=== PATIENT | female | born 1940 | race Caucasian/White ===

== ENCOUNTER → 2016-05-13 | Outpatient (REF) | payer MEDICARE ==
[2016-05-13 11:18] LABS: CALCIUM LEVEL 8.9 MG/DL (8.8-10.2); CREATININE FOR GFR 1.04 MG/DL (0.55-1.02); GLOMERULAR FILTRATION RATE 54.8 (>39); POTASSIUM SERUM 4.6 MEQ/L (3.5-5.1)
== END ==
LOC: M SFHCCLAY 07:20
PROVIDERS: ATTEND Family Medicine
DX: E11.9 Type 2 diabetes mellitus without complications (principal); I10 Essential (primary) hypertension; E78.00 Pure hypercholesterolemia, unspecified

== ENCOUNTER → 2016-05-17 | Outpatient (REF) | payer MEDICARE | LOC: M SFHCCLAY 09:36 | PROVIDERS: ATTEND Family Medicine | DX: Z00.00 Encounter for general adult medical examination without abnormal findings (principal); Z51.81 Encounter for therapeutic drug level monitoring; M79.661 Pain in right lower leg ==

== ENCOUNTER → 2016-09-13 | Outpatient (REF) | payer MEDICARE | LOC: M SFHCCLAY 09:57 | PROVIDERS: ATTEND Family Medicine | DX: E11.9 Type 2 diabetes mellitus without complications (principal) | CPT/HCPCS: 83036; G0463 ==

== ENCOUNTER → 2016-12-22 | Outpatient (REF) | payer MEDICARE ==
[2016-12-22 13:56] LABS: CALCIUM LEVEL 8.9 MG/DL (8.8-10.2); CREATININE FOR GFR 1.02 MG/DL (0.55-1.02); GLOMERULAR FILTRATION RATE 55.9 (>39); POTASSIUM SERUM 4.6 MEQ/L (3.5-5.1)
== END ==
LOC: M LABDRAWC 11:43
PROVIDERS: ATTEND Orthopaedic Surgery
DX: Z01.818 Encounter for other preprocedural examination (principal); M19.011 Primary osteoarthritis, right shoulder

== ENCOUNTER → 2017-04-13 | Outpatient (REF) | payer MEDICARE ==
[2017-04-13 12:16] LABS: ANION GAP 8 MEQ/L (8-16); BLOOD UREA NITROGEN 19 MG/DL (7-18); CALCIUM LEVEL 8.8 MG/DL (8.8-10.2); CARBON DIOXIDE LEVEL 28 MEQ/L (21-32); CHLORIDE LEVEL 104 MEQ/L (98-107); GLOMERULAR FILTRATION RATE > 60.0 (>39); GLUCOSE, FASTING 179 MG/DL (83-110); POTASSIUM SERUM 4.9 MEQ/L (3.5-5.1); SODIUM LEVEL 140 MEQ/L (136-145)
== END ==
LOC: M SFHCCLAY 09:32
PROVIDERS: ATTEND Family Medicine
DX: E11.9 Type 2 diabetes mellitus without complications (principal); I10 Essential (primary) hypertension

== ENCOUNTER → 2017-06-07 | Outpatient (REF) | payer MEDICARE | LOC: M SFHCCLAY 16:29 | DX: N30.90 Cystitis, unspecified without hematuria (principal) | CPT/HCPCS: 87186 ==

== ENCOUNTER → 2017-10-25 | Outpatient (CLI) | payer MEDICARE ==
[2017-10-25 11:29] LABS: INR 1.03; PROTHROMBIN TIME 13.6 SECONDS (12.1-14.4)
[2017-10-25 11:30] LABS: PARTIAL THROMBOPLASTIN TIME 28.3 SECONDS (25.4-37.6)
[2017-10-25 11:59] LABS: HEPATITIS B SURFACE ANTIGEN NEGATIVE (NEGATIVE)
[2017-10-25 12:11] LABS: ALBUMIN 3.5 GM/DL (3.2-5.2); ALBUMIN/GLOBULIN RATIO 1.09 (1.00-1.93); ALKALINE PHOSPHATASE 75 U/L (45-117); ALT/SGPT 40 U/L (12-78); AST/SGOT 33 U/L (7-37); BILIRUBIN,DIRECT 0.1 MG/DL (0.0-0.2); BILIRUBIN,TOTAL 0.5 MG/DL (0.2-1.0); IRON (FE) 75 UG/DL (50-170); PERCENT SATURATION 18.9 % (13.2-45.0); TOTAL IRON BINDING CAPACITY 396 UG/DL (250-450); TOTAL PROTEIN 6.7 GM/DL (6.4-8.2)
[2017-10-25 12:24] LABS: HEPATITIS C VIRUS ABY INDEX 0.1 INDEX (<0.8)
[2017-10-25 12:25] LABS: HEPATITIS B CORE ANTIBODY IGM NEGATIVE (NEGATIVE)
[2017-10-25 12:30] LABS: HEPATITIS A ANTIBODY IGM NEGATIVE (NEGATIVE)
[2017-10-28 00:14] LABS: ANCA-ATYPICAL <1:20 titer (Neg:<1:20); ANTI-MITOCHONDRIAL ANTIBODY 1.4 Units (0.0-20.0); ANTINUCLEAR ANTIBODIES DIRECT Negative (Negative); CYTOPLASMIC NEUTROP AB ANCA-C <1:20 titer (Neg:<1:20); PERINUCLEAR AB ANCA-P <1:20 titer (Neg:<1:20)
== END ==
LOC: M LAB 10:23
DX: R13.10 Dysphagia, unspecified (principal)
CPT/HCPCS: 83550

== ENCOUNTER → 2017-11-15 | Outpatient (CLI) | payer MEDICARE ==
[~2017-11-15] MED LIST: E-Z-GAS II EFFERVESCENT PACKET (SODIUM BICARB./CITRIC ACID/SIMETHICONE) As Ordered; E-Z-HD 98% w/w 340GM SUSP BTL As Ordered; E-Z-PAQUE 96% w/w SUSP 176GM BTL As Ordered
== END ==
LOC: M RAD 08:19
DX: K44.9 Diaphragmatic hernia without obstruction or gangrene (principal); K21.9 Gastro-esophageal reflux disease without esophagitis; R13.10 Dysphagia, unspecified
CPT/HCPCS: 74220

== ENCOUNTER 2017-12-07 08:03 | Day surgery (SDC) | payer MEDICARE ==
[~2017-12-07 08:03] MED LIST changes: -E-Z-GAS II EFFERVESCENT PACKET (SODIUM BICARB./CITRIC ACID/SIMETHICONE) As Ordered; -E-Z-HD 98% w/w 340GM SUSP BTL As Ordered; -E-Z-PAQUE 96% w/w SUSP 176GM BTL As Ordered; +LIDOCAINE 2% INJ 100 MG/5 ML SDV (FOR ANES.) As Ordered; +PROPOFOL 200 MG/20 ML VIAL As Ordered
[2017-12-07] MEDS ORDERED: NS 1,000 ML IV (08:15)
== END 2017-12-07 10:41 | disposition home or self-care (01) ==
LOC: M OPP 08:03
DX: R93.3 Abnormal findings on diagnostic imaging of other parts of digestive tract (principal); K57.32 Diverticulitis of large intestine without perforation or abscess without bleeding; D12.2 Benign neoplasm of ascending colon; K63.89 Other specified diseases of intestine; K57.30 Diverticulosis of large intestine without perforation or abscess without bleeding; K64.8 Other hemorrhoids; R13.10 Dysphagia, unspecified; Q39.4 Esophageal web; K22.2 Esophageal obstruction; K44.9 Diaphragmatic hernia without obstruction or gangrene; I10 Essential (primary) hypertension; E78.5 Hyperlipidemia, unspecified; E11.9 Type 2 diabetes mellitus without complications; M19.90 Unspecified osteoarthritis, unspecified site; Z78.0 Asymptomatic menopausal state; Z87.891 Personal history of nicotine dependence; Z88.8 Allergy status to other drugs, medicaments and biological substances; Z88.0 Allergy status to penicillin; Z79.84 Long term (current) use of oral hypoglycemic drugs; Z79.899 Other long term (current) drug therapy; Z80.6 Family history of leukemia; Z80.3 Family history of malignant neoplasm of breast; Z80.49 Family history of malignant neoplasm of other genital organs
CPT/HCPCS: 45385

== ENCOUNTER → 2018-02-23 | Outpatient (REF) | payer MEDICARE ==
[2018-02-23 12:31] LABS: ALBUMIN 3.4 GM/DL (3.2-5.2); ALKALINE PHOSPHATASE 79 U/L (45-117); ALT/SGPT 42 U/L (12-78); ANION GAP 7 MEQ/L (8-16); AST/SGOT 27 U/L (7-37); BILIRUBIN,TOTAL 0.4 MG/DL (0.2-1.0); BLOOD UREA NITROGEN 22 MG/DL (7-18); CALCIUM LEVEL 8.8 MG/DL (8.8-10.2); CARBON DIOXIDE LEVEL 25 MEQ/L (21-32); CHLORIDE LEVEL 108 MEQ/L (98-107); CHOLESTEROL LEVEL 161 MG/DL (<200); CHOLESTEROL RISK RATIO 4.735 (<5); CREATININE FOR GFR 0.99 MG/DL (0.55-1.30); GLOMERULAR FILTRATION RATE 57.8 (>39); GLUCOSE, FASTING 172 MG/DL (70-100); HDL CHOLESTEROL 34 MG/DL (>40); LDL CHOLESTEROL 94 MG/DL (<100); NON-HDL-C 127 MG/DL; POTASSIUM SERUM 4.9 MEQ/L (3.5-5.1); SODIUM LEVEL 140 MEQ/L (136-145); TOTAL PROTEIN 6.5 GM/DL (6.4-8.2); TRIGLYCERIDES LEVEL 166 MG/DL (<150)
[2018-02-23 14:37] LABS: ESTIMATED AVERAGE GLUCOSE 174 MG/DL (60-110); HEMOGLOBIN A1c 7.7 %
== END ==
LOC: M SFHCCLAY 06:53
DX: E11.9 Type 2 diabetes mellitus without complications (principal); I10 Essential (primary) hypertension
CPT/HCPCS: 84443

== ENCOUNTER → 2018-07-04 | Outpatient (REF) | payer MEDICARE ==
[~2018-07-04] MED LIST changes: +ATEN25TA PO; +BREO1INH3 INH; +ETOD400T PO; +FURO20TA2 PO; +GABA-843 PO; -LIDOCAINE 2% INJ 100 MG/5 ML SDV (FOR ANES.) As Ordered; +LOSA25TA14 PO; +LOVA20TA2 PO; +METF500T13 PO; +OMEP20CA3 PO; +POTA10CA32 PO; -PROPOFOL 200 MG/20 ML VIAL As Ordered; +TRIA37.53 PO
[2018-07-04 12:20] LABS: CALCIUM LEVEL 8.7 MG/DL (8.8-10.2); CREATININE FOR GFR 1.04 MG/DL (0.55-1.30); GLOMERULAR FILTRATION RATE 54.6 (>39); POTASSIUM SERUM 4.9 MEQ/L (3.5-5.1)
[2018-07-04 12:43] LABS: HEMOGLOBIN A1c 8.8 %
== END ==
LOC: M SFHCCLAY 08:18
PROVIDERS: ATTEND Family Medicine
DX: E11.9 Type 2 diabetes mellitus without complications (principal)

== ENCOUNTER → 2019-03-20 | Outpatient (REF) | payer MEDICARE ==
[~2019-03-20] MED LIST changes: -OMEP20CA3 PO; +OMEP20CA4 PO
[2019-03-20 13:43] LABS: HEMATOCRIT 37.7 % (36.0-47.0); HEMOGLOBIN 11.7 g/dl (12.0-15.5); MEAN CORPUSCULAR HEMOGLOBIN 26.8 pg (27.0-33.0); MEAN CORPUSCULAR VOLUME 86.5 fl (80.0-96.0); PLATELET COUNT, AUTOMATED 207 10^3/uL (150-450); RED BLOOD COUNT 4.36 10^6/uL (4.00-5.40); WHITE BLOOD COUNT 7.8 10^3/uL (4.0-10.0)
[2019-03-20 14:12] LABS: MAU/CREAT RATIO 13.4 MCG/MG (0.0-30.0)
[2019-03-20 14:21] LABS: ALBUMIN 3.6 GM/DL (3.2-5.2); BILIRUBIN,TOTAL 0.4 MG/DL (0.2-1.0); CALCIUM LEVEL 9.2 MG/DL (8.8-10.2); CHOLESTEROL RISK RATIO 3.78 (<5); CREATININE FOR GFR 1.11 MG/DL (0.55-1.30); GLOMERULAR FILTRATION RATE 50.5 (>39); POTASSIUM SERUM 4.8 MEQ/L (3.5-5.1); TOTAL PROTEIN 7.2 GM/DL (6.4-8.2)
== END ==
LOC: M SFHCCLAY 08:48
PROVIDERS: ATTEND Family Medicine
DX: E11.9 Type 2 diabetes mellitus without complications (principal); I10 Essential (primary) hypertension; R06.09 Other forms of dyspnea

== ENCOUNTER → 2019-03-20 | Outpatient (CLI) | payer MEDICARE ==
--- NOTE | 2019-03-20 10:01 | REP ---
Two-view chest: 03/20/2019. Indication: Dyspnea. Comparison: 03/01/2011. Findings: The lungs are clear. There is no pleural effusion or pneumothorax. The cardiomediastinal silhouette is unremarkable. There is mild hyperinflation. Small sliding-type hiatal hernia is noted. Impression: There is no acute cardiopulmonary process. Electronically Signed by Carter Lee DO 03/20/2019 09:52 A
== END ==
LOC: M CLY 09:39
PROVIDERS: ATTEND Family Medicine
DX: K44.9 Diaphragmatic hernia without obstruction or gangrene (principal); R06.09 Other forms of dyspnea

== ENCOUNTER → 2019-06-19 | Outpatient (REF) | payer MEDICARE ==
[~2019-06-19] MED LIST changes: +OMEP1CAP73 PO; -OMEP20CA4 PO
[2019-06-19 12:11] LABS: CALCIUM LEVEL 9.2 MG/DL (8.8-10.2); CREATININE FOR GFR 1.07 MG/DL (0.55-1.30); GLOMERULAR FILTRATION RATE 52.7 (>39); POTASSIUM SERUM 5.3 MEQ/L (3.5-5.1)
[2019-06-19 12:23] LABS: HEMOGLOBIN A1c 8.3 %
== END ==
LOC: M SFHCCLAY 09:21
PROVIDERS: ATTEND Family Medicine
DX: E11.9 Type 2 diabetes mellitus without complications (principal); I10 Essential (primary) hypertension
CPT/HCPCS: 80048; 83036; G0463

== ENCOUNTER → 2019-07-01 | Outpatient (REF) | payer MEDICARE, OTHER | LOC: M LAB REF 19:00 | PROVIDERS: ATTEND Dermatology | DX: D04.30 Carcinoma in situ of skin of unspecified part of face (principal); D23.62 Other benign neoplasm of skin of left upper limb, including shoulder | CPT/HCPCS: 11102; 11103; 17000; 17003; 88305; G0463 ==

== ENCOUNTER → 2019-10-01 | Outpatient (REF) | payer MEDICARE, OTHER ==
[2019-10-01 17:42] LABS: HEMOGLOBIN A1c 8.3 %
[2019-10-01 17:50] LABS: ALBUMIN 3.4 GM/DL (3.2-5.2); BILIRUBIN,TOTAL 0.4 MG/DL (0.2-1.0); CALCIUM LEVEL 8.5 MG/DL (8.8-10.2); CHOLESTEROL RISK RATIO 4.09 (<5); CREATININE FOR GFR 1.01 MG/DL (0.55-1.30); FREE T4 1.22 NG/DL (0.76-1.46); GLOMERULAR FILTRATION RATE 56.1 (>32); POTASSIUM SERUM 4.6 MEQ/L (3.5-5.1); THYROID STIMULATING HORMONE 1.42 uIU/ML (0.358-3.740); TOTAL PROTEIN 6.8 GM/DL (6.4-8.2)
== END ==
LOC: M SFHCCLAY 10:01
PROVIDERS: ATTEND Family Medicine
DX: R41.89 Other symptoms and signs involving cognitive functions and awareness (principal); E11.9 Type 2 diabetes mellitus without complications; I10 Essential (primary) hypertension
CPT/HCPCS: 80053; 80061; 82607; 83036; 84439; 84443; G0463

== ENCOUNTER → 2019-10-11 | Outpatient (REF) | payer MEDICARE, OTHER | LOC: M LAB REF 11:20 | PROVIDERS: ATTEND Internal Medicine Cardiovascular Disease | DX: R07.89 Other chest pain (principal); Z11.59 Encounter for screening for other viral diseases | CPT/HCPCS: G0463; U0003 ==

== ENCOUNTER → 2019-10-21 | Outpatient (REF) | payer MEDICARE, OTHER ==
[2019-10-21 13:53] LABS: CREATININE FOR GFR 1.08 MG/DL (0.55-1.30)
== END ==
LOC: M LABDRAWC 11:27
PROVIDERS: ATTEND Internal Medicine Cardiovascular Disease
DX: Z00.00 Encounter for general adult medical examination without abnormal findings (principal)

== ENCOUNTER → 2019-12-20 | Outpatient (REF) | payer MEDICARE, OTHER ==
[2019-12-20 13:33] LABS: CALCIUM LEVEL 8.9 MG/DL (8.8-10.2); CREATININE FOR GFR 1.05 MG/DL (0.55-1.30); GLOMERULAR FILTRATION RATE 53.7 (>32)
[2019-12-20 15:37] LABS: HEMOGLOBIN A1c 7.6 %
== END ==
LOC: M LABDRAWC 11:28
PROVIDERS: ATTEND Family Medicine
DX: E11.9 Type 2 diabetes mellitus without complications (principal); I10 Essential (primary) hypertension
CPT/HCPCS: 36415; 80048; 83036; G0463

== ENCOUNTER → 2020-03-26 | Outpatient (REF) | payer MEDICARE, OTHER ==
[2020-03-26 12:25] LABS: ALBUMIN 3.5 GM/DL (3.2-5.2); BILIRUBIN,TOTAL 0.3 MG/DL (0.2-1.0); CALCIUM LEVEL 9.1 MG/DL (8.8-10.2); CHOLESTEROL RISK RATIO 3.268 (<5); CREATININE FOR GFR 1.24 MG/DL (0.55-1.30); GLOMERULAR FILTRATION RATE 44.3 (>32); TOTAL PROTEIN 6.8 GM/DL (6.4-8.2)
[2020-03-26 13:19] LABS: HEMOGLOBIN A1c 7.8 %
== END ==
LOC: M SFHCCLAY 08:00
PROVIDERS: ATTEND Family Medicine
DX: I10 Essential (primary) hypertension (principal); E11.9 Type 2 diabetes mellitus without complications

== ENCOUNTER 2020-07-16 15:39 | Inpatient (IN) | payer MEDICARE, OTHER ==
[~2020-07-16] VITALS: Ht 165.1 cm; Wt 101.1 kg
[~2020-07-16 15:39] MED LIST changes: +GABA-282 PO; -GABA-843 PO
[2020-07-16] MEDS ORDERED: METOPROLOL TART 25 MG TABLET PO ONE (15:55)
[2020-07-16 16:20] LABS: BASO # 0.1 10^3/uL (0.0-0.2); BASO % 0.6 % (0.0-1.0); EOS # 0.1 10^3/uL (0.0-0.5); EOS % 0.5 % (0.0-3.0); HEMATOCRIT 33.7 % (36.0-47.0); HEMOGLOBIN 9.8 g/dl (12.0-15.5); LYMPH # 1.6 10^3/uL (1.5-5.0); LYMPH % 13.7 % (24.0-44.0); MEAN CORPUSCULAR HEMOGLOBIN 22.8 pg (27.0-33.0); MEAN CORPUSCULAR HGB CONC 29.1 g/dl (32.0-36.5); MEAN CORPUSCULAR VOLUME 78.6 fl (80.0-96.0); MONO # 0.7 10^3/uL (0.0-0.8); NEUTROPHILS # 8.9 10^3/uL (1.5-8.5); NEUTROPHILS % 78.2 % (36.0-66.0); PLATELET COUNT, AUTOMATED 257 10^3/uL (150-450); RED BLOOD COUNT 4.29 10^6/uL (4.00-5.40); WHITE BLOOD COUNT 11.3 10^3/uL (4.0-10.0)
--- NOTE | 2020-07-16 16:20 | REP ---
INDICATION: DYSPNEA/COUGH. COMPARISON: PA and lateral chest dated 03/20/2019. TECHNIQUE: Portable AP chest with the patient sitting. FINDINGS: The right and left costophrenic angles are effaced as an interval change suggestive of bilateral pleural effusions. The remainder the lung zurita are clear. Cardiac size is upper normal. The miguel, mediastinum, and skeletal structures are unremarkable. IMPRESSION: Bilateral pleural effusions. <Electronically signed by Luis Li > 07/16/20 [id number]
[2020-07-16 16:29] LABS: VENOUS BASE EXCESS -5.2 (-2.0-2.0); VENOUS HCO3 20.8 MEQ/L (23.0-27.0); VENOUS O2 SATURATION 77.5 % (60.0-80.0); VENOUS PARTIAL PRESSURE CO2 42.5 mmHg (38.0-50.0); VENOUS PARTIAL PRESSURE O2 46.2 mmHg (30.0-50.0); VENOUS PH 7.308 UNITS (7.330-7.430); VENOUS STANDARD HCO3 19.8 MEQ/L; VENOUS TOTAL CO2 22.1 MEQ/L (24.0-28.0)
[2020-07-16] MEDS: METOPROLOL 5 MG/5 ML VIAL IV SCH ×3 (16:40→16:50)
[2020-07-16 16:41] LABS: INR 1.08; PROTHROMBIN TIME 14.2 SECONDS (12.5-14.3)
[2020-07-16 16:54] LABS: RSV AMPLIFICATION NEGATIVE (NEGATIVE)
[2020-07-16 16:56] LABS: ALBUMIN 3.5 GM/DL (3.2-5.2); ALT/SGPT 43 U/L (12-78); BILIRUBIN,DIRECT 0.1 MG/DL (0.0-0.2); BILIRUBIN,TOTAL 0.7 MG/DL (0.2-1.0); BLOOD UREA NITROGEN 18 MG/DL (7-18); CALCIUM LEVEL 8.7 MG/DL (8.8-10.2); CARBON DIOXIDE LEVEL 25 MEQ/L (21-32); CHLORIDE LEVEL 110 MEQ/L (98-107); CREATININE FOR GFR 0.94 MG/DL (0.55-1.30); GLOMERULAR FILTRATION RATE > 60.0 (>32); GLUCOSE, FASTING 136 MG/DL (70-100); NT-PRO BNP 2627 PG/ML (<450); POTASSIUM SERUM 5.5 MEQ/L (3.5-5.1); SODIUM LEVEL 139 MEQ/L (136-145)
[2020-07-16] MEDS ORDERED: DEXTROSE 50% 50 ML SYRINGE IV PRN (19:10)
[2020-07-16] MEDS ORDERED: GLUCOSE 4GM CHEW TABLET PO PRN (19:10)
[2020-07-16] MEDS ORDERED: ACETAMINOPHEN TAB 650MG DOSE (2X325MG) PO PRN (19:10)
[2020-07-16] MEDS ORDERED: GLUCAGON INJ 1MG VIAL SC PRN (19:10)
[2020-07-16] MEDS ORDERED: FUROSEMIDE 40MG/4ML VIAL (J1940) IV ONE (19:10)
[2020-07-16] MEDS ORDERED: LOSA50TA88 PO (19:17)
[2020-07-16] MEDS ORDERED: BROV15NE NEB (19:19)
[2020-07-16] MEDS ORDERED: BUDE0.5S6 INH (19:19)
[2020-07-16] MEDS ORDERED: GLIP5TAB8 PO (19:20)
[2020-07-16] MEDS ORDERED: ISOVUE-370 76% 100ML VIAL As Ordered ONE (20:00)
[2020-07-16] MEDS ORDERED: NITROGLYCERIN 0.4 MG SUBL TABLET SL PRN (20:30)
--- NOTE | 2020-07-16 20:37 | HPEPDOC ---
[facility] Medical History & Physical Date of Admission Jul 16, 2020 Date of Service: Jul 16, 2020 Attending Physician: Brenda Mcleod MD History and Physical CHIEF COMPLAINT: Increased shortness of breath, chest pressure HISTORY OF PRESENT ILLNESS: Patient is an 79-year-old female with PMH of asthma, hypertension, hyperlipidemia, diabetes mellitus, GERD, hypokalemia who presented to [facility] emergency room today from her pulmonology office after having increased shortness of breath and substernal chest pressure. This morning she had noted increased worsening shortness of breath, especially with activity. It was associated with palpitations, increased flushing of the face. She went to see her product safety technician and upon entering the office the patient's vital signs were taken and she was noted to be hypoxic, in atrial fibrillation. They placed her on oxygen and called the ambulance to take her to the emergency room. The patient complains of progressive worsening shortness of breath over months. She also complains of having palpitations for almost a year. Her shortness of breath is worse laying flat, with increased activity and she has occasional intermittent substernal chest pressure. Chest pressure was described as localized, nonradiating and worse with deep inspiration. She is also noted lower extremity edema which has worsened as well. She denies increased use of salt with her food, cough, nausea, vomiting, sick contacts, history of recent travel, history of DVT or pulmonary emboli, hormonal therapy, abdominal pain, right headedness, dizziness, blurry vision, decreased appetite, polyuria, recent infections. In the emergency room vital signs showed temperature 98.3, respiratory rate 18, heart rate 669592 atrial fibrillation with rapid ventricular rate. According to ER attending, she was noted to be in the mid- 80's on room air, O2 sats increased [place] 41823% on 2 L NC. Her blood pressure was elevated at 845353/69051. CXR showed b/l pleural effusions. VBG pH 7.308, potassium elevated at 5.5, BNP 2627, H&H 9.8/33.7, mild elevation in WBC at 11.3, AST mildly elevated at 46, troponin 1 negative. The ER attending reached out to Dr. Krishna her product safety technician who stated the patient is never in the mid-80s on room air at baseline. She also has no recorded history of atrial fibrillation. The patient's case was discussed with Dr. Parker, on-call padded products finisher, who recommended giving one-time dose of metoprolol which did decrease her heart rate below 100's. The patient was admitted by hospitalist for SOB likely 2/2 to pleural effusions, CHF from atrial fibrillation with RVR, rule out pulmonary embolus, hypertensive urgency. REVIEW OF SYSTEMS: Neg except for what is mentioned above PAST MEDICAL HISTORY: Asthma, hypertension, hyperlipidemia, diabetes mellitus, GERD, hypokalemia PAST SURGICAL HISTORY: None FAMILY HISTORY: Noncontributory SOCIAL HISTORY: Prior smoker for 14 years one pack per day. Quit 30 years ago. Drinks 1 glass of wine nightly with dinner, denies illicit drug use. She lives alone and is independent without use of a walker or cane. No recent falls at home. Her primary care provider is Malik shafer M.D. Her product safety technician is Dr. Krishna. She is a full code. ALLERGIES: Please see below. HOME MEDICATIONS: Please see below. PHYSICAL EXAMINATION: VS: temperature 98.3, respiratory rate 18, heart rate 300799 atrial fibrillation with RVR, 77273% on 2 L NC, BP 603019/83626 CONSTITUTIONAL: comfortable resting in bed, AAO x 3 EYES: PERRLA, EOM intact HENT, MOUTH: Normocephalic, atraumatic, moist mucous membranes, NC in place NECK: SUPPLE, mildly elevated JVD, no lymphadenopathy, no carotid bruit CV: irregularly irregular rhythm, rapid. no murmurs/rubs/gallops RESPIRATORY: mild crackles in b/l posterior lung bases. no rales/r honchi/wheezes. GI: obese abd, BS positive in 4 quadrants, soft, nontender, nondistended, no rebound or guarding, no organomegaly : Deferred MUSCULOSKELETAL: Normal ROM. No cyanosis, clubbing, swelling, joint deformity, +2 pitting lower extremity edema INTEGUMENTARY: Intact, no rashes, no lesions, no erythema NEUROLOGIC: Cranial Nerves II-XII are intact, no focal deficits PSYCHIATRIC: Mood and affect are normal LABORATORY DATA: Please see below IMAGING: Follow up CTA chest, echocardiogram CXR: Bilateral pleural effusions. ASSESSMENT: 79-year-old female with PMH of asthma, hypertension, hyperlipidemia, diabetes mellitus, GERD, hypokalemia admitted for SOB likely 2/2 to pleural effusions, CHF from atrial fibrillation with RVR, rule out pulmonary embolus, hypertensive urgency. PLAN: SOB likely 2/2 to pleural effusions, CHF from atrial fibrillation with RVR, r/o pulmonary embolus -Desaturated in mid-80's per ER attending, currently saturating well on 2 L NC 98% -CXR above -Please see below for treatment of each individual issue CHF 2/2 to atrial fibrillation with RVR -B/l pleural effusion, lower ext edema, orthopnea, worsening SOB over months with exertion, chest pressure, mildly elevated JVD -No prior cardiac history -ECG: atrial fib with RVR -Neg trop x 1 -Started on metoprolol tartrate Q6H with holding parameters, given 40 mg IV lasix x 1 then 40 mg IV lasix daily in the AM (can increase if pressure and fluid status allows) -F/u echocardiogram, 2 additional trop tests, daily wt, close monitoring of I&O -2 L fluid restriction, low salt diet -Dr. Parker, cardiology, to see patient in PCU 07/17/20 Atrial fibrillation with RVR, new diagnosis -Palpitations for up to 1 year, associated chest pressure intermittent with incr SOB -R/o infectious cause with BCx, UA -CTA chest to r/o PE -Echocardiogram to r/o valvular cause, etc -Rate control with BB Q6Hs, AC with enoxaparin BID therapeutic dosing. Can transition to PO in the AM -Cards consulted Chest pressure r/o pulmonary emboli, ACS, CHF as cause -Trop x 1 neg, no ST or T wave changes on ECG -CTA chest tonight, cycle troponins x 2 additional tests -Therapeutic dosing lovenox, BB, nitro PRN, supplemental O2. currently pressure is controlled, can add morphine PRN. -Tx for CHF above -Tele overnight Hypertensive urgency -BP uncontrolled in ER, improved some with BB -C/w BB Q6H with holding parameters, lasix, losartan (monitor Cr closely with being given contrast, lasix and losartan in AM- d/c in the AM if Cr bumps) Hyperkalemia -K 5.5 -Holding home potassium supplement and watching level with diuresis -Daily labs DM type II -Holding home PO meds -Consistent carb diet -ISS, FS AC/HS HLD -Statin Asthma -No wheezing, not suspecting exacerbation -C/w home medications/inhalers GERD -PPI DVT px -Lovenox BID DISPOSITION: Admitted as acute inpatient to PCU. Dr. Parker, cardiology, consulted and will see in AM. Patient's daughter was at bedside, would like update 07/17/20- Nahomy Dolan [phone]. Vital Signs Vital Signs Date Time Temp Pulse Resp B/P (MAP) Pulse Ox O2 Delivery O2 Flow Rate FiO2 07/16/20 18:45 119 18 169/92 (117) 99 Nasal Cannula 2.0 07/16/20 15:54 98.3 Laboratory Data Labs 24H Laboratory Tests 2 07/16/20 15:48: Immature Granulocyte % (Auto) 1.0, Neutrophils (%) (Auto) 78.2H, Lymphocytes (%) (Auto) 13.7L, Monocytes (%) (Auto) 6.0, Eosinophils (%) (Auto) 0.5, Basophils (%) (Auto) 0.6, Neutrophils # (Auto) 8.9H, Lymphocytes # (Auto) 1.6, Monocytes # (Auto) 0.7, Eosinophils # (Auto) 0.1, Basophils # (Auto) 0.1, Nucleated Red B lood Cells % (auto) 0.0, Prothrombin Time 14.2H, Prothromb Time International Ratio 1.08, Blood Gas Bicarbonate Standard 19.8, Venous Blood pH 7.308L, Venous Blood Partial Pressure CO2 42.5, Venous Blood Partial Pressure O2 46.2, Venous Blood Total Carbon Dioxide 22.1L, Venous Blood HCO3 20.8L, Venous Blood Oxygen Saturation 77.5, Venous Blood Base Excess -5.2L, Anion Gap 4L, Glomerular Filtration Rate > 60.0, Calcium Level 8.7L, Total Bilirubin 0.7, Direct Bilirubin 0.1, Aspartate Amino Transf (AST/SGOT) 46H, Alanine Aminotransferase (ALT/SGPT) 43, Alkaline Phosphatase 85, HN-Sxt-R-Type Natriuretic Peptide 2627H, Total Protein 7.0, Albumin 3.5, Albumin/Globulin Ratio 1.0L, Thyroid Stimulating Hormone (TSH) 1.650, Coronavirus (COVID-19)(PCR) NEGATIVE, Influenza Type A (RT- PCR) NEGATIVE, Influenza Type B (RT-PCR) NEGATIVE, Respiratory Syncytial Virus (PCR) NEGATIVE 07/16/20 18:26: POC Troponin I (Misc) 0.01 CBC/BMP Laboratory Tests 07/16/20 15:48 Home Medications Scheduled Arformoterol Tartrate (Brovana) 15 Mcg/2 Ml Vial.neb, 15 MCG NEB BID LAST DOSE TAKEN 07/15/20 Budesonide (Budesonide) 0.5 Mg/2 Ml Ampul.neb, 0.5 MG INH BID LAST DOSE TAKEN 07/15/20 Furosemide (Furosemide) 20 Mg Tab, 20 MG PO BID Glipizide (Glipizide) 5 Mg Tablet, 5 MG PO BID Losartan Potassium (Losartan Potassium) 50 Mg Tablet, 50 MG PO DAILY Lovastatin (Lovastatin) 20 Mg Tab, 20 MG PO QHS Metformin HCl (Metformin HCl) 500 Mg Tab, 500 MG PO BID Omeprazole (Omeprazole) 20 Mg Cap, 20 MG PO DAILY Potassium Chloride (Potassium Chloride) 10 Meq Cap, 10 MEQ PO DAILY Allergies Coded Allergies: Penicillins (Verified Allergy, Unknown, 07/16/20) A-FIB/CHADSVASC A-FIB History Current/History of A-Fib/PAF?: No Current PO Anticoag Therapy: No Age/Risk Factor Scoring CHADSVASC: CHADSVASC Response (Comments) Value Age Risk Factor Age >/= 75 years old 2 Gender Risk Factor Female 1 Hx of CHF No 0 Hx of HTN Yes 1 Hx of Stroke/TIA/or VTE No 0 Hx of Diabetes Yes 1 Hx of Vascular Disease No 0 Total 5 Treatment Treatment ordered: Other Other anticoagulant ordered: lovenox BID Brenda Mcleod MD Jul 16, 2020 20:37
--- NOTE | 2020-07-16 20:59 | REPVR ---
PROCEDURE INFORMATION: Exam: CT Angiography Chest With Contrast Exam date and time: 07/16/2020 8:02 PM Age: 79 years old Clinical indication: Chest pain; Additional info: R/O pulmonary embolism TECHNIQUE: Imaging protocol: Computed tomographic angiography of the chest with contrast. 3D rendering (Not supervised by radiologist): MIP and/or 3D reconstructed images were created by the technologist. Radiation optimization: All CT scans at this facility use at least one of these dose optimization techniques: automated exposure control; mA and/or kV adjustment per patient size (includes targeted exams where dose is matched to clinical indication); or iterative reconstruction. Contrast material: ISOVUE 370; Contrast volume: 75 ml; Contrast route: INTRAVENOUS (IV); COMPARISON: GA PORTABLE CHEST X-RAY 07/16/2020 3:56 PM FINDINGS: Pulmonary arteries: The main pulmonary artery measures 26 mm. No pulmonary embolism is identified. Aorta: The ascending thoracic aorta measures 30 mm. Lungs: Minimal scattered fibro-atelectatic change with slight interstitial prominence and mild bilateral lower lobe compressive atelectasis. Pleural spaces: Small bilateral pleural effusions, right greater than left. Heart: The left atrium measures 4.9 cm in its AP dimension. Mediastinal space: Mild hiatal hernia. Lymph nodes: Unremarkable. No enlarged lymph nodes. Bones/joints: Unremarkable. No acute fracture. Soft tissues: Unremarkable. IMPRESSION: 1. Small bilateral pleural effusions, right greater than left with minimal scattered fibro-atelectatic change and slight interstitial prominence. There is mild bilateral lower lobe compressive atelectasis. 2. Mild hiatal hernia. 3. Mild cardiomegaly. 4. Otherwise negative CTA chest. No pulmonary embolism is identified. Electronically signed by: Darian Benton On 07/16/2020 20:59:39 PM
[2020-07-16] MEDS: BUDESONIDE 0.5 MG/2 ML INHALATION SUSPENSION INH SCH (21:00)
[2020-07-16] MEDS: SALMETEROL DISKUS 50MCG INHALER (SEREVENT) INH SCH (21:00)
[2020-07-16] MEDS: HumaLOG INSULIN (NovoLOG) PER UNIT SC SCH (21:00)
[2020-07-16] MEDS: ENOXAPARIN 100MG/1ML SYRINGE (J1650 PER 10MG) SC SCH (21:07)
[2020-07-16] MEDS: SIMVASTATIN 20 MG TAB PO SCH (21:07)
[2020-07-16 21:10] VITALS: BP 134/78
[2020-07-17 00:30] VITALS: BP 128/79
[2020-07-17] MEDS: METOPROLOL TART 25 MG TABLET PO SCH ×4 (00:39→17:20)
[2020-07-17 03:50] LABS: ALBUMIN 3.1 GM/DL (3.2-5.2); ALT/SGPT 36 U/L (12-78); BILIRUBIN,TOTAL 0.6 MG/DL (0.2-1.0); BLOOD UREA NITROGEN 17 MG/DL (7-18); CALCIUM LEVEL 8.3 MG/DL (8.8-10.2); CARBON DIOXIDE LEVEL 25 MEQ/L (21-32); CHLORIDE LEVEL 107 MEQ/L (98-107); CREATININE FOR GFR 0.94 MG/DL (0.55-1.30); GLOMERULAR FILTRATION RATE > 60.0 (>32); GLUCOSE, FASTING 170 MG/DL (70-100); HEMATOCRIT 29.6 % (36.0-47.0); HEMOGLOBIN 8.7 g/dl (12.0-15.5); MEAN CORPUSCULAR HEMOGLOBIN 22.6 pg (27.0-33.0); MEAN CORPUSCULAR HGB CONC 29.4 g/dl (32.0-36.5); MEAN CORPUSCULAR VOLUME 76.9 fl (80.0-96.0); PLATELET COUNT, AUTOMATED 253 10^3/uL (150-450); POTASSIUM SERUM 4.4 MEQ/L (3.5-5.1); RED BLOOD COUNT 3.85 10^6/uL (4.00-5.40); SODIUM LEVEL 139 MEQ/L (136-145); TOTAL PROTEIN 6.3 GM/DL (6.4-8.2); WHITE BLOOD COUNT 10.1 10^3/uL (4.0-10.0)
[2020-07-17 04:00] VITALS: BP 130/65
--- NOTE | 2020-07-17 06:37 | ECGEPIP ---
[facility] - ED Test Date: 2020-07-16 Pat Name: FRANCE BRYANT Department: Room: - Gender: Female Tool Lathe Operator: ROBERT : 1940 Requested By: Yris Medrano Order Number: [id number] Reading MD: Octaviano Andre Measurements Intervals Henry Rate: 120 P: MD: QRS: 65 QRSD: 62 T: 46 QT: 324 QTc: 457 Interpretive Statements Atrial fibrillation with rapid ventricular response with premature ventricular or aber aberrantly conducted complexes low qrs voltage limb leads Delayed R wave progression Nonspecific ST T wave changes No prior ECG for comparison Electronically Signed on 07-17-2020 6:36:58 EDT by Octaviano Andre
[2020-07-17] MEDS: BUDESONIDE 0.5 MG/2 ML INHALATION SUSPENSION INH SCH ×2 (07:41→20:42)
[2020-07-17 08:00] VITALS: BP 142/90
[2020-07-17] MEDS: ENOXAPARIN 100MG/1ML SYRINGE (J1650 PER 10MG) SC SCH (08:30)
[2020-07-17] MEDS: HumaLOG INSULIN (NovoLOG) PER UNIT SC SCH ×4 (08:30→21:00)
[2020-07-17] MEDS: FUROSEMIDE 40MG/4ML VIAL (J1940) IV SCH (08:31)
[2020-07-17] MEDS: OMEPRAZOLE 20 MG CAP PO SCH (08:31)
[2020-07-17] MEDS ORDERED: FUROSEMIDE 20 MG TAB PO SCH (09:00)
[2020-07-17] MEDS ORDERED: LOSARTAN 50MG TABLET PO SCH (09:00)
[2020-07-17] MEDS ORDERED: SLF 3 ML SYR IV PRN (10:55)
[2020-07-17 12:00] VITALS: BP 106/58
[2020-07-17] MEDS: SALMETEROL DISKUS 50MCG INHALER (SEREVENT) INH SCH ×2 (13:02→20:42)
[2020-07-17] MEDS: SLF 3 ML SYR IV SCH ×2 (14:00→21:49)
[2020-07-17 16:00] VITALS: BP 119/78
[2020-07-17] MEDS ORDERED: RAMELTEON 8 MG TAB (ROZEREM) PO PRN (16:30)
--- NOTE | 2020-07-17 16:42 | IPNPDOC ---
Text Note Date of Service The patient was seen on 07/17/20. NOTE SUBJECTIVE: The patient reports that she is feeling significantly better today, and the swelling in her legs has also gone down quite a bit as well. REVIEW OF SYSTEMS: Neg except for what is mentioned above PHYSICAL EXAMINATION: VS: temperature 98.3, respiratory rate 18, heart rate 169150 atrial fibrillation with RVR, 40675% on 2 L NC, BP 538031/64577 CONSTITUTIONAL: comfortable resting in bed, AAO x 3 EYES: PERRLA, EOM intact HENT, MOUTH: Normocephalic, atraumatic, moist mucous membranes, NC in place NECK: SUPPLE, mildly elevated JVD, no lymphadenopathy, no carotid bruit CV: irregularly irregular rhythm, rapid. no murmurs/rubs/gallops RESPIRATORY: mild crackles in b/l posterior lung bases. no rales/rhonchi/wheezes. GI: obese abd, BS positive in 4 quadrants, soft, nontender, nondistended, no rebound or guarding, no organomegaly : Deferred MUSCULOSKELETAL: Normal ROM. No cyanosis, clubbing, swelling, joint deformity, +2 pitting lower extremity edema INTEGUMENTARY: Intact, no rashes, no lesions, no erythema NEUROLOGIC: Cranial Nerves II-XII are intact, no focal deficits PSYCHIATRIC: Mood and affect are normal ASSESSMENT: 79-year-old female with PMH of asthma, hypertension, hyperlipidemia, diabetes mellitus, GERD, hypokalemia admitted for SOB likely 2/2 to pleural effusions, CHF from atrial fibrillation with RVR, rule out pulmonary embolus, hypertensive urgency. 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 Parker, cardiology, to see patient Atrial fibrillation with RVR, new diagnosis -Palpitations for up to 1 year, associated chest pressure intermittent with incr SOB -R/o infectious cause with BCx, UA -CTA chest to r/o PE -Echocardiogram to r/o valvular cause, etc -Rate control with BB Q6Hs, AC with enoxaparin BID therapeutic dosing. Can transition to PO in the AM -Cardiology consulted Chest pressure r/o pulmonary emboli, ACS, CHF as cause -Trops neg, no ST or T wave changes on ECG -BB, nitro PRN, supplemental O2 -Tx for CHF above -Continue telemetry Hypertensive urgency -C/w BB Q6H with holding parameters, lasix, losartan Hyperkalemia -Holding home potassium supplement and watching level with diuresis -Daily labs DM type II -Holding home PO meds -Consistent carb diet -ISS, FS AC/HS HLD -Statin Asthma -No wheezing, not suspecting exacerbation -C/w home medications/inhalers GERD -PPI DVT px -Lovenox BID DISPOSITION: Continue diuresis, continue to wean oxygen. Evaluation by cardiology pending. Discharge home when medically stable. Patient's daughter would like updates - Nahomy Dolan [phone]. VS,Bertoe, I+O VS, Fishbone, I+O Laboratory Tests 07/17/20 03:09 Vital Signs Date Time Temp Pulse Resp B/P (MAP) Pulse Ox O2 Delivery O2 Flow Rate FiO2 07/17/20 12:00 74 106/58 07/17/20 12:00 97.2 20 95 Room Air 07/16/20 18:45 2.0 I&O- Last 24 Hours up to 6 AM 07/17/20 05:59 Intake Total 120 ml Output Total 1050 ml Balance -930 ml TRISTIAN FAJARDO DO Jul 17, 2020 16:42
[2020-07-17 19:40] LABS: INR 1.08; PROTHROMBIN TIME 14.3 SECONDS (12.5-14.3)
[2020-07-17 20:00] VITALS: BP 114/75
[2020-07-17] MEDS: WARFARIN SOD 5MG TAB PO SCH (21:44)
[2020-07-17] MEDS: SIMVASTATIN 20 MG TAB PO SCH (21:44)
[2020-07-18] VITALS (7 sets, daily range): BP systolic 98–138; BP diastolic 59–89
[2020-07-18] MEDS: METOPROLOL TART 25 MG TABLET PO SCH ×5 (00:40→23:05)
[2020-07-18] MEDS: SLF 3 ML SYR IV SCH ×3 (06:09→22:21)
[2020-07-18 06:45] LABS: HEMATOCRIT 29.2 % (36.0-47.0); HEMOGLOBIN 8.5 g/dl (12.0-15.5); MEAN CORPUSCULAR HEMOGLOBIN 22.6 pg (27.0-33.0); MEAN CORPUSCULAR HGB CONC 29.1 g/dl (32.0-36.5); MEAN CORPUSCULAR VOLUME 77.7 fl (80.0-96.0); PLATELET COUNT, AUTOMATED 216 10^3/uL (150-450); RED BLOOD COUNT 3.76 10^6/uL (4.00-5.40); WHITE BLOOD COUNT 7.7 10^3/uL (4.0-10.0)
[2020-07-18 06:52] LABS: INR 1.13; PROTHROMBIN TIME 14.7 SECONDS (12.5-14.3)
[2020-07-18 07:01] LABS: BILIRUBIN,TOTAL 0.4 MG/DL (0.2-1.0); CALCIUM LEVEL 8.1 MG/DL (8.8-10.2); CREATININE FOR GFR 1.06 MG/DL (0.55-1.30); GLOMERULAR FILTRATION RATE 53.1 (>32); POTASSIUM SERUM 4.2 MEQ/L (3.5-5.1)
[2020-07-18 07:02] LABS: TOTAL PROTEIN 6.1 GM/DL (6.4-8.2)
[2020-07-18] MEDS: BUDESONIDE 0.5 MG/2 ML INHALATION SUSPENSION INH SCH ×2 (07:25→20:00)
[2020-07-18] MEDS: SALMETEROL DISKUS 50MCG INHALER (SEREVENT) INH SCH ×2 (07:25→20:00)
[2020-07-18] MEDS: OMEPRAZOLE 20 MG CAP PO SCH (08:21)
[2020-07-18] MEDS: FUROSEMIDE 40MG/4ML VIAL (J1940) IV SCH ×2 (08:22→17:21)
[2020-07-18] MEDS: HumaLOG INSULIN (NovoLOG) PER UNIT SC SCH ×4 (08:23→21:00)
[2020-07-18] MEDS: LOSARTAN 25 MG TAB PO SCH (08:23)
[2020-07-18] MEDS ORDERED: ENOXAPARIN 40MG/0.4ML SYRINGE (J1650 PER 10MG) SC SCH (09:00)
--- NOTE | 2020-07-18 15:25 | IPNPDOC ---
Text Note Date of Service The patient was seen on 07/18/20. NOTE SUBJECTIVE: She reports that she is continually feeling better from day-to-day. She still does get somewhat winded when she has to walk across the room to the bathroom. She reports that the swelling in her ankles is almost gone, but there is still some trace swelling. Otherwise, she is quite grateful for the services rendered here. REVIEW OF SYSTEMS: Neg except for what is mentioned above PHYSICAL EXAMINATION: VS: temperature 98.3, respiratory rate 18, heart rate 193382 atrial fibrillation with RVR, 77505% on 2 L NC, BP 695987/32778 CONSTITUTIONAL: comfortable resting in bed, AAO x 3 EYES: PERRLA, EOM intact HENT, MOUTH: Normocephalic, atraumatic, moist mucous membranes, NC in place NECK: SUPPLE, mildly elevated JVD, no lymphadenopathy, no carotid bruit CV: irregularly irregular rhythm, rapid. no murmurs/rubs/gallops RESPIRATORY: Clear to auscultation today, no rales/rhonchi/wheezes. GI: obese abd, BS positive in 4 quadrants, soft, nontender, nondistended, no rebound or guarding, no organomegaly : Deferred MUSCULOSKELETAL: Normal ROM. No cyanosis, clubbing, swelling, joint deformity, trace bilateral lower extremity edema INTEGUMENTARY: Intact, no rashes, no lesions, no erythema NEUROLOGIC: Cranial Nerves II-XII are intact, no focal deficits PSYCHIATRIC: Mood and affect are normal ASSESSMENT: 79-year-old female with PMH of asthma, hypertension, hyperlipidemia, diabetes mellitus, GERD, hypokalemia admitted for SOB likely 2/2 to pleural effusions, CHF, atrial fibrillation with RVR, rule out pulmonary embolus, hypertensive urgency. 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 Parker, cardiology, to see patient Atrial fibrillation with RVR, new diagnosis -Palpitations for up to 1 year, associated chest pressure intermittent with incr SOB -R/o infectious cause with BCx, UA -CTA chest to r/o PE -Echocardiogram to r/o valvular cause, etc -Rate control with BB Q6Hs, AC with enoxaparin BID therapeutic dosing while bridging to warfarin -Cardiology consulted Chest pressure -Now resolved Hypertensive urgency -BP much improved -C/w BB Q6H with holding parameters, lasix, losartan Hyperkalemia -Holding home potassium supplement and watching level with diuresis -Daily labs DM type II -Holding home PO meds -Consistent carb diet -ISS, FS AC/HS HLD -Statin Asthma -No wheezing, not suspecting exacerbation -C/w home medications/inhalers GERD -PPI DVT px -Lovenox BID DISPOSITION: Cardiology saw the patient was morning, their input is greatly appreciated. We will continue diuresis for at least 1 more night. We'll reassess in the morning. Will downgrade to [facility] floor. Patient's daughter would like updates - Nahomy Dolan [phone]. VS,Fishbone, I+O VS, Fishbone, I+O Laboratory Tests 07/18/20 06:10 Vital Signs Date Time Temp Pulse Resp B/P (MAP) Pulse Ox O2 Delivery O2 Flow Rate FiO2 07/18/20 12:43 85 129/74 07/18/20 11:22 98.0 18 97 Room Air 07/16/20 18:45 2.0 I&O- Last 24 Hours up to 6 AM 07/18/20 05:59 Intake Total 920 ml Output Total 2000 ml Balance -1080 ml TRISTIAN FAJARDO DO Jul 18, 2020 15:25
--- NOTE | 2020-07-18 17:01 | IPN ---
PROGRESS NOTE DATE: 07/18/2020 SUBJECTIVE: Mrs. Black tells me that she is feeling much better since her admission, but she is still not back to her baseline. She does feel short of breath with very mild activity, but did not have any paroxysmal nocturnal dyspnea (PND) or orthopnea. She also describes some chest discomfort when she takes a deep breath but again, much improved compared to admission. PHYSICAL EXAMINATION: VITAL SIGNS: Blood pressure 132/68, heart rate has been in the 70s and 80s, atrial fibrillation. She has been afebrile, saturation 99% on room air. Her fluid balance yesterday was recorded as negative 1300, but weight is actually up, 95.6 kg. She is alert, oriented and appropriate. Her jugular venous pressure (JVP) appears only mildly elevated. LUNGS: Sound reasonable clear with some diminished breath sounds over bases. HEART EXAM: Reveals irregular rhythm. No gallop, rub or murmur is appreciated. ABDOMEN: Obese, but soft and nontender. There is only minimal peripheral edema. LABORATORY DATA: CBC reveals hemoglobin 8.5, hematocrit 29, platelet count 216,000. Basic metabolic panel is normal. Albumin is 3.0. ASSESSMENT AND PLAN: Mrs. Black is an 79-year-old female who was admitted with atrial fibrillation with rapid ventricular response and simultaneous volume overloaded state. She is much improved with rate controlled atrial fibrillation and with modest diuresis. As far as management of atrial fibrillation is concerned, she is already rate controlled on metoprolol. As far as the anticoagulation is concerned, she tells me that her insurance does not provide coverage for any branded medication and consequently, she was starting on Coumadin. In the interim, we should continue full dose of Lovenox. She is quite anemic and iron deficient, I suspect (I am ordering iron studies) and I am also going to order stool for occult blood. In the interim, before INR becomes therapeutic, I will give her Lovenox in full therapeutic dose. I am slightly apprehensive in view of her underlying anemia, which most likely will be iron deficiency. She reported approximately two or three months ago she had single bowel movement which looked like a large amount of fresh blood, but it was only an isolated incident. She also gets frequent bleeding from her gums. Yet her last colonoscopy based on Dr. Knutson's records was in 2018 and was presumptively without significant pathology. The second issue is congestive heart failure. She appears to be much improved, but not quite euvolemic as yet. I am going to increase the dose of furosemide to 40 mg twice a day, at least for a day or two before returning back to her baseline dosing of diuretics. The third issue is chest discomfort. It does not sound anginal based on her description and she had no evidence for pulmonary embolism on CT angiography. She will need evaluation for CT on an outpatient basis, but talking to the patient, she reports that she had heart catheterization, she believes, about a couple of years ago. She apparently was supposed to follow up in our office, but she never came for the appointment. I have to verify the appointment in our office. I could not find any evidence that I saw patient based on prior records in [facility].
[2020-07-18] MEDS: WARFARIN SOD 5MG TAB PO SCH (17:22)
[2020-07-18] MEDS: SIMVASTATIN 20 MG TAB PO SCH (22:20)
[2020-07-18] MEDS: ENOXAPARIN 100MG/1ML SYRINGE (J1650 PER 10MG) SC SCH (22:21)
[2020-07-19] MEDS: METOPROLOL TART 25 MG TABLET PO SCH (05:49)
[2020-07-19] MEDS: SLF 3 ML SYR IV SCH (05:49)
[2020-07-19 06:00] VITALS: BP 147/85
[2020-07-19 06:49] LABS: PERCENT SATURATION 4.8 % (13.2-45.0)
[2020-07-19] MEDS: BUDESONIDE 0.5 MG/2 ML INHALATION SUSPENSION INH SCH (07:58)
[2020-07-19] MEDS: ENOXAPARIN 100MG/1ML SYRINGE (J1650 PER 10MG) SC SCH (08:38)
[2020-07-19] MEDS: FUROSEMIDE 40MG/4ML VIAL (J1940) IV SCH (08:39)
[2020-07-19] MEDS: HumaLOG INSULIN (NovoLOG) PER UNIT SC SCH (08:39)
[2020-07-19 08:41] VITALS: BP 147/85
[2020-07-19] MEDS: LOSARTAN 25 MG TAB PO SCH (08:41)
[2020-07-19] MEDS: OMEPRAZOLE 20 MG CAP PO SCH (08:41)
[2020-07-19] MEDS ORDERED: FERROUS GLUCONATE 324 MG TAB PO SCH (09:00)
[2020-07-19 09:53] LABS: HEMATOCRIT 30.9 % (36.0-47.0); HEMOGLOBIN 8.8 g/dl (12.0-15.5); MEAN CORPUSCULAR HEMOGLOBIN 22.5 pg (27.0-33.0); MEAN CORPUSCULAR HGB CONC 28.5 g/dl (32.0-36.5); PLATELET COUNT, AUTOMATED 250 10^3/uL (150-450); RED BLOOD COUNT 3.91 10^6/uL (4.00-5.40); WHITE BLOOD COUNT 7.6 10^3/uL (4.0-10.0)
[2020-07-19 09:57] LABS: CALCIUM LEVEL 8.2 MG/DL (8.8-10.2); CREATININE FOR GFR 1.1 MG/DL (0.55-1.30); GLOMERULAR FILTRATION RATE 50.9 (>32); POTASSIUM SERUM 3.9 MEQ/L (3.5-5.1)
[2020-07-19] MEDS ORDERED: FERR32TA PO (11:43)
[2020-07-19] MEDS ORDERED: METO50TA7 PO (11:43)
[2020-07-19] MEDS ORDERED: JANT5TAB PO (11:43)
--- NOTE | 2020-07-19 15:43 | IPN ---
PROGRESS NOTE DATE: 07/19/2020 SUBJECTIVE: Mrs. Black reported she is feeling better compared to yesterday, but still not quite back to her normal. She slept without difficulty, did not have any paroxysmal nocturnal dyspnea (PND). Denies any chest pain. Still gets short of breath with ambulation, but much improved compared to her admission state. Telemetry monitoring reveals rate controlled atrial fibrillation without significant events. PHYSICAL EXAMINATION: Vital signs this morning: Blood pressure 147/85, heart rate has been in the 70s. She has been afebrile. Saturation 96% on room air. Her fluid balance yesterday was negative 1 liter. Weight, though, is recorded at 100.1 kg, which is certainly not believable. Her jugular venous pressure (JVP) is not elevated. Lungs sound clear to me. I do not appreciate any diminished breath sounds over bases today. Heart exam reveals irregularly irregular rhythm without any obvious gallop, rub or murmur. Abdomen is obese, but soft and nontender. She has no edema. LABORATORY DATA: Basic metabolic panel is normal but for glucose 154. Iron studies reveal iron 19 with saturation 4.8% and ferritin level is 20. CBC: Hemoglobin 8.8, hematocrit 30.9 and platelet count 250,000. INR remains subtherapeutic at 1.1 after two doses of 5 mg of Coumadin two preceding nights. ASSESSMENT AND PLAN: Mrs. Black is an 79-year-old female who came in with congestive heart failure in the setting of atrial fibrillation with rapid ventricular response. She feels clinically much improved after rate control, which has been accomplished with metoprolol. She has been receiving 25 mg every 6 hours and received every dose, so I believe she can be discharged on 100 mg extended release daily. Unfortunately, her insurance does not cover branded medication and consequently, Coumadin was chosen for anticoagulation. She is subtherapeutic, but I do not believe we have to necessarily wait until INR reaches therapeutic range. I think she can be discharged home with followup INR on Monday in Dr. Knutson's office. Otherwise, in the long horizon, we will have to decide about management of atrial fibrillation depending on her clinical course after she has been anticoagulated for 3-4 weeks. We can contemplate either chemical or electrical cardioversion depending on circumstances. She also will need additional gastroenterology (GI) evaluation. The iron deficiency is very likely due to chronic mild bleeding, so I talked to her about bleeding risk. Her daughter is a nurse who works in Dr. Christie's office and consequently, the arrangement should not be complicated. I plan to see her in followup in approximately 10 days. This was discussed with Dr. Castellon. I also spoke over the phone with her daughter, Jennifer.
--- NOTE | 2020-07-19 16:54 | DS.PDOC ---
Discharge Summary General Date of Admission Jul 16, 2020 at 19:10 Date of Discharge 07/19/2020 Discharge Summary PRIMARY CARE PHYSICIAN: Dr. Malik Knutson MD ATTENDING AT TIME OF DISCHARGE: Dr. Tristian Castellon, DISCHARGE DIAGNOS(E)S: New onset atrial fibrillation with rapid ventricular response Acute decompensation of new onset congestive heart failure (unknown ejection fraction), likely secondary to A. fib with RVR Bilateral pleural effusions Hypertensive emergency Hyperkalemia Diabetes mellitus type 2 Hyperlipidemia Asthma GERD HPI & HOSPITAL COURSE: The patient went to her program support clerk office for evaluation of progressive shortness of breath. It was found that she had orthopnea, paroxysmal nocturnal dyspnea, exertional dyspnea, palpitations, and chest pressure. Upon taking her vital signs she was found to be hypoxic and in atrial fibrillation therefore she was sent directly to the emergency room. Upon arrival to the emergency department she was found to be in hypertensive urgency. She was given Lopressor IV in the ED which brought her rate down, then she was converted over to oral beta blockers, and maintained with a normal rate using metoprolol tartrate. Due to concerns for coverage by the patient's insurance that she was started on oral anticoagulation with warfarin, and was bridged using therapeutic Lovenox while in the hospital. She was diuresed during her hospitalization, with an approximate net negative of 3 L. Her breathing has now returned back to normal, she no longer has orthopnea, nor does she have any swelling in her feet or ankles. On examination today she is feeling quite, and appears stable for discharge at this time. PHYSICAL EXAMINATION ON DISCHARGE: GENERAL: Awake, alert, she is in no acute distress. CARDIOVASCULAR EXAMINATION: Irregularly irregular with variable S1 and S2, with no rubs, gallops, or murmur. RESPIRATORY EXAMINATION: Clear to auscultation bilaterally with no wheezes, rales, or rhonchi. ABDOMINAL EXAMINATION: Soft, nontender, nondistended. Bowel sounds present. EXTREMITIES: No clubbing or edema noted. 2+ pulses in the radial bilaterally. DISPOSITION: Home DISCHARGE INSTRUCTIONS: Recommend following up with her primary care physician within the next 7 days. Recommend 2 g sodium restriction diet. Activity as tolerated. If symptoms return, or if you experience worsening of your symptoms, please call your doctor or return to the emergency department. DISCHARGE MEDICATIONS: Continue taking from home: Brovana 15 MCG nebulized twice a day Budesonide 0.5 mg inhaled twice a day Furosemide 20 mg by mouth twice a day Glipizide 5 mg by mouth twice a day Losartan 50 mg by mouth daily Lovastatin 20 mg by mouth daily at bedtime Metformin 500 mg by mouth twice a day Omeprazole 20 mg by mouth daily Potassium chloride 10 mEq by mouth daily New Medications: Metoprolol titrate 50 mg by mouth twice a day Warfarin 5 mg by mouth daily Ferrous gluconate 324 mg by mouth twice a day ITEMS THAT NEED OUTPATIENT FOLLOWUP: Echocardiogram was ordered while she was an inpatient, the report for this is still pending. She was started on warfarin as anticoagulation, and metoprolol tartrate for rate control for her new onset atrial fibrillation. A paper prescription for an INR check was handed to the patient on discharge, she should get this checked on 07/21/2020. Please adjust her warfarin dosing as necessary. She does have fairly severe iron deficiency anemia, with suspicion for blood loss anemia, although FOBT was negative while inpatient. Recommend outpatient evaluation by gastroenterology for EGD and colonoscopy. She has been started on iron supplementation. Vital Signs/I&Os Vital Signs Date Time Temp Pulse Resp B/P (MAP) Pulse Ox O2 Delivery O2 Flow Rate FiO2 07/19/20 08:41 147/85 07/19/20 07:59 16 07/19/20 06:00 96.8 77 96 Room Air 07/16/20 18:45 2.0 I&O- Last 24 Hours up to 6 AM 07/19/20 05:59 Intake Total 1320 ml Output Total 2150 ml Balance -830 ml Laboratory Data Labs 24H Laboratory Tests 2 07/18/20 21:20: Bedside Glucose (Misc Panel) 228H 07/19/20 05:13: Nucleated Red Blood Cells % (auto) 0.0 07/19/20 05:17: Anion Gap 8, Glomerular Filtration Rate 50.9, Calcium Level 8.2L, Iron Level 19L, Total Iron Binding Capacity 393, Transferrin % Saturation 4.8L, Ferritin 20 07/19/20 05:47: Bedside Glucose (Misc Panel) 169H 07/19/20 11:35: Bedside Glucose (Misc Panel) 178H CBC/BMP Laboratory Tests 07/19/20 05:13 07/19/20 05:17 FSBS Laboratory Tests Test 07/18/20 21:20 07/19/20 05:47 07/19/20 11:35 Range/Units [facility]side [facility] 228 169 178 83-110 MG/DL Microbiology Microbiology 07/18/20 Urine Culture - Final, Complete 07/16/20 Blood Culture - Preliminary, Resulted No Growth after 48 hours. All Specime... 07/16/20 Blood Culture - Preliminary, Resulted No Growth after 48 hours. All Specime... Discharge Medications Scheduled Arformoterol Tartrate (Brovana) 15 Mcg/2 Ml Vial.neb, 15 MCG NEB BID, (Reported) LAST DOSE TAKEN 07/15/20 Budesonide (Budesonide) 0.5 Mg/2 Ml Ampul.neb, 0.5 MG INH BID, (Reported) LAST DOSE TAKEN 07/15/20 Ferrous Gluconate (Ferrous Gluconate) 324 Mg Tablet, 324 MG PO BID Furosemide (Furosemide) 20 Mg Tab, 20 MG PO BID, (Reported) Glipizide (Glipizide) 5 Mg Tablet, 5 MG PO BID, (Reported) Losartan Potassium (Losartan Potassium) 50 Mg Tablet, 50 MG PO DAILY, (Reported) Lovastatin (Lovastatin) 20 Mg Tab, 20 MG PO QHS, (Reported) Metformin HCl (Metformin HCl) 500 Mg Tab, 500 MG PO BID, (Reported) Metoprolol Tartrate (Metoprolol Tartrate) 50 Mg Tablet, 50 MG PO BID Omeprazole (Omeprazole) 20 Mg Cap, 20 MG PO DAILY, (Reported) Potassium Chloride (Potassium Chloride) 10 Meq Cap, 10 MEQ PO DAILY, (Reported) Warfarin Sodium (Jantoven) 5 Mg Tablet, 5 MG PO DAILY@17 Allergies Coded Allergies: Penicillins (Verified Allergy, Unknown, 07/16/20) TRISTIAN CASTELLON DO Jul 19, 2020 16:54
--- NOTE | 2020-07-20 09:42 | ECHO ---
DATE OF PROCEDURE: 07/17/2020 Age: 79 Gender: Female REFERRING PROVIDER: Dr. Brenda Mcleod PATIENT LOCATION: Room 3218 REASON FOR STUDY: Congestive heart failure, newly diagnosed atrial fibrillation. 2D MEASUREMENTS: IVS 1.0 cm LV 4.0 cm LVPW 1.0 cm LA 3.2 cm Aorta 2.7 cm IVC 1.9 cm DOPPLER MEASUREMENT Peak velocity across the aortic valve 1.4 m/s Peak velocity across the LVOT 0.82 m/s Mitral E 1.1 Maximum tricuspid valve velocity 3.0 m/s 2D COMMENTS: 1. Normal left ventricular size, wall thickness, and normal global left ventricular systolic function. The estimated left ventricular systolic ejection fraction is 55% to 65%. 2. Subjectively, the left atrium appeared to be mildly enlarged. Mildly dilated right atrium. The right ventricle was not well-visualized, but appeared to be mildly enlarged. 3. The atrial septum appeared to be normal without evidence of defect or shunt. 4. Normal aortic root. 5. Trace pericardial effusion noted, no evidence of cardiac tamponade. A left pleural effusion was noted. 6. Mildly calcified aortic valve with normal leaflet excursion. Mildly calcified mitral annulus with normal anterior mitral valve leaflet motion. Normal tricuspid valve and pulmonic valve. The proximal pulmonary artery branches were not well visualized. 7. The inferior vena cava is mildly enlarged, central venous pressure is mildly elevated. 8. Doppler detects moderate mitral regurgitation, [id number] tricuspid regurgitation, trace pulmonic regurgitation. The calculated pulmonary artery systolic pressure was between 40 to 50 mmHg. Assessment of the left ventricular diastolic function was limited in view of the underlying atrial fibrillation. IMPRESSION: 1. Normal global left ventricular systolic function. Assessment of the left ventriculare diastolic function was limited. 2. Aortic valve sclerosis without stenosis or aortic regurgitation. 3. Moderate mitral regurgitation. Subjectively, the left atrium is mildly enlarged. 4. [id number] tricuspid regurgitation with moderate pulmonary hypertension and dilated right atrium. 5. Trace pericardial effusion, no evidence of cardiac tamponade. Pleural effusion also noted. MTDD
== END 2020-07-19 13:04 | disposition home or self-care (01) | DRG 293 ==
LOC: M ED 15:39 → M ED INP 19:10 → ENRESERV 19:29 → M PCU 21:00 → M MSPAV 07-18 16:09
PROVIDERS: ADMIT Internal Medicine; ATTEND Neuromusculoskeletal Medicine & OMM
DX: I11.0 Hypertensive heart disease with heart failure (principal); I50.9 Heart failure, unspecified; I48.91 Unspecified atrial fibrillation; E78.5 Hyperlipidemia, unspecified; J45.909 Unspecified asthma, uncomplicated; E11.9 Type 2 diabetes mellitus without complications; K21.9 Gastro-esophageal reflux disease without esophagitis; E87.5 Hyperkalemia; D50.0 Iron deficiency anemia secondary to blood loss (chronic); I16.0 Hypertensive urgency; R09.02 Hypoxemia; Z87.891 Personal history of nicotine dependence; Z20.822 Contact with and (suspected) exposure to COVID-19; Z79.84 Long term (current) use of oral hypoglycemic drugs; Z79.899 Other long term (current) drug therapy; Z88.0 Allergy status to penicillin

== ENCOUNTER → 2020-07-21 | Outpatient (REF) | payer MEDICARE, OTHER ==
[~2020-07-21] MED LIST changes: +BROV15NE NEB; +BUDE0.5S6 INH; +FERR32TA PO; +GLIP5TAB8 PO; +JANT5TAB PO; +LOSA50TA88 PO; +METO50TA7 PO
[2020-07-21 12:24] LABS: INR 1.42; PROTHROMBIN TIME 17.6 SECONDS (12.5-14.3)
== END ==
LOC: M LABDRAWC 11:03
PROVIDERS: ATTEND Neuromusculoskeletal Medicine & OMM
DX: Z51.81 Encounter for therapeutic drug level monitoring (principal); Z79.01 Long term (current) use of anticoagulants; I48.91 Unspecified atrial fibrillation

== ENCOUNTER → 2020-08-21 | Outpatient (REF) | payer MEDICARE, OTHER ==
[2020-08-21 17:27] LABS: HEMATOCRIT 40.4 % (36.0-47.0); HEMOGLOBIN 11.9 g/dl (12.0-15.5); MEAN CORPUSCULAR HEMOGLOBIN 24.8 pg (27.0-33.0); MEAN CORPUSCULAR HGB CONC 29.5 g/dl (32.0-36.5); MEAN CORPUSCULAR VOLUME 84.2 fl (80.0-96.0); PLATELET COUNT, AUTOMATED 146 10^3/uL (150-450)
[2020-08-21 17:47] LABS: CALCIUM LEVEL 8.6 MG/DL (8.8-10.2); CREATININE FOR GFR 0.97 MG/DL (0.55-1.30); GLOMERULAR FILTRATION RATE 58.8 (>32); PERCENT SATURATION 17.4 % (13.2-45.0)
== END ==
LOC: M SFHCCLAY 09:34
PROVIDERS: ATTEND Family Medicine
DX: D50.9 Iron deficiency anemia, unspecified (principal); E11.9 Type 2 diabetes mellitus without complications

== ENCOUNTER → 2020-08-21 | Outpatient (CLI) | payer MEDICARE, OTHER ==
--- NOTE | 2020-08-21 10:42 | REP ---
INDICATION: E11.9, I48.91 COMPARISON: 07/16/2020 as well as other prior exams. TECHNIQUE: PA/Lateral FINDINGS: Lungs: Clear, no infiltrate. Heart: Normal in size. Mediastinum: There is mild calcification of the thoracic aorta. The mediastinal silhouette is unchanged. Pleural angles: There is mild chronic biapical pleural thickening.. Bones and soft tissues: There are degenerative changes of the spine without compression deformity. IMPRESSION: No acute pulmonary disease. <Electronically signed by Luis Felton > 08/21/20 [id number]
== END ==
LOC: M CLY 10:06
PROVIDERS: ATTEND Family Medicine
DX: I48.91 Unspecified atrial fibrillation (principal); E11.9 Type 2 diabetes mellitus without complications; D50.9 Iron deficiency anemia, unspecified
CPT/HCPCS: 71046; 80048; 83550; 85027; G0463

== ENCOUNTER → 2020-10-29 | Outpatient (REF) | payer MEDICARE, OTHER ==
[~2020-10-29] MED LIST changes: +ETOD-173 PO; -ETOD400T PO
[2020-10-29 12:03] LABS: HEMATOCRIT 42.2 % (36.0-47.0); HEMOGLOBIN 13.5 g/dl (12.0-15.5); MEAN CORPUSCULAR VOLUME 90.8 fl (80.0-96.0); PLATELET COUNT, AUTOMATED 185 10^3/uL (150-450); RED BLOOD COUNT 4.65 10^6/uL (4.00-5.40); WHITE BLOOD COUNT 6.2 10^3/uL (4.0-10.0)
[2020-10-29 13:15] LABS: CALCIUM LEVEL 8.7 MG/DL (8.8-10.2); CREATININE FOR GFR 1.16 MG/DL (0.55-1.30); GLOMERULAR FILTRATION RATE 47.7 (>32); POTASSIUM SERUM 4.7 MEQ/L (3.5-5.1)
== END ==
LOC: M SFHCCLAY 07:59
PROVIDERS: ATTEND Family Medicine
DX: I48.91 Unspecified atrial fibrillation (principal)

== ENCOUNTER → 2020-11-26 | Outpatient (REF) | payer MEDICARE, OTHER ==
[~2020-11-26] MED LIST changes: +ONDA4TAB6 PO
[2020-11-27 12:17] LABS: HEMOGLOBIN A1c 7.9 %
== END ==
LOC: M SFHCCLAY 15:41
PROVIDERS: ATTEND Family Medicine
DX: E11.9 Type 2 diabetes mellitus without complications (principal)

== ENCOUNTER → 2020-11-26 | Outpatient (CLI) | payer MEDICARE, OTHER | LOC: M LABSMTC 10:58 | PROVIDERS: ATTEND Anesthesiology | DX: Z01.812 Encounter for preprocedural laboratory examination (principal); Z20.822 Contact with and (suspected) exposure to COVID-19; I48.91 Unspecified atrial fibrillation; Z79.01 Long term (current) use of anticoagulants | CPT/HCPCS: 85610; G0463; U0003 ==

== ENCOUNTER 2020-12-01 07:25 | Day surgery (SDC) | payer MEDICARE ==
[~2020-12-01] VITALS: Ht 165.1 cm; Wt 88.5 kg
[~2020-12-01 07:25] MED LIST changes: +LIDOCAINE 2% 100MG/5ML SDV (FOR ANES.) As Ordered ONE; +NS 1,000 ML IV ONE; +fentaNYL 100 MCG/2 ML INJECTION (J3010) As Ordered ONE; +propofoL 200 MG/20 ML VIAL As Ordered ONE
--- NOTE | 2020-12-01 09:22 | ROOR ---
Patient Name: Nichole Black Procedure Date: 12/01/2020 8:02 AM Date of : 1940 Age: 80 Room: [facility] Gender: Female Note Status: Finalized Procedure: Upper GI endoscopy Indications: Iron deficiency anemia, Oropharyngeal phase dysphagia, Dysphagia Providers: Bryan Christie MD Referring MD: Malik Knutson MD Requesting Provider: Medicines: Monitored Anesthesia Care Complications: No immediate complications. Procedure: Pre-Anesthesia Assessment: - The heart rate, respiratory rate, oxygen saturations, blood pressure, adequacy of pulmonary ventilation, and response to care were monitored throughout the procedure. The Endoscope was introduced through the mouth, and advanced to the second part of duodenum. The upper GI endoscopy was accomplished without difficulty. The patient tolerated the procedure well. Findings: A web was found at the cricopharyngeus. The scope was withdrawn. Dilation was performed with a Disla dilator with mild resistance at 54 Fr. A low-grade of narrowing Schatzki ring was found at the gastroesophageal junction. A TTS dilator was passed through the scope. Dilation with a 15-16.5-18 mm balloon dilator was performed to 18 mm. A medium-sized hiatal hernia was present. Moderate gastric antral vascular ectasia was present in the gastric body and in the gastric antrum. Coagulation for hemostasis using argon plasma at 0.8 liters/minute and 20 glasgow was successful. The examined duodenum was normal. Biopsies were taken with a cold forceps for histology. 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 Dilated. - Low-grade of narrowing Schatzki ring. Dilated. - Medium-sized hiatal hernia. - Gastric antral vascular ectasia. Treated with argon plasma coagulation (APC). - Normal examined duodenum. Biopsied. Recommendation: - Repeat upper endoscopy in 1 month for retreatment. - Use Prilosec (omeprazole) 20 mg PO BID. - Use sucralfate tablets 1 gram PO QID for 2 weeks. - (the script was sent to your pharmacy on file) - Resume Coumadin (warfarin) at prior dose tomorrow. Procedure Code(s): --- Professional --- 84814, 59, Esophagogastroduodenoscopy, flexible, transoral; with control of bleeding, any method 60356, Esophagogastroduodenoscopy, flexible, transoral; with transendoscopic balloon dilation of esophagus (less than 30 mm diameter) 66429, 59, Esophagogastroduodenoscopy, flexible, transoral; with biopsy, single or multiple Diagnosis Code(s): --- Professional --- R13.12, Dysphagia, oropharyngeal phase D50.9, Iron deficiency anemia, unspecified K31.819, Angiodysplasia of stomach and duodenum without bleeding K44.9, Diaphragmatic hernia without obstruction or gangrene K22.2, Esophageal obstruction Q39.4, Esophageal web CPT copyright 2019 [employer]. All rights reserved. The codes documented in this report are preliminary and upon metal machine setter review may be revised to meet current compliance requirements. Bryan Christie MD Bryan Christie MD 12/01/2020 9:22:42 AM Electronically signed by Bryan Christie MD Number of Addenda: 0 Note Initiated On: 12/01/2020 8:02 AM Estimated Blood Loss: Estimated blood loss: none.
--- NOTE | 2020-12-01 09:48 | ROOR ---
Patient Name: Nichole Black Procedure Date: 12/01/2020 8:52 AM Date of : 1940 Age: 80 Room: [facility] Gender: Female Note Status: Finalized Procedure: Colonoscopy Indications: Iron deficiency anemia Providers: Bryan Christie MD Referring MD: Malik Knutson MD Requesting Provider: Medicines: Monitored Anesthesia Care Complications: No immediate complications. Procedure: Pre-Anesthesia Assessment: - The heart rate, respiratory rate, oxygen saturations, blood pressure, adequacy of pulmonary ventilation, and response to care were monitored throughout the procedure. The Colonoscope was introduced through the anus and advanced to the cecum, identified by appendiceal orifice and ileocecal valve. The colonoscopy was technically difficult and complex due to multiple diverticula in the colon. The patient tolerated the procedure well. The quality of the bowel preparation was good. Findings: The perianal and digital rectal examinations were normal. A 4 mm polyp was found in the ascending colon. The polyp was sessile. The polyp was removed with a cold snare. Resection and retrieval were complete. The ileocecal valve was moderately lipomatous. Biopsies were taken with a cold forceps for histology. Many medium-mouthed diverticula were found in the sigmoid colon and descending colon. There was narrowing of the colon in association with the diverticular opening. Internal hemorrhoids were found during retroflexion. The hemorrhoids were medium-sized. The exam was otherwise without abnormality on direct and retroflexion views. Impression: - One 4 mm polyp in the ascending colon, removed with a cold snare. Resected and retrieved. - Lipomatous ileocecal valve. Biopsied. - Moderate diverticulosis in the sigmoid colon and in the descending colon. There was moderate narrowing/myomatous hypertrophy of the sigmoid colon in association with the diverticular opening. - Internal hemorrhoids. - The examination was otherwise normal on direct and retroflexion views. Recommendation: - Await pathology results. - Telephone endoscopist for pathology results in 2 weeks. - Use fiber, for example Citrucel, Fibercon, Konsyl or Metamucil. - Miralax 1 capful (17 grams) in 8 ounces of water PO daily. Procedure Code(s): --- Professional --- 32708, Colonoscopy, flexible; with removal of tumor(s), polyp(s), or other lesion(s) by snare technique 05756, 59, Colonoscopy, flexible; with biopsy, single or multiple Diagnosis Code(s): --- Professional --- K57.30, Diverticulosis of large intestine without perforation or abscess without bleeding D50.9, Iron deficiency anemia, unspecified K64.8, Other hemorrhoids K63.89, Other specified diseases of intestine K63.5, Polyp of colon CPT copyright 2019 [employer]. All rights reserved. The codes documented in this report are preliminary and upon epic willow specialist review may be revised to meet current compliance requirements. Bryan Christie MD Bryan Christie MD 12/01/2020 9:48:35 AM Electronically signed by Bryan Christie MD Number of Addenda: 0 Note Initiated On: 12/01/2020 8:52 AM Estimated Blood Loss: Estimated blood loss: none.
[2020-12-01 10:15] VITALS: BP 160/92
== END 2020-12-01 10:29 | disposition home or self-care (01) ==
LOC: M OPP 07:25
PROVIDERS: ATTEND Internal Medicine Gastroenterology
DX: K57.30 Diverticulosis of large intestine without perforation or abscess without bleeding (principal); K64.8 Other hemorrhoids; K63.89 Other specified diseases of intestine; D50.9 Iron deficiency anemia, unspecified; K44.9 Diaphragmatic hernia without obstruction or gangrene; K22.2 Esophageal obstruction; K31.819 Angiodysplasia of stomach and duodenum without bleeding; R13.12 Dysphagia, oropharyngeal phase; Q39.4 Esophageal web; Z79.84 Long term (current) use of oral hypoglycemic drugs; Z79.899 Other long term (current) drug therapy; Z88.0 Allergy status to penicillin; Z91.018 Allergy to other foods; Z80.3 Family history of malignant neoplasm of breast; Z80.6 Family history of leukemia; Z80.49 Family history of malignant neoplasm of other genital organs
CPT/HCPCS: 43239; 43249; 43255; 45380; 45385; 88305; J3010

== ENCOUNTER → 2020-12-30 | Outpatient (CLI) | payer MEDICARE, OTHER ==
[~2020-12-30] MED LIST changes: -LIDOCAINE 2% 100MG/5ML SDV (FOR ANES.) As Ordered ONE; -NS 1,000 ML IV ONE; -fentaNYL 100 MCG/2 ML INJECTION (J3010) As Ordered ONE; -propofoL 200 MG/20 ML VIAL As Ordered ONE
--- NOTE | 2020-12-30 15:45 | REP ---
INDICATION: INJURY OF RIGHT LOWER EXTREMITY. COMPARISON: None. TECHNIQUE: AP and lateral views FINDINGS: Chronic changes are seen at the level of the knee and the ankle. There is no evidence of an acute fracture or destructive osseous lesion. IMPRESSION: Chronic degenerative changes are present. If the patient has isolated knee or ankle pain consider full knee and or ankle series of clinically relevant. <Electronically signed by Urban Cui > 12/30/20 [id number]
== END ==
LOC: M CLY 15:16
PROVIDERS: ATTEND Physician Assistant
DX: S89.91XA Unspecified injury of right lower leg, initial encounter (principal); Y92.9 Unspecified place or not applicable; Y93.9 Activity, unspecified; Y99.9 Unspecified external cause status
CPT/HCPCS: 73590; G0463

== ENCOUNTER → 2021-01-07 | Outpatient (CLI) | payer MEDICARE, OTHER | LOC: M LABSMTC 09:11 | PROVIDERS: ATTEND Anesthesiology | DX: Z01.812 Encounter for preprocedural laboratory examination (principal); Z20.822 Contact with and (suspected) exposure to COVID-19 ==

== ENCOUNTER 2021-01-12 06:45 | Day surgery (SDC) | payer MEDICARE, OTHER ==
[~2021-01-12] VITALS: Ht 162.6 cm; Wt 89.4 kg
[~2021-01-12 06:45] MED LIST changes: +NS 1,000 ML IV ONE
[2021-01-12] MEDS ORDERED: LIDOCAINE 2% 100MG/5ML SDV (FOR ANES.) As Ordered ONE (07:17)
[2021-01-12] MEDS ORDERED: propofoL 200 MG/20 ML VIAL As Ordered ONE (07:17)
[2021-01-12] MEDS ORDERED: fentaNYL 100 MCG/2 ML INJECTION (J3010) As Ordered ONE (07:18)
--- NOTE | 2021-01-12 08:02 | ROOR ---
Patient Name: Nichole Black Procedure Date: 01/12/2021 7:38 AM Date of : 1940 Age: 80 Room: [id number] Gender: Female Note Status: Finalized Procedure: Upper GI endoscopy Indications: Surveillance procedure, Iron deficiency anemia, Watermelon stomach (GAVE syndrome) Providers: Bryan Christie MD Referring MD: Malik Knutson MD Requesting Provider: Medicines: Monitored Anesthesia Care Complications: No immediate complications. Procedure: Pre-Anesthesia Assessment: - The heart rate, respiratory rate, oxygen saturations, blood pressure, adequacy of pulmonary ventilation, and response to care were monitored throughout the procedure. The Endoscope was introduced through the mouth, and advanced to the second part of duodenum. The upper GI endoscopy was accomplished without difficulty. The patient tolerated the procedure well. Findings: The examined esophagus was normal. A widely patent Schatzki ring was found in the distal esophagus. A medium-sized hiatal hernia was present. The entire examined stomach was normal. The examined duodenum was normal. There is no endoscopic evidence of gastric antral vascular ectasia in the entire examined stomach. Impression: - Normal esophagus with a slight residual Schatzki ring (widely patent). - Medium-sized hiatal hernia. - Normal stomach. (GAVE is resolved) - Normal examined duodenum. - No specimens collected. Recommendation: - Observe patient's clinical course. - Continue present medications. - Resume Coumadin (warfarin) at prior dose today. Procedure Code(s): --- Professional --- 20469, Esophagogastroduodenoscopy, flexible, transoral; diagnostic, including collection of specimen(s) by brushing or washing, when performed (separate procedure) Diagnosis Code(s): --- Professional --- K31.819, Angiodysplasia of stomach and duodenum without bleeding D50.9, Iron deficiency anemia, unspecified K44.9, Diaphragmatic hernia without obstruction or gangrene K22.2, Esophageal obstruction CPT copyright 2019 [employer]. All rights reserved. The codes documented in this report are preliminary and upon recycling assistant review may be revised to meet current compliance requirements. Bryan Christie MD Bryan Christie MD 01/12/2021 8:02:01 AM Electronically signed by Bryan Christie MD Number of Addenda: 0 Note Initiated On: 01/12/2021 7:38 AM Estimated Blood Loss: Estimated blood loss: none.
[2021-01-12 08:28] VITALS: BP 124/62
== END 2021-01-12 08:28 | disposition home or self-care (01) ==
LOC: M OPP 06:45
PROVIDERS: ATTEND Internal Medicine Gastroenterology
DX: K22.2 Esophageal obstruction (principal); K31.819 Angiodysplasia of stomach and duodenum without bleeding; K44.9 Diaphragmatic hernia without obstruction or gangrene; D50.9 Iron deficiency anemia, unspecified; Z79.01 Long term (current) use of anticoagulants; Z79.84 Long term (current) use of oral hypoglycemic drugs; Z79.899 Other long term (current) drug therapy; Z88.0 Allergy status to penicillin; Z91.018 Allergy to other foods
CPT/HCPCS: 43235; J3010

== ENCOUNTER → 2021-01-15 | Outpatient (CLI) | payer MEDICARE ==
[~2021-01-15] MED LIST changes: -NS 1,000 ML IV ONE
--- NOTE | 2021-01-15 13:09 | REP ---
INDICATION: M79.671, RIGHT FOOT PAIN. COMPARISON: None TECHNIQUE: Four views FINDINGS: Plantar and retrocalcaneal heel spurs are present. Mild to moderate degenerative changes are seen throughout the foot. There is a type 1 os naviculare. There is no acute fracture. IMPRESSION: No acute abnormality <Electronically signed by Urban Cui > 01/15/21 [id number]
--- NOTE | 2021-01-15 13:16 | REP ---
INDICATION: M25.571, ACUTE RIGHT ANKLE PAIN. COMPARISON: None. TECHNIQUE: Four views FINDINGS: No acute fracture or destructive osseous lesion. The mortise is intact. Plantar and retrocalcaneal heel spurs are noted. Multiple smoothly marginated well corticated ossific densities are seen distal to the tip of the medial malleolus. These represent chronic changes. IMPRESSION: No acute osseous abnormality. Findings as described above. <Electronically signed by Urban Cui > 01/15/21 [id number]
== END ==
LOC: M CLY 11:21
PROVIDERS: ATTEND Physician Assistant
DX: M25.571 Pain in right ankle and joints of right foot (principal); M79.671 Pain in right foot; M77.31 Calcaneal spur, right foot

== ENCOUNTER → 2021-02-24 | Outpatient (REF) | payer MEDICARE, OTHER ==
[2021-02-24 12:02] LABS: HEMATOCRIT 44.1 % (36.0-47.0); HEMOGLOBIN 14.1 g/dl (12.0-15.5); MEAN CORPUSCULAR HEMOGLOBIN 31.1 pg (27.0-33.0); MEAN CORPUSCULAR VOLUME 97.1 fl (80.0-96.0); PLATELET COUNT, AUTOMATED 213 10^3/uL (150-450); RED BLOOD COUNT 4.54 10^6/uL (4.00-5.40)
[2021-02-24 12:08] LABS: CREATININE FOR GFR 1.17 MG/DL (0.55-1.30); GLOMERULAR FILTRATION RATE 47.3 (>32); POTASSIUM SERUM 5.1 MEQ/L (3.5-5.1)
[2021-02-24 12:30] LABS: HEMOGLOBIN A1c 6.7 %
== END ==
LOC: M SFHCCLAY 08:53
PROVIDERS: ATTEND Family Medicine
DX: I48.91 Unspecified atrial fibrillation (principal); E11.9 Type 2 diabetes mellitus without complications
CPT/HCPCS: 80048; 83036; 85027; G0463

== ENCOUNTER → 2021-06-23 | Outpatient (REF) | payer MEDICARE, OTHER ==
[~2021-06-23] MED LIST changes: +LOSA25TA13 PO; -LOSA25TA14 PO; +LOSA50TA28 PO; -LOSA50TA88 PO
[2021-06-23 12:02] LABS: HEMATOCRIT 41.6 % (36.0-47.0); HEMOGLOBIN 13.2 g/dl (12.0-15.5); MEAN CORPUSCULAR HEMOGLOBIN 30.6 pg (27.0-33.0); MEAN CORPUSCULAR HGB CONC 31.7 g/dl (32.0-36.5); MEAN CORPUSCULAR VOLUME 96.3 fl (80.0-96.0); PLATELET COUNT, AUTOMATED 185 10^3/uL (150-450); RED BLOOD COUNT 4.32 10^6/uL (4.00-5.40); WHITE BLOOD COUNT 7.7 10^3/uL (4.0-10.0)
[2021-06-23 12:14] LABS: APPEARANCE, URINE HAZY (CLEAR); BACTERIA, URINE AUTO NEGATIVE (NEGATIVE); BILIRUBIN, URINE AUTO NEGATIVE (NEGATIVE); BLOOD, URINE BLOOD NEGATIVE (NEGATIVE); COLOR, URINE YELLOW (YELLOW); GLUCOSE, URINE (UA) AUTO NEGATIVE (NEGATIVE); KETONE, URINE AUTO NEGATIVE (NEGATIVE); LEUKOCYTE ESTERASE, URINE AUTO 1+ (NEGATIVE); MUCUS, URINE SMALL (NEGATIVE); NITRITE, URINE AUTO NEGATIVE (NEGATIVE); PROTEIN, URINE AUTO 1+ mg/dL (NEGATIVE); RBC, URINE AUTO 0 /HPF (0-3); SPECIFIC GRAVITY URINE AUTO 1.016 (1.002-1.035); SQUAMOUS EPITHELIAL CELL UR AU 1 /HPF (0-6); UROBILINOGEN, URINE AUTO 0.2 mg/dL (0.0-2.0); WBC, URINE AUTO 9 /HPF (0-3)
[2021-06-23 12:29] LABS: ALBUMIN 3.3 GM/DL (3.2-5.2); BILIRUBIN,TOTAL 0.6 MG/DL (0.2-1.0); CALCIUM LEVEL 8.3 MG/DL (8.8-10.2); CHOLESTEROL RISK RATIO 3.736 (<5); CREATININE FOR GFR 1.02 MG/DL (0.55-1.30); GLOMERULAR FILTRATION RATE 55.4 (>32); POTASSIUM SERUM 4.6 MEQ/L (3.5-5.1); TOTAL PROTEIN 6.5 GM/DL (6.4-8.2)
[2021-06-23 12:35] LABS: MAU/CREAT RATIO 141.4 MCG/MG (0.0-30.0)
[2021-06-23 12:45] LABS: HEMOGLOBIN A1c 7.4 %
== END ==
LOC: M SFHCCLAY 09:05
PROVIDERS: ATTEND Family Medicine
DX: J44.9 Chronic obstructive pulmonary disease, unspecified (principal); I10 Essential (primary) hypertension; E11.9 Type 2 diabetes mellitus without complications

== ENCOUNTER → 2021-10-28 | Outpatient (REF) | payer MEDICARE, OTHER ==
[~2021-10-28] MED LIST changes: -TRIA37.53 PO; +TRIA37.577 PO
[2021-10-28 16:51] LABS: CALCIUM LEVEL 9.4 MG/DL (8.8-10.2); CHOLESTEROL RISK RATIO 3.756 (<5); CREATININE FOR GFR 1.14 MG/DL (0.55-1.30); GLOMERULAR FILTRATION RATE 48.6 (>32); POTASSIUM SERUM 4.8 MEQ/L (3.5-5.1)
[2021-10-28 18:18] LABS: HEMOGLOBIN A1c 6.9 %
== END ==
LOC: M SFHCCLAY 11:26
PROVIDERS: ATTEND Family Medicine
DX: J44.9 Chronic obstructive pulmonary disease, unspecified (principal); I10 Essential (primary) hypertension; E11.9 Type 2 diabetes mellitus without complications; J45.20 Mild intermittent asthma, uncomplicated

== ENCOUNTER → 2022-02-14 | Outpatient (REF) | payer MEDICARE, OTHER ==
[2022-02-14 12:49] LABS: HEMOGLOBIN A1c 7.3 %
[2022-02-14 13:03] LABS: ALBUMIN 3.3 GM/DL (3.2-5.2); BILIRUBIN,TOTAL 0.4 MG/DL (0.2-1.0); CALCIUM LEVEL 9.3 MG/DL (8.8-10.2); CREATININE FOR GFR 1.14 MG/DL (0.55-1.30); FREE T4 1.03 NG/DL (0.76-1.46); GLOMERULAR FILTRATION RATE 48.6 (>32); POTASSIUM SERUM 5.5 MEQ/L (3.5-5.1); THYROID STIMULATING HORMONE 2.56 uIU/ML (0.358-3.740); TOTAL PROTEIN 6.5 GM/DL (6.4-8.2)
[2022-02-14 13:04] LABS: MALB URINE SIEMENS 96.6 MG/L
== END ==
LOC: M SFHCCLAY 06:53
PROVIDERS: ATTEND Family Medicine
DX: I10 Essential (primary) hypertension (principal); E11.9 Type 2 diabetes mellitus without complications; J44.9 Chronic obstructive pulmonary disease, unspecified; R41.89 Other symptoms and signs involving cognitive functions and awareness; J45.20 Mild intermittent asthma, uncomplicated

== ENCOUNTER → 2022-05-16 | Outpatient (REF) | payer MEDICARE, OTHER ==
[~2022-05-16] MED LIST changes: -POTA10CA32 PO; +POTA10CA33 PO
== END ==
LOC: M SFHCDERM 14:11
PROVIDERS: ATTEND Physician Assistant
DX: L85.8 Other specified epidermal thickening (principal)

== ENCOUNTER → 2022-05-18 | Outpatient (REF) | payer MEDICARE, OTHER ==
[2022-05-18 12:09] LABS: CALCIUM LEVEL 8.9 MG/DL (8.3-10.6); CREATININE FOR GFR 1.31 MG/DL (0.55-1.30); GLOMERULAR FILTRATION RATE 41.4 (>32); POTASSIUM SERUM 4.1 MMOL/L (3.5-5.1)
[2022-05-18 12:23] LABS: HEMOGLOBIN A1c 7.2 % (4.0-6.0)
[2022-05-18 12:49] LABS: CREATININE, URINE 189.4 MG/DL; MAU/CREAT RATIO 6.8 MCG/MG (0.0-30.0)
== END ==
LOC: M SFHCCLAY 06:53
PROVIDERS: ATTEND Family Medicine
DX: E11.22 Type 2 diabetes mellitus with diabetic chronic kidney disease (principal); N18.30 Chronic kidney disease, stage 3 unspecified; J44.9 Chronic obstructive pulmonary disease, unspecified; I48.91 Unspecified atrial fibrillation

== ENCOUNTER → 2022-05-23 | Outpatient (CLI) | payer MEDICARE, OTHER | LOC: M CLY 13:01 | PROVIDERS: ATTEND Family Medicine | DX: M70.61 Trochanteric bursitis, right hip (principal) ==

== ENCOUNTER → 2022-07-13 | Outpatient (REF) | payer MEDICARE, OTHER | LOC: M SFHCDERM 17:49 | PROVIDERS: ATTEND Dermatology | DX: C44.729 Squamous cell carcinoma of skin of left lower limb, including hip (principal); L85.8 Other specified epidermal thickening; D48.9 Neoplasm of uncertain behavior, unspecified ==

== ENCOUNTER → 2022-08-16 | Outpatient (REF) | payer MEDICARE, OTHER | LOC: M SFHCDERM 14:30 | PROVIDERS: ATTEND Dermatology | DX: Z48.02 Encounter for removal of sutures (principal) ==

== ENCOUNTER → 2022-08-29 | Outpatient (REF) | payer MEDICARE ==
[2022-08-29 12:04] LABS: CALCIUM LEVEL 8.9 MG/DL (8.3-10.6); CREATININE FOR GFR 1.3 MG/DL (0.55-1.30); GLOMERULAR FILTRATION RATE 41.7 (>32); POTASSIUM SERUM 5.2 MMOL/L (3.5-5.1)
[2022-08-29 12:05] LABS: CREATININE, URINE 56.5 MG/DL; MAU/CREAT RATIO 12.3 MCG/MG (0.0-30.0)
== END ==
LOC: M SFHCCLAY 06:43
PROVIDERS: ATTEND Family Medicine
DX: N18.30 Chronic kidney disease, stage 3 unspecified (principal); E11.9 Type 2 diabetes mellitus without complications; M70.61 Trochanteric bursitis, right hip

== ENCOUNTER → 2022-08-30 | Outpatient (REF) | payer MEDICARE ==
[2022-08-30 13:16] LABS: INR 4.11; PROTHROMBIN TIME 40.4 SECONDS (12.5-14.5)
== END ==
LOC: M SFHCCLAY 11:57
PROVIDERS: ATTEND Family Medicine
DX: Z51.81 Encounter for therapeutic drug level monitoring (principal); Z79.01 Long term (current) use of anticoagulants

== ENCOUNTER 2022-10-13 11:51 | Inpatient (IN) | payer MEDICARE, MEDICAID ==
[~2022-10-13] VITALS: Ht 167.6 cm; Wt 79.4 kg
[~2022-10-13 11:51] MED LIST changes: +FLUCONAZOLE 50MG TABLET PO SCH; -POTA10CA33 PO; +POTA10CA60 PO
[2022-10-13] MEDS ORDERED: METOPROLOL TART 50 MG TAB PO ONE (12:15)
[2022-10-13] MEDS ORDERED: PANTOPRAZOLE 40MG VIAL IV ONE (12:15)
[2022-10-13 12:50] LABS: BASO # 0.1 10^3/uL (0.0-0.2); BASO % 0.5 % (0.0-1.0); EOS # 0.1 10^3/uL (0.0-0.5); EOS % 0.5 % (0.0-3.0); HEMATOCRIT 44.4 % (36.0-47.0); HEMOGLOBIN 14.3 g/dl (12.0-15.5); LYMPH # 1.2 10^3/uL (1.5-5.0); LYMPH % 9.5 % (24.0-44.0); MEAN CORPUSCULAR HEMOGLOBIN 30.8 pg (27.0-33.0); MEAN CORPUSCULAR HGB CONC 32.2 g/dl (32.0-36.5); MEAN CORPUSCULAR VOLUME 95.5 fl (80.0-96.0); MONO # 0.8 10^3/uL (0.0-0.8); MONO % 6.5 % (2.0-8.0); NEUTROPHILS # 10.3 10^3/uL (1.5-8.5); PLATELET COUNT, AUTOMATED 296 10^3/uL (150-450); RED BLOOD COUNT 4.65 10^6/uL (4.00-5.40); WHITE BLOOD COUNT 12.6 10^3/uL (4.0-10.0)
[2022-10-13] MEDS ORDERED: MORPHINE 4 MG/ML 1ML VIAL IV PRN (13:00)
[2022-10-13] MEDS ORDERED: ONDANSETRON 4MG 2ML VIAL IV ONE (13:00)
[2022-10-13] MEDS ORDERED: NS 1,000 ML IV SCH (13:05)
[2022-10-13 13:19] LABS: LIPASE 30 U/L (12-53)
[2022-10-13 13:21] LABS: ALBUMIN 2.7 G/DL (3.2-5.2); ALKALINE PHOSPHATASE 81 U/L (46-116); ALT/SGPT 16 U/L (7.0-40); AST/SGOT 13 U/L (<34); BILIRUBIN,DIRECT 0.2 MG/DL (<0.4); BILIRUBIN,TOTAL 0.4 MG/DL (0.3-1.2); BLOOD UREA NITROGEN 26 MG/DL (9-23); CARBON DIOXIDE LEVEL 22 MMOL/L (20-31); CHLORIDE LEVEL 104 MMOL/L (98-107); CK-MB VALUE MASS < 1.0 NG/ML (<3.6); CPK CREATINE PHOSPHOKINASE 27 U/L (34-145); CREATININE FOR GFR 1.19 MG/DL (0.55-1.30); GLOMERULAR FILTRATION RATE 46.1 (>32); GLUCOSE, FASTING 158 MG/DL (74-106); POTASSIUM SERUM 3.3 MMOL/L (3.5-5.1); SODIUM LEVEL 135 MMOL/L (136-145)
[2022-10-13] MEDS ORDERED: ISOVUE-370 76% 100ML VIAL As Ordered ONE (13:31)
[2022-10-13 13:39] LABS: RSV AMPLIFICATION NEGATIVE (NEGATIVE)
[2022-10-13 13:42] LABS: INR 1.45; PROTHROMBIN TIME 17.9 SECONDS (12.5-14.5)
[2022-10-13 13:43] LABS: PARTIAL THROMBOPLASTIN TIME 32.8 SECONDS (24.8-34.2)
[2022-10-13 14:29] LABS: CK-MB VALUE MASS < 1.0 NG/ML (<3.6)
[2022-10-13 14:34] LABS: CPK CREATINE PHOSPHOKINASE 29 U/L (34-145); MB/CK RELATIVE INDEX 3.44 (< OR =4)
[2022-10-13] MEDS ORDERED: atenoloL 50 MG TAB PO ONE (14:35)
[2022-10-13] MEDS ORDERED: MOXIFLOXACIN HCL 400 MG in IV 1 EA IV ONE (14:40)
[2022-10-13] MEDS ORDERED: MORPHINE 2 MG/ML 1ML VIAL IV PRN (14:55)
[2022-10-13] MEDS: NS 1,000 ML IV SCH ×2 (14:55→23:27)
[2022-10-13] MEDS ORDERED: MED REC IN PROGRESS XX SCH (15:35)
[2022-10-13] MEDS ORDERED: CIPR-249 PO (16:36)
[2022-10-13] MEDS ORDERED: ELIQ5TAB PO (16:36)
[2022-10-13] MEDS ORDERED: JARD1TAB PO (16:36)
[2022-10-13] MEDS ORDERED: ADV250INH INH (16:36)
[2022-10-13] MEDS ORDERED: METR-265 PO (16:36)
[2022-10-13] MEDS ORDERED: HOME MED LIST COMPLETE! XX SCH (16:45)
[2022-10-13] MEDS: KCL 10MEQ/100ML SWI (KRUN) 10 MEQ in IV 1 EA IV SCH ×4 (17:26→22:21)
[2022-10-13] MEDS: LACTOBACILLUS ACIDOPHILUS CAP (BACID) PO SCH (17:49)
[2022-10-13] MEDS: metroNIDAZOLE 500 MG in IV 1 EA IV SCH (17:49)
[2022-10-13] MEDS: MORPHINE 2 MG/ML 1ML VIAL IV PRN (18:21)
[2022-10-13 18:50] VITALS: BP 133/83; TEMP 98.1; O2SAT 96
[2022-10-13] MEDS ORDERED: PROCHLORPERAZINE 10MG 2ML VIAL IV PRN (19:50)
[2022-10-13] MEDS ORDERED: NALOXONE INJ 0.4MG/1ML VIAL IV PRN (19:50)
[2022-10-13] MEDS: FLUCONAZOLE 50MG TABLET PO SCH (20:08)
[2022-10-13] MEDS: ENOXAPARIN 30MG/0.3ML SYRINGE (J1650 PER 10MG) SC SCH (20:12)
[2022-10-13] MEDS: FLUCONAZOLE 100 MG TAB PO SCH (20:20)
[2022-10-13] MEDS: DIAPER RELIEF PASTE (DESITIN) 60GM TOP SCH (20:20)
[2022-10-13 21:00] VITALS: BP 120/79; TEMP 97.9; O2SAT 98
[2022-10-13] MEDS: ADVAIR HFA 115/21MCG INHALER INH SCH (21:06)
[2022-10-14] MEDS: metroNIDAZOLE 500 MG in IV 1 EA IV SCH ×3 (00:34→17:54)
[2022-10-14 05:54] VITALS: BP 118/79; TEMP 97.5; O2SAT 96
[2022-10-14] MEDS: PERCOCET 5MG/325MG TAB PO PRN (06:33)
[2022-10-14 06:51] LABS: INR 1.39; PROTHROMBIN TIME 17.3 SECONDS (12.5-14.5)
[2022-10-14 06:52] LABS: HEMATOCRIT 37.8 % (36.0-47.0); MEAN CORPUSCULAR HEMOGLOBIN 31.1 pg (27.0-33.0); MEAN CORPUSCULAR HGB CONC 32.3 g/dl (32.0-36.5); MEAN CORPUSCULAR VOLUME 96.4 fl (80.0-96.0); PARTIAL THROMBOPLASTIN TIME 34.9 SECONDS (24.8-34.2); PLATELET COUNT, AUTOMATED 251 10^3/uL (150-450); RED BLOOD COUNT 3.92 10^6/uL (4.00-5.40); WHITE BLOOD COUNT 9.4 10^3/uL (4.0-10.0)
[2022-10-14 06:54] LABS: HEMOGLOBIN 12.2 g/dl (12.0-15.5)
[2022-10-14 06:58] LABS: ALBUMIN 2.3 G/DL (3.2-5.2); ALKALINE PHOSPHATASE 63 U/L (46-116); ALT/SGPT < 9 U/L (7.0-40); AST/SGOT < 8 U/L (<34); BILIRUBIN,TOTAL 0.3 MG/DL (0.3-1.2); BLOOD UREA NITROGEN 18 MG/DL (9-23); CALCIUM LEVEL 7.6 MG/DL (8.3-10.6); CARBON DIOXIDE LEVEL 22 MMOL/L (20-31); CHLORIDE LEVEL 110 MMOL/L (98-107); CREATININE FOR GFR 0.87 MG/DL (0.55-1.30); GLOMERULAR FILTRATION RATE > 60.0 (>32); GLUCOSE, FASTING 137 MG/DL (74-106); POTASSIUM SERUM 3.7 MMOL/L (3.5-5.1); SODIUM LEVEL 139 MMOL/L (136-145)
[2022-10-14] MEDS: ADVAIR HFA 115/21MCG INHALER INH SCH ×2 (08:06→20:15)
[2022-10-14] MEDS: FLUCONAZOLE 50MG TABLET PO SCH (09:04)
[2022-10-14] MEDS: LACTOBACILLUS ACIDOPHILUS CAP (BACID) PO SCH ×2 (09:05→18:01)
[2022-10-14] MEDS: DIAPER RELIEF PASTE (DESITIN) 60GM TOP SCH ×2 (09:05→20:51)
[2022-10-14] MEDS: FLUCONAZOLE 100 MG TAB PO SCH (09:05)
[2022-10-14] MEDS: PANTOPRAZOLE 40MG VIAL IV SCH (09:05)
[2022-10-14] MEDS: NS 1,000 ML IV SCH ×2 (09:05→15:50)
[2022-10-14 10:37] LABS: ERYTHROCYTE SEDIMENTATION RATE 81 mm/hr (0-30)
[2022-10-14] MEDS ORDERED: MAG SULF 1GM/100ML (MAG RUN) 1 GM in IV 1 EA IV STA (10:48)
[2022-10-14 11:00] VITALS: BP 128/80; TEMP 97.9; O2SAT 93
[2022-10-14] MEDS ORDERED: MAGNESIUM SULFATE IN WATER 2 GM in IV 1 EA IV ONE ×2 (11:00)
[2022-10-14] MEDS ORDERED: MAG SULF 1GM/100ML (MAG RUN) 1 GM in IV 1 EA IV ONE (11:15)
[2022-10-14 12:19] LABS: ALBUMIN 2.5 G/DL (3.2-5.2); ALKALINE PHOSPHATASE 68 U/L (46-116); ALT/SGPT < 9 U/L (7.0-40); AST/SGOT 18 U/L (<34); BILIRUBIN,TOTAL 0.3 MG/DL (0.3-1.2); BLOOD UREA NITROGEN 18 MG/DL (9-23); CALCIUM LEVEL 7.8 MG/DL (8.3-10.6); CARBON DIOXIDE LEVEL 22 MMOL/L (20-31); CHLORIDE LEVEL 108 MMOL/L (98-107); CREATININE FOR GFR 0.89 MG/DL (0.55-1.30); GLOMERULAR FILTRATION RATE > 60.0 (>32); GLUCOSE, FASTING 141 MG/DL (74-106); MAGNESIUM LEVEL 1.3 MG/DL (1.8-2.4); PHOSPHORUS LEVEL 2.6 MG/DL (2.4-5.1); POTASSIUM SERUM 3.6 MMOL/L (3.5-5.1); SODIUM LEVEL 139 MMOL/L (136-145); TOTAL PROTEIN 5.4 G/DL (5.7-8.2)
[2022-10-14 16:00] VITALS: BP 143/67; TEMP 97.3; O2SAT 96
[2022-10-14] MEDS: CIPROFLOXACIN 400 MG in IV 1 EA IV SCH (16:38)
[2022-10-14 20:00] VITALS: BP 125/60; TEMP 98.8; O2SAT 93
[2022-10-14] MEDS: ENOXAPARIN 30MG/0.3ML SYRINGE (J1650 PER 10MG) SC SCH (20:51)
[2022-10-15] VITALS: BP 115/61; TEMP 97.6; O2SAT 92
[2022-10-15] MEDS: metroNIDAZOLE 500 MG in IV 1 EA IV SCH ×3 (01:05→18:53)
[2022-10-15] MEDS: CIPROFLOXACIN 400 MG in IV 1 EA IV SCH ×2 (03:56→17:27)
[2022-10-15 04:00] VITALS: BP 119/71; TEMP 97.6; O2SAT 93
[2022-10-15 05:06] LABS: HEMOGLOBIN 11.8 g/dl (12.0-15.5); MEAN CORPUSCULAR HEMOGLOBIN 31.3 pg (27.0-33.0); MEAN CORPUSCULAR HGB CONC 31.9 g/dl (32.0-36.5); MEAN CORPUSCULAR VOLUME 98.1 fl (80.0-96.0); PLATELET COUNT, AUTOMATED 220 10^3/uL (150-450); RED BLOOD COUNT 3.77 10^6/uL (4.00-5.40); WHITE BLOOD COUNT 8.9 10^3/uL (4.0-10.0)
[2022-10-15 05:46] LABS: ALBUMIN 2.2 G/DL (3.2-5.2); ALKALINE PHOSPHATASE 60 U/L (46-116); ALT/SGPT 12 U/L (7.0-40); AST/SGOT 13 U/L (<34); BILIRUBIN,TOTAL 0.2 MG/DL (0.3-1.2); BLOOD UREA NITROGEN 10 MG/DL (9-23); CALCIUM LEVEL 8.2 MG/DL (8.3-10.6); CARBON DIOXIDE LEVEL 22 MMOL/L (20-31); CHLORIDE LEVEL 109 MMOL/L (98-107); CREATININE FOR GFR 0.82 MG/DL (0.55-1.30); GLOMERULAR FILTRATION RATE > 60.0 (>32); GLUCOSE, FASTING 159 MG/DL (74-106); MAGNESIUM LEVEL 1.3 MG/DL (1.8-2.4); PHOSPHORUS LEVEL 2.7 MG/DL (2.4-5.1); POTASSIUM SERUM 3.6 MMOL/L (3.5-5.1); SODIUM LEVEL 139 MMOL/L (136-145); TOTAL PROTEIN 4.8 G/DL (5.7-8.2)
[2022-10-15] MEDS: ADVAIR HFA 115/21MCG INHALER INH SCH ×2 (07:22→20:08)
[2022-10-15] MEDS: LACTOBACILLUS ACIDOPHILUS CAP (BACID) PO SCH (07:30)
[2022-10-15] MEDS: PERCOCET 5MG/325MG TAB PO PRN (07:31)
[2022-10-15] MEDS: MAG SULF 1GM/100ML (MAG RUN) 1 GM in IV 1 EA IV SCH ×2 (07:58→09:38)
[2022-10-15 08:00] VITALS: BP 125/72; TEMP 97.5; O2SAT 99
[2022-10-15] MEDS: NS 1,000 ML IV SCH ×2 (09:10→21:08)
[2022-10-15] MEDS: FLUCONAZOLE 50MG TABLET PO SCH (09:38)
[2022-10-15] MEDS: DIAPER RELIEF PASTE (DESITIN) 60GM TOP SCH ×2 (09:38→21:00)
[2022-10-15] MEDS: FLUCONAZOLE 100 MG TAB PO SCH (09:38)
[2022-10-15] MEDS: PANTOPRAZOLE 40MG VIAL IV SCH (09:38)
[2022-10-15] MEDS ORDERED: DEXTROSE 50% 50ML SYRINGE IV PRN (13:30)
[2022-10-15] MEDS ORDERED: GLUCOSE 4GM CHEW TABLET PO PRN (13:30)
[2022-10-15] MEDS ORDERED: GLUCAGON INJ 1MG VIAL SC PRN (13:30)
[2022-10-15] MEDS: MORPHINE 2 MG/ML 1ML VIAL IV PRN ×2 (14:07→21:16)
[2022-10-15] MEDS: INSULIN LISPRO (NovoLOG) PER UNIT SC SCH ×2 (14:08→17:23)
[2022-10-15 15:56] VITALS: BP 136/80; O2SAT 97
[2022-10-15 20:00] VITALS: BP 134/79; TEMP 98.4; O2SAT 96
[2022-10-16] MEDS: metroNIDAZOLE 500 MG in IV 1 EA IV SCH ×3 (01:53→17:51)
[2022-10-16] MEDS: CIPROFLOXACIN 400 MG in IV 1 EA IV SCH ×2 (04:34→16:31)
[2022-10-16 06:00] VITALS: BP 138/81; TEMP 98.2; O2SAT 96
[2022-10-16 06:01] LABS: HEMATOCRIT 35.4 % (36.0-47.0); HEMOGLOBIN 11.1 g/dl (12.0-15.5); MEAN CORPUSCULAR HEMOGLOBIN 30.7 pg (27.0-33.0); MEAN CORPUSCULAR HGB CONC 31.4 g/dl (32.0-36.5); MEAN CORPUSCULAR VOLUME 98.1 fl (80.0-96.0); PLATELET COUNT, AUTOMATED 217 10^3/uL (150-450); RED BLOOD COUNT 3.61 10^6/uL (4.00-5.40); WHITE BLOOD COUNT 7.4 10^3/uL (4.0-10.0)
[2022-10-16 06:19] LABS: ALBUMIN 2.1 G/DL (3.2-5.2); ALKALINE PHOSPHATASE 56 U/L (46-116); ALT/SGPT 13 U/L (7.0-40); AST/SGOT 19 U/L (<34); BILIRUBIN,TOTAL 0.2 MG/DL (0.3-1.2); BLOOD UREA NITROGEN 7 MG/DL (9-23); CALCIUM LEVEL 7.7 MG/DL (8.3-10.6); CARBON DIOXIDE LEVEL 21 MMOL/L (20-31); CHLORIDE LEVEL 111 MMOL/L (98-107); CREATININE FOR GFR 0.73 MG/DL (0.55-1.30); GLOMERULAR FILTRATION RATE > 60.0 (>32); GLUCOSE, FASTING 165 MG/DL (74-106); POTASSIUM SERUM 3.3 MMOL/L (3.5-5.1); SODIUM LEVEL 142 MMOL/L (136-145); TOTAL PROTEIN 4.5 G/DL (5.7-8.2)
[2022-10-16] MEDS: INSULIN LISPRO (NovoLOG) PER UNIT SC SCH ×4 (06:33→17:51)
[2022-10-16] MEDS: NS 1,000 ML IV SCH ×2 (06:41→16:31)
[2022-10-16] MEDS: ADVAIR HFA 115/21MCG INHALER INH SCH ×2 (08:07→19:29)
[2022-10-16] MEDS ORDERED: POTASSIUM CHLORIDE 10MEQ SR TABLET PO ONE (08:30)
[2022-10-16 09:31] VITALS: BP 142/82
[2022-10-16] MEDS: METOPROLOL TART 50 MG TAB PO SCH ×2 (09:32→20:52)
[2022-10-16] MEDS: PANTOPRAZOLE 40MG VIAL IV SCH (09:34)
[2022-10-16] MEDS: DIAPER RELIEF PASTE (DESITIN) 60GM TOP SCH ×2 (09:35→20:53)
[2022-10-16] MEDS: FLUCONAZOLE IV SCH (11:29)
[2022-10-16 14:00] VITALS: BP 128/83; TEMP 97.3; O2SAT 95
[2022-10-16] MEDS: LACTOBACILLUS ACIDOPHILUS CAP (BACID) PO SCH (16:30)
[2022-10-16 22:00] VITALS: BP 130/84; TEMP 97.9; O2SAT 97
[2022-10-17] MEDS: metroNIDAZOLE 500 MG in IV 1 EA IV SCH ×3 (00:19→18:07)
[2022-10-17] MEDS: CIPROFLOXACIN 400 MG in IV 1 EA IV SCH ×2 (03:37→16:42)
[2022-10-17] MEDS: NS 1,000 ML IV SCH ×3 (04:24→23:55)
[2022-10-17 06:00] VITALS: BP 141/91; TEMP 97.5; O2SAT 97
[2022-10-17] MEDS: INSULIN LISPRO (NovoLOG) PER UNIT SC SCH ×4 (06:00→18:07)
[2022-10-17 06:32] LABS: HEMATOCRIT 36.3 % (36.0-47.0); HEMOGLOBIN 11.6 g/dl (12.0-15.5); MEAN CORPUSCULAR HEMOGLOBIN 30.7 pg (27.0-33.0); PLATELET COUNT, AUTOMATED 247 10^3/uL (150-450); RED BLOOD COUNT 3.78 10^6/uL (4.00-5.40); WHITE BLOOD COUNT 7.4 10^3/uL (4.0-10.0)
[2022-10-17 06:54] LABS: ERYTHROCYTE SEDIMENTATION RATE 86 mm/hr (0-30)
[2022-10-17 07:04] LABS: ALBUMIN 2.1 G/DL (3.2-5.2); ALKALINE PHOSPHATASE 83 U/L (46-116); ALT/SGPT 20 U/L (7.0-40); AST/SGOT < 8 U/L (<34); BILIRUBIN,TOTAL 0.3 MG/DL (0.3-1.2); BLOOD UREA NITROGEN 7 MG/DL (9-23); CALCIUM LEVEL 7.7 MG/DL (8.3-10.6); CARBON DIOXIDE LEVEL 22 MMOL/L (20-31); CHLORIDE LEVEL 112 MMOL/L (98-107); CREATININE FOR GFR 0.78 MG/DL (0.55-1.30); GLOMERULAR FILTRATION RATE > 60.0 (>32); GLUCOSE, FASTING 169 MG/DL (74-106); MAGNESIUM LEVEL 1.4 MG/DL (1.8-2.4); POTASSIUM SERUM 3.8 MMOL/L (3.5-5.1); SODIUM LEVEL 142 MMOL/L (136-145); TOTAL PROTEIN 4.8 G/DL (5.7-8.2)
[2022-10-17] MEDS: ADVAIR HFA 115/21MCG INHALER INH SCH ×2 (07:58→20:21)
[2022-10-17] MEDS: PANTOPRAZOLE 40MG VIAL IV SCH (09:07)
[2022-10-17] MEDS: LACTOBACILLUS ACIDOPHILUS CAP (BACID) PO SCH ×2 (09:07→18:06)
[2022-10-17] MEDS: METOPROLOL TART 50 MG TAB PO SCH ×2 (09:09→20:31)
[2022-10-17] MEDS: DIAPER RELIEF PASTE (DESITIN) 60GM TOP SCH ×2 (09:09→20:32)
[2022-10-17] MEDS ORDERED: MAG SULF 1GM/100ML (MAG RUN) 1 GM in IV 1 EA IV ONE (10:00)
[2022-10-17] MEDS: FLUCONAZOLE IV SCH (10:53)
[2022-10-17] MEDS: MAGNESIUM OXIDE 400MG TAB (MAG-OX) PO SCH ×2 (10:54→20:28)
[2022-10-17] MEDS: ACETAMINOPHEN TAB 650MG DOSE (2X325MG) PO PRN ×2 (10:54→18:06)
[2022-10-17 14:00] VITALS: BP 143/95; TEMP 98.2; O2SAT 98
[2022-10-17] MEDS ORDERED: INSULIN LISPRO (NovoLOG) PER UNIT SC SCH (21:00)
[2022-10-17 21:33] VITALS: BP 127/80; TEMP 97.3; O2SAT 96
[2022-10-18] MEDS: metroNIDAZOLE 500 MG in IV 1 EA IV SCH ×2 (00:27→08:00)
[2022-10-18] MEDS: CIPROFLOXACIN 400 MG in IV 1 EA IV SCH (03:39)
[2022-10-18 06:00] VITALS: BP 167/98; TEMP 97.9; O2SAT 99
[2022-10-18] MEDS: ACETAMINOPHEN TAB 650MG DOSE (2X325MG) PO PRN (06:05)
[2022-10-18 06:15] LABS: HEMATOCRIT 37.3 % (36.0-47.0); HEMOGLOBIN 11.9 g/dl (12.0-15.5); MEAN CORPUSCULAR HEMOGLOBIN 30.9 pg (27.0-33.0); MEAN CORPUSCULAR HGB CONC 31.9 g/dl (32.0-36.5); MEAN CORPUSCULAR VOLUME 96.9 fl (80.0-96.0); PLATELET COUNT, AUTOMATED 250 10^3/uL (150-450); RED BLOOD COUNT 3.85 10^6/uL (4.00-5.40); WHITE BLOOD COUNT 8.3 10^3/uL (4.0-10.0)
[2022-10-18 06:50] LABS: ALBUMIN 2.2 G/DL (3.2-5.2); ALKALINE PHOSPHATASE 96 U/L (46-116); ALT/SGPT 24 U/L (7.0-40); AST/SGOT 25 U/L (<34); BILIRUBIN,TOTAL 0.3 MG/DL (0.3-1.2); BLOOD UREA NITROGEN 10 MG/DL (9-23); CALCIUM LEVEL 7.7 MG/DL (8.3-10.6); CARBON DIOXIDE LEVEL 19 MMOL/L (20-31); CHLORIDE LEVEL 113 MMOL/L (98-107); CREATININE FOR GFR 0.77 MG/DL (0.55-1.30); GLOMERULAR FILTRATION RATE > 60.0 (>32); GLUCOSE, FASTING 168 MG/DL (74-106); MAGNESIUM LEVEL 1.5 MG/DL (1.8-2.4); POTASSIUM SERUM 3.5 MMOL/L (3.5-5.1); SODIUM LEVEL 143 MMOL/L (136-145); TOTAL PROTEIN 4.9 G/DL (5.7-8.2)
[2022-10-18 06:51] VITALS: BP 154/92
[2022-10-18] MEDS: PANTOPRAZOLE 40MG VIAL IV SCH (08:00)
[2022-10-18 08:01] VITALS: BP 149/92
[2022-10-18] MEDS: METOPROLOL TART 50 MG TAB PO SCH (08:01)
[2022-10-18] MEDS: INSULIN LISPRO (NovoLOG) PER UNIT SC SCH ×3 (08:01→17:15)
[2022-10-18] MEDS: MAGNESIUM OXIDE 400MG TAB (MAG-OX) PO SCH (08:01)
[2022-10-18] MEDS: LACTOBACILLUS ACIDOPHILUS CAP (BACID) PO SCH ×2 (08:01→17:15)
[2022-10-18] MEDS: DIAPER RELIEF PASTE (DESITIN) 60GM TOP SCH (08:03)
[2022-10-18] MEDS: ADVAIR HFA 115/21MCG INHALER INH SCH (08:25)
[2022-10-18] MEDS ORDERED: FLUCONAZOLE 50MG TABLET PO SCH (09:00)
[2022-10-18] MEDS ORDERED: METAMUCIL (PSYLLIUM) PACKET PO SCH (09:00)
[2022-10-18] MEDS: NS 1,000 ML IV SCH (12:33)
[2022-10-18 14:00] VITALS: BP 149/93; TEMP 98.1; O2SAT 99
[2022-10-18] MEDS ORDERED: metroNIDAZOLE (FLAGYL) 500MG TABLET PO SCH (14:00)
[2022-10-18] MEDS ORDERED: FLUC1TAB21 PO (16:15)
[2022-10-18] MEDS ORDERED: METR-265 PO (16:15)
[2022-10-18] MEDS ORDERED: META1POW PO (16:15)
[2022-10-18] MEDS ORDERED: RISATAB3 PO (16:15)
[2022-10-18] MEDS ORDERED: CIPR-249 PO (16:15)
[2022-10-18] MEDS ORDERED: RA M500C PO (16:40)
[2022-10-18] MEDS ORDERED: CIPROFLOXACIN 500MG TABLET PO SCH (18:00)
== END 2022-10-18 18:32 | disposition home or self-care (01) | DRG 392 ==
LOC: M ED 11:51 → EDBD 11:51 → M ED INP 16:37 → M MSPAV 18:45 → M ICU 10-14 11:31 → M MSPAV 10-15 12:56
PROVIDERS: ADMIT Internal Medicine; ATTEND Internal Medicine
DX: K57.20 Diverticulitis of large intestine with perforation and abscess without bleeding (principal); S36.029A Unspecified contusion of spleen, initial encounter; K92.1 Melena; E87.20 Acidosis, unspecified; I48.91 Unspecified atrial fibrillation; D64.9 Anemia, unspecified; E83.42 Hypomagnesemia; B37.9 Candidiasis, unspecified; E87.6 Hypokalemia; Z79.01 Long term (current) use of anticoagulants; I10 Essential (primary) hypertension; R19.7 Diarrhea, unspecified; E78.5 Hyperlipidemia, unspecified; J44.9 Chronic obstructive pulmonary disease, unspecified; E11.9 Type 2 diabetes mellitus without complications; K21.9 Gastro-esophageal reflux disease without esophagitis; Z98.49 Cataract extraction status, unspecified eye; Z87.891 Personal history of nicotine dependence

== ENCOUNTER → 2022-10-26 | Outpatient (REF) | payer MEDICARE, MEDICAID ==
[~2022-10-26] MED LIST changes: +ADV250INH INH; +CIPR-249 PO; +ELIQ5TAB PO; +FLUC1TAB21 PO; -FLUCONAZOLE 50MG TABLET PO SCH; +JARD1TAB PO; +META1POW PO; +METR-265 PO; +RA M500C PO; +RISATAB3 PO
[2022-10-26 17:57] LABS: BASO # 0.1 10^3/uL (0.0-0.2); BASO % 0.5 % (0.0-1.0); EOS % 0.4 % (0.0-3.0); HEMATOCRIT 38.9 % (36.0-47.0); HEMOGLOBIN 12.3 g/dl (12.0-15.5); LYMPH # 1.8 10^3/uL (1.5-5.0); LYMPH % 16.9 % (24.0-44.0); MEAN CORPUSCULAR HEMOGLOBIN 30.6 pg (27.0-33.0); MEAN CORPUSCULAR HGB CONC 31.6 g/dl (32.0-36.5); MEAN CORPUSCULAR VOLUME 96.8 fl (80.0-96.0); MONO # 0.6 10^3/uL (0.0-0.8); MONO % 5.9 % (2.0-8.0); NEUTROPHILS # 8.2 10^3/uL (1.5-8.5); NEUTROPHILS % 75.8 % (36.0-66.0); PLATELET COUNT, AUTOMATED 270 10^3/uL (150-450); RED BLOOD COUNT 4.02 10^6/uL (4.00-5.40); WHITE BLOOD COUNT 10.8 10^3/uL (4.0-10.0)
[2022-10-26 18:36] LABS: ALBUMIN 2.8 G/DL (3.2-5.2); ALKALINE PHOSPHATASE 67 U/L (46-116); ALT/SGPT < 9 U/L (7.0-40); AST/SGOT 18 U/L (<34); BILIRUBIN,TOTAL 0.3 MG/DL (0.3-1.2); BLOOD UREA NITROGEN 12 MG/DL (9-23); CALCIUM LEVEL 8.2 MG/DL (8.3-10.6); CARBON DIOXIDE LEVEL 28 MMOL/L (20-31); CHLORIDE LEVEL 106 MMOL/L (98-107); CREATININE FOR GFR 0.83 MG/DL (0.55-1.30); GLOMERULAR FILTRATION RATE > 60.0 (>32); GLUCOSE, FASTING 105 MG/DL (74-106); POTASSIUM SERUM 3.5 MMOL/L (3.5-5.1); SODIUM LEVEL 142 MMOL/L (136-145); TOTAL PROTEIN 5.8 G/DL (5.7-8.2)
== END ==
LOC: M SFHCCLAY 11:34
PROVIDERS: ATTEND Family Medicine
DX: K57.92 Diverticulitis of intestine, part unspecified, without perforation or abscess without bleeding (principal)

== ENCOUNTER 2022-11-03 18:58 | Inpatient (IN) | payer MEDICARE, MEDICAID ==
[~2022-11-03] VITALS: Ht 165.1 cm; Wt 77.5 kg
[2022-11-03 20:11] VITALS: BP 122/81; TEMP 97.9; O2SAT 95
[2022-11-03] MEDS ORDERED: DEXTROSE 50% 50ML SYRINGE IV PRN (20:40)
[2022-11-03] MEDS ORDERED: GLUCOSE 4GM CHEW TABLET PO PRN (20:40)
[2022-11-03] MEDS ORDERED: GLUCAGON INJ 1MG VIAL SC PRN (20:40)
[2022-11-03 21:05] LABS: BASO # 0.1 10^3/uL (0.0-0.2); BASO % 0.7 % (0.0-1.0); HEMATOCRIT 42.5 % (36.0-47.0); HEMOGLOBIN 13.6 g/dl (12.0-15.5); LYMPH # 1.7 10^3/uL (1.5-5.0); LYMPH % 15.5 % (24.0-44.0); MEAN CORPUSCULAR HEMOGLOBIN 30.8 pg (27.0-33.0); MEAN CORPUSCULAR VOLUME 96.4 fl (80.0-96.0); MONO # 0.7 10^3/uL (0.0-0.8); MONO % 6.1 % (2.0-8.0); NEUTROPHILS # 8.2 10^3/uL (1.5-8.5); NEUTROPHILS % 77.2 % (36.0-66.0); PLATELET COUNT, AUTOMATED 304 10^3/uL (150-450); RED BLOOD COUNT 4.41 10^6/uL (4.00-5.40); WHITE BLOOD COUNT 10.6 10^3/uL (4.0-10.0)
[2022-11-03 21:19] LABS: HEMOGLOBIN A1c 6.6 % (4.0-6.0)
[2022-11-03] MEDS: LR 1,000 ML IV SCH (21:34)
[2022-11-03] MEDS ORDERED: LR 1,000 ML IV ONE (21:40)
[2022-11-03 21:41] LABS: ALBUMIN 2.9 G/DL (3.2-5.2); BILIRUBIN,TOTAL 0.3 MG/DL (0.3-1.2); CREATININE FOR GFR 1.05 MG/DL (0.55-1.30); GLOMERULAR FILTRATION RATE 53.3 (>32); MAGNESIUM LEVEL 0.9 MG/DL (1.8-2.4); POTASSIUM SERUM 2.8 MMOL/L (3.5-5.1); TOTAL PROTEIN 6.6 G/DL (5.7-8.2)
[2022-11-03] MEDS ORDERED: POTASSIUM CHLORIDE 10MEQ SR TABLET PO ONE (21:55)
[2022-11-03] MEDS: metroNIDAZOLE 500 MG in IV 1 EA IV SCH (22:27)
[2022-11-03 22:30] LABS: INR 1.39; PROTHROMBIN TIME 17.3 SECONDS (12.5-14.5)
[2022-11-03 22:31] LABS: PARTIAL THROMBOPLASTIN TIME 35.6 SECONDS (24.8-34.2)
[2022-11-03] MEDS: MAG SULF 1GM/100ML (MAG RUN) 1 GM in IV 1 EA IV SCH (22:53)
[2022-11-04] MEDS: MAG SULF 1GM/100ML (MAG RUN) 1 GM in IV 1 EA IV SCH ×3 (00:09→13:10)
[2022-11-04] MEDS ORDERED: KCL 10MEQ/100ML SWI (KRUN) 10 MEQ in IV 1 EA IV ONE (00:30)
[2022-11-04] MEDS: AZTREONAM 2 GM in D5W MINI-BAG PLUS 100 ML IV SCH ×2 (00:53→06:34)
[2022-11-04 03:08] LABS: BLOOD UREA NITROGEN 18 MG/DL (9-23); CALCIUM LEVEL 7.6 MG/DL (8.3-10.6); CARBON DIOXIDE LEVEL 28 MMOL/L (20-31); CHLORIDE LEVEL 102 MMOL/L (98-107); CREATININE FOR GFR 0.87 MG/DL (0.55-1.30); GLOMERULAR FILTRATION RATE > 60.0 (>32); GLUCOSE, FASTING 114 MG/DL (74-106); MAGNESIUM LEVEL 1.6 MG/DL (1.8-2.4); POTASSIUM SERUM 3.5 MMOL/L (3.5-5.1); SODIUM LEVEL 138 MMOL/L (136-145)
[2022-11-04] MEDS: PANTOPRAZOLE 40MG VIAL IV SCH (04:21)
[2022-11-04] MEDS: metroNIDAZOLE 500 MG in IV 1 EA IV SCH ×3 (05:25→21:41)
[2022-11-04 05:48] LABS: HEMATOCRIT 38.9 % (36.0-47.0); HEMOGLOBIN 12.5 g/dl (12.0-15.5); MEAN CORPUSCULAR HGB CONC 32.1 g/dl (32.0-36.5); MEAN CORPUSCULAR VOLUME 96.5 fl (80.0-96.0); PLATELET COUNT, AUTOMATED 219 10^3/uL (150-450); RED BLOOD COUNT 4.03 10^6/uL (4.00-5.40); WHITE BLOOD COUNT 7.5 10^3/uL (4.0-10.0)
[2022-11-04 06:00] VITALS: BP 131/80; TEMP 97.3; O2SAT 95
[2022-11-04 06:58] LABS: ALBUMIN 2.4 G/DL (3.2-5.2); ALKALINE PHOSPHATASE 52 U/L (46-116); ALT/SGPT < 9 U/L (7.0-40); AST/SGOT 13 U/L (<34); BILIRUBIN,TOTAL 0.3 MG/DL (0.3-1.2); BLOOD UREA NITROGEN 15 MG/DL (9-23); CALCIUM LEVEL 7.8 MG/DL (8.3-10.6); CARBON DIOXIDE LEVEL 26 MMOL/L (20-31); CHLORIDE LEVEL 104 MMOL/L (98-107); GLOMERULAR FILTRATION RATE > 60.0 (>32); GLUCOSE, FASTING 109 MG/DL (74-106); MAGNESIUM LEVEL 1.5 MG/DL (1.8-2.4); SODIUM LEVEL 142 MMOL/L (136-145); TOTAL PROTEIN 5.3 G/DL (5.7-8.2)
[2022-11-04] MEDS: INSULIN LISPRO (NovoLOG) PER UNIT SC SCH ×5 (07:05→21:00)
[2022-11-04] MEDS: POTASSIUM CHLORIDE 10MEQ SR TABLET PO SCH ×2 (08:14→21:42)
[2022-11-04] MEDS ORDERED: MED REC IN PROGRESS XX SCH (08:45)
[2022-11-04] MEDS ORDERED: CIPR500T39 (09:10)
[2022-11-04] MEDS: LR 1,000 ML IV SCH ×2 (09:50→21:42)
[2022-11-04] MEDS ORDERED: IPRATROPIUM 0.5MG/ALBUTEROL 2.5MG INH SOL UD 3ML (DUONEB) NEB PRN (11:10)
[2022-11-04] MEDS ORDERED: CEFEPIME HCL 2 GM in D5W MINI-BAG PLUS 50 ML IV SCH ×5 (12:00→15:00)
[2022-11-04] MEDS: ENOXAPARIN 80MG/0.8ML SYRINGE (J1650 PER 10MG) SC SCH ×2 (13:10→23:27)
[2022-11-04 14:00] VITALS: BP 127/79; TEMP 97.7; O2SAT 96
[2022-11-04] MEDS: CEFEPIME HCL 2 GM in D5W MINI-BAG PLUS 50 ML IV SCH (15:21)
[2022-11-04] MEDS ORDERED: HOME MED LIST COMPLETE! XX SCH (17:40)
[2022-11-04 20:28] VITALS: BP 128/83; TEMP 98.2; O2SAT 97
[2022-11-04] MEDS ORDERED: METOPROLOL TART 25 MG TABLET PO SCH (21:00)
[2022-11-04] MEDS: ADVAIR HFA 115/21MCG INHALER INH SCH (21:37)
[2022-11-04] MEDS: METOPROLOL TART 50 MG TAB PO SCH (21:42)
[2022-11-04] MEDS: SIMVASTATIN 20 MG TAB PO SCH (21:42)
[2022-11-05] MEDS: CEFEPIME HCL 2 GM in D5W MINI-BAG PLUS 50 ML IV SCH ×2 (03:16→15:23)
[2022-11-05] MEDS: PANTOPRAZOLE 40MG VIAL IV SCH (05:16)
[2022-11-05] MEDS: metroNIDAZOLE 500 MG in IV 1 EA IV SCH ×3 (05:16→22:22)
[2022-11-05 05:59] LABS: BASO # 0.1 10^3/uL (0.0-0.2); BASO % 0.8 % (0.0-1.0); EOS # 0.1 10^3/uL (0.0-0.5); EOS % 0.8 % (0.0-3.0); HEMATOCRIT 38.2 % (36.0-47.0); HEMOGLOBIN 12.1 g/dl (12.0-15.5); LYMPH # 1.3 10^3/uL (1.5-5.0); LYMPH % 22.3 % (24.0-44.0); MEAN CORPUSCULAR HEMOGLOBIN 30.7 pg (27.0-33.0); MEAN CORPUSCULAR HGB CONC 31.7 g/dl (32.0-36.5); MONO # 0.5 10^3/uL (0.0-0.8); MONO % 7.6 % (2.0-8.0); NEUTROPHILS # 4.1 10^3/uL (1.5-8.5); NEUTROPHILS % 67.8 % (36.0-66.0); PLATELET COUNT, AUTOMATED 231 10^3/uL (150-450); RED BLOOD COUNT 3.94 10^6/uL (4.00-5.40)
[2022-11-05 06:00] VITALS: BP 129/84; TEMP 97.7; O2SAT 96
[2022-11-05 06:29] LABS: BLOOD UREA NITROGEN 10 MG/DL (9-23); CALCIUM LEVEL 7.8 MG/DL (8.3-10.6); CARBON DIOXIDE LEVEL 28 MMOL/L (20-31); CHLORIDE LEVEL 108 MMOL/L (98-107); CREATININE FOR GFR 0.67 MG/DL (0.55-1.30); GLOMERULAR FILTRATION RATE > 60.0 (>32); GLUCOSE, FASTING 129 MG/DL (74-106); MAGNESIUM LEVEL 1.7 MG/DL (1.8-2.4); POTASSIUM SERUM 4.1 MMOL/L (3.5-5.1); SODIUM LEVEL 143 MMOL/L (136-145)
[2022-11-05] MEDS ORDERED: MAG SULF 1GM/100ML (MAG RUN) 1 GM in IV 1 EA IV ONE ×2 (06:50→13:00)
[2022-11-05] MEDS: ADVAIR HFA 115/21MCG INHALER INH SCH ×2 (07:13→18:59)
[2022-11-05] MEDS: INSULIN LISPRO (NovoLOG) PER UNIT SC SCH ×4 (08:39→21:00)
[2022-11-05] MEDS: METOPROLOL TART 50 MG TAB PO SCH ×2 (08:41→22:22)
[2022-11-05] MEDS: ENOXAPARIN 80MG/0.8ML SYRINGE (J1650 PER 10MG) SC SCH (11:56)
[2022-11-05 14:00] VITALS: BP 118/77; TEMP 97.3; O2SAT 96
[2022-11-05 20:12] VITALS: BP 118/77; TEMP 97.3; O2SAT 96
[2022-11-05 21:19] VITALS: BP 145/101; TEMP 97.3; O2SAT 97
[2022-11-05] MEDS: SIMVASTATIN 20 MG TAB PO SCH (22:21)
[2022-11-06] MEDS: ENOXAPARIN 80MG/0.8ML SYRINGE (J1650 PER 10MG) SC SCH ×2 (01:12→12:15)
[2022-11-06] MEDS: CEFEPIME HCL 2 GM in D5W MINI-BAG PLUS 50 ML IV SCH ×2 (03:22→15:00)
[2022-11-06] MEDS: PANTOPRAZOLE 40MG VIAL IV SCH (05:47)
[2022-11-06] MEDS: metroNIDAZOLE 500 MG in IV 1 EA IV SCH ×3 (05:47→21:22)
[2022-11-06 05:49] LABS: BASO % 0.8 % (0.0-1.0); EOS % 0.8 % (0.0-3.0); HEMATOCRIT 37.4 % (36.0-47.0); LYMPH # 1.8 10^3/uL (1.5-5.0); LYMPH % 33.7 % (24.0-44.0); MEAN CORPUSCULAR HEMOGLOBIN 30.9 pg (27.0-33.0); MEAN CORPUSCULAR HGB CONC 32.1 g/dl (32.0-36.5); MEAN CORPUSCULAR VOLUME 96.4 fl (80.0-96.0); MONO # 0.4 10^3/uL (0.0-0.8); NEUTROPHILS # 2.9 10^3/uL (1.5-8.5); NEUTROPHILS % 56.1 % (36.0-66.0); PLATELET COUNT, AUTOMATED 232 10^3/uL (150-450); RED BLOOD COUNT 3.88 10^6/uL (4.00-5.40); WHITE BLOOD COUNT 5.2 10^3/uL (4.0-10.0)
[2022-11-06 06:17] LABS: BLOOD UREA NITROGEN 10 MG/DL (9-23); CALCIUM LEVEL 8.1 MG/DL (8.3-10.6); CARBON DIOXIDE LEVEL 26 MMOL/L (20-31); CHLORIDE LEVEL 110 MMOL/L (98-107); CREATININE FOR GFR 0.69 MG/DL (0.55-1.30); GLOMERULAR FILTRATION RATE > 60.0 (>32); GLUCOSE, FASTING 132 MG/DL (74-106); MAGNESIUM LEVEL 1.7 MG/DL (1.8-2.4); POTASSIUM SERUM 3.9 MMOL/L (3.5-5.1); SODIUM LEVEL 144 MMOL/L (136-145)
[2022-11-06 06:35] VITALS: BP 144/100; TEMP 97.5; O2SAT 96
[2022-11-06] MEDS: ADVAIR HFA 115/21MCG INHALER INH SCH ×2 (07:18→20:02)
[2022-11-06] MEDS: INSULIN LISPRO (NovoLOG) PER UNIT SC SCH ×4 (08:14→21:00)
[2022-11-06] MEDS: METOPROLOL TART 50 MG TAB PO SCH ×2 (08:14→21:23)
[2022-11-06] MEDS: MAGNESIUM OXIDE 400MG TAB (MAG-OX) PO SCH ×2 (10:22→21:22)
[2022-11-06 14:00] VITALS: BP 129/85; TEMP 97.7; O2SAT 97
[2022-11-06 20:27] VITALS: BP 131/85; TEMP 97.5; O2SAT 97
[2022-11-06] MEDS: SIMVASTATIN 20 MG TAB PO SCH (21:23)
[2022-11-07] MEDS: ENOXAPARIN 80MG/0.8ML SYRINGE (J1650 PER 10MG) SC SCH
[2022-11-07] MEDS: CEFEPIME HCL 2 GM in D5W MINI-BAG PLUS 50 ML IV SCH (03:34)
[2022-11-07] MEDS: PANTOPRAZOLE 40MG VIAL IV SCH (05:16)
[2022-11-07] MEDS: metroNIDAZOLE 500 MG in IV 1 EA IV SCH (05:16)
[2022-11-07 05:17] VITALS: BP 135/87; TEMP 97.5; O2SAT 97
[2022-11-07 05:48] LABS: BASO # 0.1 10^3/uL (0.0-0.2); BASO % 1.2 % (0.0-1.0); EOS # 0.1 10^3/uL (0.0-0.5); HEMATOCRIT 37.8 % (36.0-47.0); HEMOGLOBIN 12.1 g/dl (12.0-15.5); LYMPH # 1.7 10^3/uL (1.5-5.0); LYMPH % 28.9 % (24.0-44.0); MEAN CORPUSCULAR HEMOGLOBIN 30.9 pg (27.0-33.0); MEAN CORPUSCULAR VOLUME 96.4 fl (80.0-96.0); MONO # 0.4 10^3/uL (0.0-0.8); MONO % 7.2 % (2.0-8.0); NEUTROPHILS # 3.6 10^3/uL (1.5-8.5); NEUTROPHILS % 61.2 % (36.0-66.0); PLATELET COUNT, AUTOMATED 236 10^3/uL (150-450); RED BLOOD COUNT 3.92 10^6/uL (4.00-5.40)
[2022-11-07] MEDS: GASTROGRAFIN SOLUTION 30ML PO SCH ×2 (06:10→06:35)
[2022-11-07 06:14] LABS: BLOOD UREA NITROGEN 11 MG/DL (9-23); CARBON DIOXIDE LEVEL 24 MMOL/L (20-31); CHLORIDE LEVEL 109 MMOL/L (98-107); CREATININE FOR GFR 0.67 MG/DL (0.55-1.30); GLOMERULAR FILTRATION RATE > 60.0 (>32); GLUCOSE, FASTING 145 MG/DL (74-106); MAGNESIUM LEVEL 1.4 MG/DL (1.8-2.4); POTASSIUM SERUM 3.7 MMOL/L (3.5-5.1); SODIUM LEVEL 144 MMOL/L (136-145)
[2022-11-07] MEDS ORDERED: ISOVUE-370 76% 100ML VIAL As Ordered ONE (07:23)
[2022-11-07] MEDS: INSULIN LISPRO (NovoLOG) PER UNIT SC SCH ×4 (07:30→21:00)
[2022-11-07] MEDS: ADVAIR HFA 115/21MCG INHALER INH SCH ×2 (07:36→21:15)
[2022-11-07] MEDS: MAG SULF 1GM/100ML (MAG RUN) 1 GM in IV 1 EA IV SCH ×4 (08:39→11:55)
[2022-11-07] MEDS: MAGNESIUM OXIDE 400MG TAB (MAG-OX) PO SCH ×2 (08:40→20:04)
[2022-11-07] MEDS: METOPROLOL TART 50 MG TAB PO SCH ×2 (08:40→20:04)
[2022-11-07] MEDS: CIPROFLOXACIN 500MG TABLET PO SCH ×2 (11:54→18:44)
[2022-11-07 14:00] VITALS: BP 115/75; TEMP 97.3; O2SAT 93
[2022-11-07] MEDS: metroNIDAZOLE (FLAGYL) 500MG TABLET PO SCH ×2 (16:53→21:36)
[2022-11-07] MEDS: APIXABAN 5 MG TAB (ELIQUIS) PO SCH (20:03)
[2022-11-07] MEDS: SIMVASTATIN 20 MG TAB PO SCH (20:03)
[2022-11-07 21:00] VITALS: BP 123/80; TEMP 97.5; O2SAT 97
[2022-11-08] MEDS: PANTOPRAZOLE 40MG VIAL IV SCH (05:13)
[2022-11-08] MEDS: metroNIDAZOLE (FLAGYL) 500MG TABLET PO SCH ×2 (05:13→14:39)
[2022-11-08] MEDS: CIPROFLOXACIN 500MG TABLET PO SCH (05:14)
[2022-11-08 06:00] VITALS: BP 154/92; TEMP 97.2; O2SAT 96
[2022-11-08 06:38] LABS: BASO # 0.1 10^3/uL (0.0-0.2); BASO % 1.3 % (0.0-1.0); EOS # 0.1 10^3/uL (0.0-0.5); HEMATOCRIT 38.2 % (36.0-47.0); LYMPH # 1.4 10^3/uL (1.5-5.0); LYMPH % 28.3 % (24.0-44.0); MEAN CORPUSCULAR HEMOGLOBIN 30.6 pg (27.0-33.0); MEAN CORPUSCULAR HGB CONC 31.4 g/dl (32.0-36.5); MEAN CORPUSCULAR VOLUME 97.4 fl (80.0-96.0); MONO # 0.4 10^3/uL (0.0-0.8); MONO % 8.3 % (2.0-8.0); NEUTROPHILS # 2.9 10^3/uL (1.5-8.5); NEUTROPHILS % 60.5 % (36.0-66.0); PLATELET COUNT, AUTOMATED 225 10^3/uL (150-450); RED BLOOD COUNT 3.92 10^6/uL (4.00-5.40); WHITE BLOOD COUNT 4.8 10^3/uL (4.0-10.0)
[2022-11-08 06:55] LABS: BLOOD UREA NITROGEN 8 MG/DL (9-23); CALCIUM LEVEL 8.1 MG/DL (8.3-10.6); CARBON DIOXIDE LEVEL 26 MMOL/L (20-31); CHLORIDE LEVEL 106 MMOL/L (98-107); CREATININE FOR GFR 0.66 MG/DL (0.55-1.30); GLOMERULAR FILTRATION RATE > 60.0 (>32); GLUCOSE, FASTING 168 MG/DL (74-106); MAGNESIUM LEVEL 1.7 MG/DL (1.8-2.4); POTASSIUM SERUM 3.9 MMOL/L (3.5-5.1); SODIUM LEVEL 139 MMOL/L (136-145)
[2022-11-08] MEDS: ADVAIR HFA 115/21MCG INHALER INH SCH (07:51)
[2022-11-08] MEDS ORDERED: MAGNESIUM OXIDE 400MG TAB (MAG-OX) PO SCH (09:00)
[2022-11-08] MEDS ORDERED: MAG SULF 1GM/100ML (MAG RUN) 1 GM in IV 1 EA IV ONE (09:00)
[2022-11-08 09:36] VITALS: BP 141/97
[2022-11-08] MEDS: INSULIN LISPRO (NovoLOG) PER UNIT SC SCH ×2 (09:36→11:56)
[2022-11-08] MEDS: METOPROLOL TART 50 MG TAB PO SCH (09:36)
[2022-11-08] MEDS: APIXABAN 5 MG TAB (ELIQUIS) PO SCH (09:36)
[2022-11-08] MEDS ORDERED: METR-265 PO (13:31)
[2022-11-08] MEDS ORDERED: MAGN400T2 PO (13:31)
[2022-11-08] MEDS ORDERED: OXYC1TAB23 PO (13:31)
[2022-11-08] MEDS ORDERED: POTA10CA60 PO (13:31)
[2022-11-08] MEDS ORDERED: CIPR-249 PO (13:31)
[2022-11-08] MEDS ORDERED: PROB250C PO (13:38)
[2022-11-08] MEDS ORDERED: ELIQ5TAB PO (13:38)
[2022-11-08 14:00] VITALS: BP 126/83; TEMP 97.9; O2SAT 92
== END 2022-11-08 15:01 | disposition home or self-care (01) | DRG 392 ==
LOC: M MSPAV 19:00
PROVIDERS: ADMIT Internal Medicine; ATTEND Internal Medicine
DX: K57.80 Diverticulitis of intestine, part unspecified, with perforation and abscess without bleeding (principal); E87.20 Acidosis, unspecified; I48.0 Paroxysmal atrial fibrillation; I10 Essential (primary) hypertension; E78.5 Hyperlipidemia, unspecified; J44.9 Chronic obstructive pulmonary disease, unspecified; E11.9 Type 2 diabetes mellitus without complications; D64.9 Anemia, unspecified; E83.42 Hypomagnesemia; K21.9 Gastro-esophageal reflux disease without esophagitis; E87.6 Hypokalemia; B37.31 Acute candidiasis of vulva and vagina; Z79.01 Long term (current) use of anticoagulants; Z79.899 Other long term (current) drug therapy; Z88.0 Allergy status to penicillin; Z91.018 Allergy to other foods; Z98.49 Cataract extraction status, unspecified eye; Z87.891 Personal history of nicotine dependence

== ENCOUNTER → 2022-11-30 | Outpatient (REF) | payer MEDICARE, MEDICAID ==
[~2022-11-30] MED LIST changes: +CIPR500T39; +MAGN400T2 PO; +OXYC1TAB23 PO; +PROB250C PO
[2022-11-30 17:52] LABS: HEMATOCRIT 41.6 % (36.0-47.0); HEMOGLOBIN 13.2 g/dl (12.0-15.5); MEAN CORPUSCULAR HEMOGLOBIN 31.1 pg (27.0-33.0); MEAN CORPUSCULAR HGB CONC 31.7 g/dl (32.0-36.5); MEAN CORPUSCULAR VOLUME 97.9 fl (80.0-96.0); PLATELET COUNT, AUTOMATED 218 10^3/uL (150-450); RED BLOOD COUNT 4.25 10^6/uL (4.00-5.40); WHITE BLOOD COUNT 8.6 10^3/uL (4.0-10.0)
[2022-11-30 18:16] LABS: BLOOD UREA NITROGEN 19 MG/DL (9-23); C REACTIVE PROTEIN QUANTITATIV < 0.40 MG/DL (<1.0); CALCIUM LEVEL 8.8 MG/DL (8.3-10.6); CARBON DIOXIDE LEVEL 28 MMOL/L (20-31); CHLORIDE LEVEL 106 MMOL/L (98-107); CREATININE FOR GFR 0.96 MG/DL (0.55-1.30); GLOMERULAR FILTRATION RATE 59.1 (>32); GLUCOSE, FASTING 114 MG/DL (74-106); POTASSIUM SERUM 4.2 MMOL/L (3.5-5.1); SODIUM LEVEL 142 MMOL/L (136-145)
== END ==
LOC: M LABDRAWC 17:31
PROVIDERS: ATTEND Surgery
DX: K57.92 Diverticulitis of intestine, part unspecified, without perforation or abscess without bleeding (principal)

== ENCOUNTER → 2022-12-13 | Outpatient (CLI) | payer MEDICARE, MEDICAID ==
[~2022-12-13] MED LIST changes: +GASTROGRAFIN SOLUTION 30ML As Ordered ONE; +ISOVUE-370 76% 100ML VIAL As Ordered ONE
== END ==
LOC: M RAD 08:28
PROVIDERS: ATTEND Surgery
DX: K57.92 Diverticulitis of intestine, part unspecified, without perforation or abscess without bleeding (principal); K76.0 Fatty (change of) liver, not elsewhere classified; N28.1 Cyst of kidney, acquired; K44.9 Diaphragmatic hernia without obstruction or gangrene; N73.9 Female pelvic inflammatory disease, unspecified
CPT/HCPCS: 74177; Q9963; Q9967

== ENCOUNTER 2023-01-06 10:24 | Day surgery (SDC) | payer MEDICARE, MEDICAID ==
[~2023-01-06] VITALS: Ht 162.6 cm; Wt 72.8 kg
[~2023-01-06 10:24] MED LIST changes: -GASTROGRAFIN SOLUTION 30ML As Ordered ONE; -ISOVUE-370 76% 100ML VIAL As Ordered ONE; +LIDOCAINE 2% 100MG/5ML SDV (FOR ANES.) As Ordered ONE; +NS 1,000 ML IV ONE; +propofoL 200 MG/20 ML VIAL As Ordered ONE
[2023-01-06 11:24] VITALS: TEMP 98.2
[2023-01-06 11:49] VITALS: BP 120/70; O2SAT 91
== END 2023-01-06 11:51 | disposition home or self-care (01) ==
LOC: M OPP 10:24
PROVIDERS: ATTEND Surgery
DX: K57.32 Diverticulitis of large intestine without perforation or abscess without bleeding (principal); K56.699 Other intestinal obstruction unspecified as to partial versus complete obstruction; I48.91 Unspecified atrial fibrillation; I10 Essential (primary) hypertension; E78.5 Hyperlipidemia, unspecified; E11.9 Type 2 diabetes mellitus without complications; M19.90 Unspecified osteoarthritis, unspecified site; J44.9 Chronic obstructive pulmonary disease, unspecified; Z87.891 Personal history of nicotine dependence; Z88.0 Allergy status to penicillin; Z91.018 Allergy to other foods; Z79.01 Long term (current) use of anticoagulants; Z79.84 Long term (current) use of oral hypoglycemic drugs; Z79.899 Other long term (current) drug therapy

== ENCOUNTER → 2023-02-21 | Outpatient (REF) | payer MEDICARE, MEDICAID ==
[~2023-02-21] MED LIST changes: +GLIP5TAB17 PO; -GLIP5TAB8 PO; -LIDOCAINE 2% 100MG/5ML SDV (FOR ANES.) As Ordered ONE; -NS 1,000 ML IV ONE; -propofoL 200 MG/20 ML VIAL As Ordered ONE
[2023-02-21 12:12] LABS: BASO # 0.1 10^3/uL (0.0-0.2); BASO % 0.9 % (0.0-1.0); EOS # 0.9 10^3/uL (0.0-0.5); EOS % 9.7 % (0.0-3.0); HEMATOCRIT 42.1 % (36.0-47.0); HEMOGLOBIN 13.4 g/dl (12.0-15.5); LYMPH # 2.1 10^3/uL (1.5-5.0); LYMPH % 23.1 % (24.0-44.0); MEAN CORPUSCULAR HGB CONC 31.8 g/dl (32.0-36.5); MEAN CORPUSCULAR VOLUME 97.5 fl (80.0-96.0); MONO # 0.6 10^3/uL (0.0-0.8); MONO % 6.3 % (2.0-8.0); NEUTROPHILS # 5.4 10^3/uL (1.5-8.5); NEUTROPHILS % 59.7 % (36.0-66.0); PLATELET COUNT, AUTOMATED 222 10^3/uL (150-450); RED BLOOD COUNT 4.32 10^6/uL (4.00-5.40)
[2023-02-21 12:34] LABS: ALBUMIN 3.1 G/DL (3.2-5.2); BILIRUBIN,TOTAL 0.5 MG/DL (0.3-1.2); GLOMERULAR FILTRATION RATE 56.4 (>32); POTASSIUM SERUM 4.3 MMOL/L (3.5-5.1); TOTAL PROTEIN 6.6 G/DL (5.7-8.2)
[2023-02-21 13:05] LABS: HEMOGLOBIN A1c 6.5 % (4.0-6.0)
== END ==
LOC: M SFHCCLAY 06:47
PROVIDERS: ATTEND Family Medicine
DX: K57.92 Diverticulitis of intestine, part unspecified, without perforation or abscess without bleeding (principal); E11.9 Type 2 diabetes mellitus without complications; M70.61 Trochanteric bursitis, right hip; N18.30 Chronic kidney disease, stage 3 unspecified

== ENCOUNTER 2023-03-07 07:08 | Inpatient (IN) | payer MEDICARE, MEDICAID ==
[~2023-03-07] VITALS: Ht 162.6 cm; Wt 73.1 kg
[2023-03-07] VITALS (7 sets, daily range): BP systolic 96–135; BP diastolic 58–74; TEMP 97.5–98.1; O2SAT 95–97
[~2023-03-07 07:08] MED LIST changes: +CelecoXIB 400 MG CAP PO ONE; +HEPARIN SOD (PORCINE) 5000UNITS/ML 1ML VIAL/SYRINGE SQ ONE; +ceFAZolin SOD 2 GM in IV 1 EA IV ONE; +metroNIDAZOLE 500 MG in IV 1 EA IV ONE
[2023-03-07] MEDS ORDERED: LR 1,000 ML IV SCH ×2 (07:15→14:35)
[2023-03-07] MEDS ORDERED: POTA-150 PO (07:47)
[2023-03-07] MEDS ORDERED: META28.32 PO (07:47)
[2023-03-07] MEDS ORDERED: ELIQ5TAB PO (07:47)
[2023-03-07] MEDS ORDERED: METR-265 PO (07:47)
[2023-03-07] MEDS ORDERED: METO50TA7 PO (07:47)
[2023-03-07] MEDS ORDERED: NEOM500T PO (07:47)
[2023-03-07] MEDS ORDERED: HOME MED LIST COMPLETE! XX SCH (07:50)
[2023-03-07] MEDS ORDERED: INDOCYANINE GREEN 25MG VIAL (IC-GREEN) As Ordered ONE (08:07)
[2023-03-07] MEDS ORDERED: LIDOCAINE 1% SDV 30ML VIAL As Ordered ONE (08:07)
[2023-03-07] MEDS ORDERED: ACETAMINOPHEN 1000MG 100ML IV BAG As Ordered ONE (09:54)
[2023-03-07] MEDS ORDERED: ROCURONIUM BROMIDE 50MG/5ML VIAL As Ordered ONE ×2 (09:54→11:23)
[2023-03-07] MEDS ORDERED: PHENYLEPHRINE 10MG/ML 1ML VIAL As Ordered ONE (09:54)
[2023-03-07] MEDS ORDERED: fentaNYL 100 MCG/2 ML INJECTION As Ordered ONE (09:54)
[2023-03-07] MEDS ORDERED: ONDANSETRON 4MG 2ML VIAL As Ordered ONE (09:54)
[2023-03-07] MEDS ORDERED: PHENYLephrine 500MCG 5ML (100MCG/ML) SYRINGE As Ordered ONE (09:54)
[2023-03-07] MEDS ORDERED: LIDOCAINE 2% 100MG/5ML SDV (FOR ANES.) As Ordered ONE (09:54)
[2023-03-07] MEDS ORDERED: propofoL 200 MG/20 ML VIAL As Ordered ONE (09:54)
[2023-03-07] MEDS ORDERED: SUGAMMADEX SODIUM 500 MG/5 ML VIAL (BRIDION) As Ordered ONE (11:23)
[2023-03-07] MEDS ORDERED: metroNIDAZOLE/NACL 500MG(5MG/ML) 100ML BAG As Ordered ONE (12:58)
[2023-03-07] MEDS ORDERED: ceFAZolin 2 GM/D5W 50 ML IV BAG As Ordered ONE (12:58)
[2023-03-07] MEDS ORDERED: ONDANSETRON 4MG 2ML VIAL IV PRN ×2 (14:35→14:45)
[2023-03-07] MEDS ORDERED: oxyCODONE 5MG TAB PO PRN (14:35)
[2023-03-07] MEDS ORDERED: HYDROMORPHONE HCL 0.5 MG/ 0.5 ML SYRINGE IV PRN (14:35)
[2023-03-07] MEDS ORDERED: fentaNYL 100 MCG/2 ML INJECTION IV PRN (14:35)
[2023-03-07] MEDS ORDERED: ACETAMINOPHEN TAB 650MG DOSE (2X325MG) PO PRN (14:45)
[2023-03-07] MEDS ORDERED: PROMETHAZINE 25MG/ML 1ML VIAL IV PRN (14:45)
[2023-03-07] MEDS ORDERED: DEXTROSE 50% 50ML SYRINGE IV PRN (14:45)
[2023-03-07] MEDS ORDERED: GLUCOSE 4GM CHEW TABLET PO PRN (14:45)
[2023-03-07] MEDS ORDERED: PERCOCET 5MG/325MG TAB PO PRN (14:45)
[2023-03-07] MEDS ORDERED: GLUCAGON INJ 1MG VIAL SC PRN (14:45)
[2023-03-07] MEDS ORDERED: HYDROmorphone HCL 2MG/ML 1ML VIAL As Ordered ONE (14:48)
[2023-03-07] MEDS: LR 1,000 ML IV SCH (17:09)
[2023-03-07] MEDS: INSULIN LISPRO (NovoLOG) PER UNIT SC SCH (17:51)
[2023-03-07] MEDS: KETOROLAC 30 MG/ML 1ML VIAL IV SCH (17:52)
[2023-03-07] MEDS: PERCOCET 5MG/325MG TAB PO PRN (19:28)
[2023-03-07] MEDS: SIMVASTATIN 10 MG TAB PO SCH (20:20)
[2023-03-07] MEDS: METOPROLOL TART 50 MG TAB PO SCH (20:22)
[2023-03-08] VITALS (8 sets, daily range): BP systolic 88–110; BP diastolic 48–86; TEMP 97–97.9; O2SAT 91–96
[2023-03-08] MEDS: INSULIN LISPRO (NovoLOG) PER UNIT SC SCH ×5 (00:16→20:51)
[2023-03-08] MEDS: KETOROLAC 30 MG/ML 1ML VIAL IV SCH ×5 (00:17→23:25)
[2023-03-08] MEDS: LR 1,000 ML IV SCH ×4 (00:18→21:13)
[2023-03-08 05:51] LABS: BASO % 0.2 % (0.0-1.0); HEMATOCRIT 33.4 % (36.0-47.0); HEMOGLOBIN 10.9 g/dl (12.0-15.5); LYMPH # 1.5 10^3/uL (1.5-5.0); LYMPH % 12.7 % (24.0-44.0); MEAN CORPUSCULAR HEMOGLOBIN 31.1 pg (27.0-33.0); MEAN CORPUSCULAR HGB CONC 32.6 g/dl (32.0-36.5); MEAN CORPUSCULAR VOLUME 95.2 fl (80.0-96.0); MONO # 0.6 10^3/uL (0.0-0.8); MONO % 5.3 % (2.0-8.0); NEUTROPHILS # 9.3 10^3/uL (1.5-8.5); NEUTROPHILS % 81.4 % (36.0-66.0); PLATELET COUNT, AUTOMATED 181 10^3/uL (150-450); RED BLOOD COUNT 3.51 10^6/uL (4.00-5.40); WHITE BLOOD COUNT 11.4 10^3/uL (4.0-10.0)
[2023-03-08 06:14] LABS: CALCIUM LEVEL 7.7 MG/DL (8.3-10.6); CREATININE FOR GFR 1.01 MG/DL (0.55-1.30); GLOMERULAR FILTRATION RATE 55.7 (>32); POTASSIUM SERUM 4.2 MMOL/L (3.5-5.1)
[2023-03-08] MEDS: ADVAIR HFA 115/21MCG INHALER INH SCH (08:07)
[2023-03-08] MEDS: PANTOPRAZOLE 40MG VIAL IV SCH (08:16)
[2023-03-08] MEDS: ALVIMOPAN 12 MG CAPSULE (ENTEREG) PO SCH ×2 (08:17→21:08)
[2023-03-08] MEDS: ENOXAPARIN 40MG/0.4ML SYRINGE (J1650 PER 10MG) SC SCH (08:17)
[2023-03-08] MEDS: METOPROLOL TART 50 MG TAB PO SCH ×2 (08:20→21:02)
[2023-03-08] MEDS ORDERED: LOSARTAN 50MG TABLET PO SCH (09:00)
[2023-03-08] MEDS: SIMVASTATIN 10 MG TAB PO SCH (21:08)
[2023-03-09] VITALS (7 sets, daily range): BP systolic 80–126; BP diastolic 50–82; TEMP 97.2–98.8; O2SAT 94–98
[2023-03-09] MEDS: LR 1,000 ML IV SCH (04:59)
[2023-03-09] MEDS: KETOROLAC 30 MG/ML 1ML VIAL IV SCH ×4 (05:00→23:57)
[2023-03-09 05:35] LABS: BASO % 0.5 % (0.0-1.0); EOS % 0.5 % (0.0-3.0); HEMATOCRIT 31.9 % (36.0-47.0); LYMPH # 1.5 10^3/uL (1.5-5.0); LYMPH % 17.1 % (24.0-44.0); MEAN CORPUSCULAR HEMOGLOBIN 30.1 pg (27.0-33.0); MEAN CORPUSCULAR HGB CONC 31.3 g/dl (32.0-36.5); MEAN CORPUSCULAR VOLUME 96.1 fl (80.0-96.0); MONO # 0.6 10^3/uL (0.0-0.8); MONO % 6.7 % (2.0-8.0); NEUTROPHILS # 6.4 10^3/uL (1.5-8.5); NEUTROPHILS % 74.5 % (36.0-66.0); PLATELET COUNT, AUTOMATED 159 10^3/uL (150-450); RED BLOOD COUNT 3.32 10^6/uL (4.00-5.40); WHITE BLOOD COUNT 8.6 10^3/uL (4.0-10.0)
[2023-03-09 05:59] LABS: CALCIUM LEVEL 7.6 MG/DL (8.3-10.6); CREATININE FOR GFR 0.97 MG/DL (0.55-1.30); GLOMERULAR FILTRATION RATE 58.4 (>32); POTASSIUM SERUM 3.8 MMOL/L (3.5-5.1)
[2023-03-09] MEDS: ADVAIR HFA 115/21MCG INHALER INH SCH (07:26)
[2023-03-09] MEDS: INSULIN LISPRO (NovoLOG) PER UNIT SC SCH ×4 (08:14→20:20)
[2023-03-09] MEDS: ALVIMOPAN 12 MG CAPSULE (ENTEREG) PO SCH ×2 (08:14→20:26)
[2023-03-09] MEDS: PANTOPRAZOLE 40MG VIAL IV SCH (08:14)
[2023-03-09] MEDS: PERCOCET 5MG/325MG TAB PO PRN (08:15)
[2023-03-09] MEDS: ENOXAPARIN 40MG/0.4ML SYRINGE (J1650 PER 10MG) SC SCH (08:15)
[2023-03-09] MEDS: METOPROLOL TART 50 MG TAB PO SCH ×2 (10:09→20:25)
[2023-03-09] MEDS: SIMVASTATIN 10 MG TAB PO SCH (20:25)
[2023-03-10 05:29] VITALS: BP 133/78; TEMP 97.9; O2SAT 98
[2023-03-10] MEDS: KETOROLAC 30 MG/ML 1ML VIAL IV SCH ×2 (05:45→12:14)
[2023-03-10 06:14] LABS: BASO % 0.5 % (0.0-1.0); EOS # 0.1 10^3/uL (0.0-0.5); HEMATOCRIT 31.9 % (36.0-47.0); HEMOGLOBIN 10.1 g/dl (12.0-15.5); LYMPH # 1.7 10^3/uL (1.5-5.0); LYMPH % 20.5 % (24.0-44.0); MEAN CORPUSCULAR HEMOGLOBIN 31.3 pg (27.0-33.0); MEAN CORPUSCULAR HGB CONC 31.7 g/dl (32.0-36.5); MEAN CORPUSCULAR VOLUME 98.8 fl (80.0-96.0); MONO # 0.5 10^3/uL (0.0-0.8); MONO % 6.3 % (2.0-8.0); NEUTROPHILS # 5.8 10^3/uL (1.5-8.5); NEUTROPHILS % 71.2 % (36.0-66.0); PLATELET COUNT, AUTOMATED 168 10^3/uL (150-450); RED BLOOD COUNT 3.23 10^6/uL (4.00-5.40); WHITE BLOOD COUNT 8.1 10^3/uL (4.0-10.0)
[2023-03-10 06:42] LABS: CALCIUM LEVEL 7.9 MG/DL (8.3-10.6); CREATININE FOR GFR 0.98 MG/DL (0.55-1.30); GLOMERULAR FILTRATION RATE 57.7 (>32)
[2023-03-10] MEDS: ADVAIR HFA 115/21MCG INHALER INH SCH (07:27)
[2023-03-10] MEDS ORDERED: glipiZIDE (GLUCOTROL) 5 MG TAB PO SCH (07:30)
[2023-03-10] MEDS ORDERED: metFORMIN (GLUCOPHAGE) 500MG TAB PO SCH (08:00)
[2023-03-10] MEDS ORDERED: OMEPRAZOLE 20MG CAP PO SCH (09:00)
[2023-03-10] MEDS ORDERED: FUROSEMIDE 20 MG TAB PO SCH (09:00)
[2023-03-10] MEDS ORDERED: APIXABAN 5 MG TAB (ELIQUIS) PO SCH (09:00)
[2023-03-10] MEDS: PANTOPRAZOLE 40MG VIAL IV SCH (09:36)
[2023-03-10] MEDS: ALVIMOPAN 12 MG CAPSULE (ENTEREG) PO SCH (09:37)
[2023-03-10] MEDS: INSULIN LISPRO (NovoLOG) PER UNIT SC SCH ×2 (09:37→11:46)
[2023-03-10 09:38] VITALS: BP 133/78
[2023-03-10] MEDS: METOPROLOL TART 50 MG TAB PO SCH (09:38)
[2023-03-10] MEDS: PERCOCET 5MG/325MG TAB PO PRN (09:43)
[2023-03-10 10:00] VITALS: BP 116/82; TEMP 97.9; O2SAT 100
[2023-03-10] MEDS ORDERED: PERCOCET PO (10:17)
== END 2023-03-10 13:23 | disposition home or self-care (01) | DRG 331 ==
LOC: M OR 07:08 → M MSPAV 16:02
PROVIDERS: ADMIT Surgery; ATTEND Surgery
PROC: 0DJD8ZZ Inspection of Lower Intestinal Tract, Via Natural or Artificial Opening Endoscopic (ICD-10-PCS; 2023-03-07)
PROC: 4A1BXSH Monitoring of Gastrointestinal Vascular Perfusion using Indocyanine Green Dye, External Approach (ICD-10-PCS; 2023-03-07 08:30)
PROC: 0DTN4ZZ Resection of Sigmoid Colon, Percutaneous Endoscopic Approach (ICD-10-PCS; principal; 2023-03-08)
PROC: 8E0W4CZ Robotic Assisted Procedure of Trunk Region, Percutaneous Endoscopic Approach (ICD-10-PCS; 2023-03-08)
PROC: 0T778DZ Dilation of Left Ureter with Intraluminal Device, Via Natural or Artificial Opening Endoscopic (ICD-10-PCS; 2023-03-08)
DX: K57.80 Diverticulitis of intestine, part unspecified, with perforation and abscess without bleeding (principal); I12.9 Hypertensive chronic kidney disease with stage 1 through stage 4 chronic kidney disease, or unspecified chronic kidney disease; E11.22 Type 2 diabetes mellitus with diabetic chronic kidney disease; E78.00 Pure hypercholesterolemia, unspecified; M19.90 Unspecified osteoarthritis, unspecified site; N18.30 Chronic kidney disease, stage 3 unspecified; E11.43 Type 2 diabetes mellitus with diabetic autonomic (poly)neuropathy; I48.91 Unspecified atrial fibrillation; Z98.41 Cataract extraction status, right eye; Z98.42 Cataract extraction status, left eye; Z87.891 Personal history of nicotine dependence; Z88.0 Allergy status to penicillin; Z88.8 Allergy status to other drugs, medicaments and biological substances; Z79.84 Long term (current) use of oral hypoglycemic drugs; Z79.01 Long term (current) use of anticoagulants; Z79.899 Other long term (current) drug therapy

== ENCOUNTER → 2023-04-19 | Outpatient (REF) | payer MEDICARE, MEDICAID ==
[~2023-04-19] MED LIST changes: -CelecoXIB 400 MG CAP PO ONE; -HEPARIN SOD (PORCINE) 5000UNITS/ML 1ML VIAL/SYRINGE SQ ONE; +META28.32 PO; +NEOM500T PO; +PERCOCET PO; +POTA-150 PO; -ceFAZolin SOD 2 GM in IV 1 EA IV ONE; -metroNIDAZOLE 500 MG in IV 1 EA IV ONE
[2023-04-19 13:14] LABS: HEMATOCRIT 36.7 % (36.0-47.0); HEMOGLOBIN 11.3 g/dl (12.0-15.5); MEAN CORPUSCULAR HGB CONC 30.8 g/dl (32.0-36.5); MEAN CORPUSCULAR VOLUME 94.3 fl (80.0-96.0); PLATELET COUNT, AUTOMATED 188 10^3/uL (150-450); RED BLOOD COUNT 3.89 10^6/uL (4.00-5.40); WHITE BLOOD COUNT 8.8 10^3/uL (4.0-10.0)
[2023-04-19 13:23] LABS: THYROID STIMULATING HORMONE 2.507 uIU/ML (0.55-4.78)
[2023-04-19 13:24] LABS: ALKALINE PHOSPHATASE 81 U/L (46-116); ALT/SGPT 17 U/L (7.0-40); AST/SGOT 20 U/L (<34); BILIRUBIN,TOTAL 0.5 MG/DL (0.3-1.2); BLOOD UREA NITROGEN 16 MG/DL (9-23); CALCIUM LEVEL 8.6 MG/DL (8.3-10.6); CARBON DIOXIDE LEVEL 26 MMOL/L (20-31); CHLORIDE LEVEL 110 MMOL/L (98-107); CREATININE FOR GFR 0.88 MG/DL (0.55-1.30); GLOMERULAR FILTRATION RATE > 60.0 (>32); GLUCOSE, FASTING 140 MG/DL (74-106); POTASSIUM SERUM 4.6 MMOL/L (3.5-5.1); SODIUM LEVEL 141 MMOL/L (136-145)
[2023-04-19 13:25] LABS: FREE T4 1.01 NG/DL (0.89-1.76)
[2023-04-19 13:42] LABS: HEMOGLOBIN A1c 6.3 % (4.0-6.0)
== END ==
LOC: M SFHCCLAY 06:46
PROVIDERS: ATTEND Family Medicine
DX: M25.551 Pain in right hip (principal); I10 Essential (primary) hypertension; E78.00 Pure hypercholesterolemia, unspecified; E11.9 Type 2 diabetes mellitus without complications; I48.91 Unspecified atrial fibrillation

== ENCOUNTER → 2023-06-01 | Outpatient (REF) | payer MEDICARE, MEDICAID ==
[2023-06-01 12:39] LABS: BASO # 0.1 10^3/uL (0.0-0.2); EOS # 0.2 10^3/uL (0.0-0.5); EOS % 2.7 % (0.0-3.0); HEMATOCRIT 39.2 % (36.0-47.0); HEMOGLOBIN 11.9 g/dl (12.0-15.5); LYMPH # 2.3 10^3/uL (1.5-5.0); LYMPH % 27.8 % (24.0-44.0); MEAN CORPUSCULAR HEMOGLOBIN 27.8 pg (27.0-33.0); MEAN CORPUSCULAR HGB CONC 30.4 g/dl (32.0-36.5); MEAN CORPUSCULAR VOLUME 91.6 fl (80.0-96.0); MONO # 0.6 10^3/uL (0.0-0.8); MONO % 6.8 % (2.0-8.0); NEUTROPHILS # 5.1 10^3/uL (1.5-8.5); NEUTROPHILS % 61.3 % (36.0-66.0); PLATELET COUNT, AUTOMATED 233 10^3/uL (150-450); RED BLOOD COUNT 4.28 10^6/uL (4.00-5.40); WHITE BLOOD COUNT 8.2 10^3/uL (4.0-10.0)
[2023-06-01 12:49] LABS: CHOLESTEROL RISK RATIO 2.62 (<5); HDL CHOLESTEROL 56.4 MG/DL (>40); LDL CHOLESTEROL 74.4 MG/DL (<100); NON-HDL-C 91.6 MG/DL; PERCENT SATURATION 4.7 % (13.2-45.0)
[2023-06-01 13:12] LABS: CREATININE, URINE 126.4 MG/DL; MAU/CREAT RATIO 8.7 MCG/MG (0.0-30.0)
== END ==
LOC: M SFHCCLAY 06:50
PROVIDERS: ATTEND Physician Assistant
DX: E78.00 Pure hypercholesterolemia, unspecified (principal); E11.9 Type 2 diabetes mellitus without complications; D64.9 Anemia, unspecified

== ENCOUNTER → 2023-06-29 | Outpatient (REF) | payer MEDICARE, MEDICAID ==
[2023-06-29 11:58] LABS: HEMATOCRIT 41.3 % (36.0-47.0); HEMOGLOBIN 12.7 g/dl (12.0-15.5); MEAN CORPUSCULAR HEMOGLOBIN 28.1 pg (27.0-33.0); MEAN CORPUSCULAR HGB CONC 30.8 g/dl (32.0-36.5); MEAN CORPUSCULAR VOLUME 91.4 fl (80.0-96.0); PLATELET COUNT, AUTOMATED 210 10^3/uL (150-450); RED BLOOD COUNT 4.52 10^6/uL (4.00-5.40); WHITE BLOOD COUNT 8.2 10^3/uL (4.0-10.0)
[2023-06-29 12:36] LABS: PERCENT SATURATION 7.8 % (13.2-45.0)
== END ==
LOC: M SFHCCLAY 06:46
PROVIDERS: ATTEND Physician Assistant
DX: D50.9 Iron deficiency anemia, unspecified (principal)

== ENCOUNTER → 2023-08-24 | Outpatient (REF) | payer MEDICARE, MEDICAID ==
[~2023-08-24] MED LIST changes: -ETOD-173 PO; +ETOD-234 PO; -POTA10CA60 PO; +POTA10CA70 PO
[2023-08-24 12:28] LABS: CALCIUM LEVEL 9.2 MG/DL (8.3-10.6); CHOLESTEROL RISK RATIO 3.05 (<5); CREATININE FOR GFR 1.16 MG/DL (0.55-1.30); GLOMERULAR FILTRATION RATE 47.5 (>32); HDL CHOLESTEROL 47.5 MG/DL (>40); LDL CHOLESTEROL 75.7 MG/DL (<100); NON-HDL-C 97.5 MG/DL; PERCENT SATURATION 25.9 % (13.2-45.0); POTASSIUM SERUM 4.7 MMOL/L (3.5-5.1)
[2023-08-24 13:13] LABS: HEMOGLOBIN A1c 6.3 % (4.0-6.0)
== END ==
LOC: M SFHCCLAY 08:18
PROVIDERS: ATTEND Family Medicine
DX: E78.00 Pure hypercholesterolemia, unspecified (principal); M25.551 Pain in right hip; I10 Essential (primary) hypertension; E11.9 Type 2 diabetes mellitus without complications; D50.9 Iron deficiency anemia, unspecified

== ENCOUNTER → 2023-11-22 | Outpatient (REF) | payer MEDICARE, MEDICAID ==
[~2023-11-22] MED LIST changes: +ONDA-282 PO; -ONDA4TAB6 PO
[2023-11-22 11:25] LABS: HEMATOCRIT 45.5 % (36.0-47.0); HEMOGLOBIN 14.8 g/dl (12.0-15.5); MEAN CORPUSCULAR HEMOGLOBIN 32.5 pg (27.0-33.0); MEAN CORPUSCULAR HGB CONC 32.5 g/dl (32.0-36.5); PLATELET COUNT, AUTOMATED 155 10^3/uL (150-450); RED BLOOD COUNT 4.55 10^6/uL (4.00-5.40); WHITE BLOOD COUNT 7.6 10^3/uL (4.0-10.0)
[2023-11-22 11:34] LABS: CALCIUM LEVEL 9.2 MG/DL (8.3-10.6); CREATININE FOR GFR 1.17 MG/DL (0.55-1.30); GLOMERULAR FILTRATION RATE 46.9 (>32); POTASSIUM SERUM 5.3 MMOL/L (3.5-5.1)
[2023-11-22 12:00] LABS: HEMOGLOBIN A1c 7.1 % (4.0-6.0)
== END ==
LOC: M SFHCCLAY 07:41
PROVIDERS: ATTEND Family Medicine
DX: E11.9 Type 2 diabetes mellitus without complications (principal); I10 Essential (primary) hypertension; D50.9 Iron deficiency anemia, unspecified

== ENCOUNTER → 2023-12-08 | Outpatient (REF) | payer MEDICARE, MEDICAID ==
[2023-12-08 11:28] LABS: HEMATOCRIT 44.9 % (36.0-47.0); HEMOGLOBIN 14.4 g/dl (12.0-15.5); MEAN CORPUSCULAR HEMOGLOBIN 31.9 pg (27.0-33.0); MEAN CORPUSCULAR HGB CONC 32.1 g/dl (32.0-36.5); MEAN CORPUSCULAR VOLUME 99.3 fl (80.0-96.0); PLATELET COUNT, AUTOMATED 168 10^3/uL (150-450); RED BLOOD COUNT 4.52 10^6/uL (4.00-5.40)
[2023-12-08 11:44] LABS: POTASSIUM SERUM 4.2 MMOL/L (3.5-5.1)
[2023-12-08 11:53] LABS: PERCENT SATURATION 20.1 % (13.2-45.0)
== END ==
LOC: M SFHCCLAY 07:02
PROVIDERS: ATTEND Family Medicine
DX: E87.5 Hyperkalemia (principal); D50.9 Iron deficiency anemia, unspecified

== ENCOUNTER → 2024-01-05 | Outpatient (REF) | payer MEDICARE, MEDICAID ==
[2024-01-05 12:02] LABS: CALCIUM LEVEL 8.9 MG/DL (8.3-10.6); CREATININE FOR GFR 1.3 MG/DL (0.55-1.30); GLOMERULAR FILTRATION RATE 41.5 (>32); POTASSIUM SERUM 4.2 MMOL/L (3.5-5.1)
== END ==
LOC: M SFHCCLAY 07:02
PROVIDERS: ATTEND Family Medicine
DX: I10 Essential (primary) hypertension (principal); E11.9 Type 2 diabetes mellitus without complications

== ENCOUNTER → 2024-02-20 | Outpatient (REF) | payer MEDICARE, MEDICAID ==
[~2024-02-20] MED LIST changes: +GABA-1172 PO; -GABA-282 PO
[2024-02-20 16:55] LABS: BASO # 0.1 10^3/uL (0.0-0.2); BASO % 0.9 % (0.0-1.0); EOS # 0.2 10^3/uL (0.0-0.5); EOS % 1.5 % (0.0-3.0); HEMATOCRIT 45.5 % (36.0-47.0); HEMOGLOBIN 14.9 g/dl (12.0-15.5); LYMPH % 29.3 % (24.0-44.0); MEAN CORPUSCULAR HEMOGLOBIN 32.4 pg (27.0-33.0); MEAN CORPUSCULAR HGB CONC 32.7 g/dl (32.0-36.5); MEAN CORPUSCULAR VOLUME 98.9 fl (80.0-96.0); MONO # 0.5 10^3/uL (0.0-0.8); NEUTROPHILS # 6.4 10^3/uL (1.5-8.5); NEUTROPHILS % 62.5 % (36.0-66.0); PLATELET COUNT, AUTOMATED 215 10^3/uL (150-450); WHITE BLOOD COUNT 10.2 10^3/uL (4.0-10.0)
== END ==
LOC: M SFHCCLAY 12:40
PROVIDERS: ATTEND Family Medicine
DX: I48.91 Unspecified atrial fibrillation (principal)

== ENCOUNTER → 2024-02-28 | Outpatient (REF) | payer MEDICARE, MEDICAID ==
[2024-02-28 11:47] LABS: CALCIUM LEVEL 9.5 MG/DL (8.3-10.6); CREATININE FOR GFR 1.29 MG/DL (0.55-1.30); GLOMERULAR FILTRATION RATE 41.9 (>32); POTASSIUM SERUM 4.2 MMOL/L (3.5-5.1)
[2024-02-28 12:00] LABS: HEMOGLOBIN A1c 7.4 % (4.0-6.0)
== END ==
LOC: M SFHCCLAY 08:04
PROVIDERS: ATTEND Family Medicine
DX: E11.9 Type 2 diabetes mellitus without complications (principal); I10 Essential (primary) hypertension

== ENCOUNTER → 2024-03-29 | Outpatient (CLI) | payer MEDICARE, MEDICAID ==
[~2024-03-29] MED LIST changes: -ADV250INH INH; +ADVA1AER9 INH; +CIPR250T26 PO; +SULF1TAB23 PO
== END ==
LOC: M CLY 10:08
PROVIDERS: ATTEND Nurse Practitioner Family
DX: J06.9 Acute upper respiratory infection, unspecified (principal); R06.02 Shortness of breath

== ENCOUNTER → 2024-03-29 | Outpatient (REF) | payer MEDICARE, MEDICAID ==
[~2024-03-29] MED LIST changes: -SULF1TAB23 PO
[2024-03-29 18:10] LABS: BASO # 0.1 10^3/uL (0.0-0.2); BASO % 0.6 % (0.0-1.0); EOS # 0.1 10^3/uL (0.0-0.5); EOS % 0.9 % (0.0-3.0); HEMATOCRIT 47.8 % (36.0-47.0); HEMOGLOBIN 15.5 g/dl (12.0-15.5); LYMPH # 2.5 10^3/uL (1.5-5.0); LYMPH % 23.2 % (24.0-44.0); MEAN CORPUSCULAR HEMOGLOBIN 32.1 pg (27.0-33.0); MEAN CORPUSCULAR HGB CONC 32.4 g/dl (32.0-36.5); MONO # 0.7 10^3/uL (0.0-0.8); MONO % 6.4 % (2.0-8.0); NEUTROPHILS # 7.3 10^3/uL (1.5-8.5); NEUTROPHILS % 68.4 % (36.0-66.0); PLATELET COUNT, AUTOMATED 200 10^3/uL (150-450); RED BLOOD COUNT 4.83 10^6/uL (4.00-5.40); WHITE BLOOD COUNT 10.6 10^3/uL (4.0-10.0)
[2024-03-29 18:12] LABS: ALBUMIN 3.6 G/DL (3.2-5.2); BILIRUBIN,TOTAL 0.8 MG/DL (0.3-1.2); CALCIUM LEVEL 9.6 MG/DL (8.3-10.6); CREATININE FOR GFR 1.71 MG/DL (0.55-1.30); GLOMERULAR FILTRATION RATE 30.3 (>32); MAGNESIUM LEVEL 1.5 MG/DL (1.8-2.4); POTASSIUM SERUM 3.9 MMOL/L (3.5-5.1); TOTAL PROTEIN 6.8 G/DL (5.7-8.2)
[2024-03-29 18:16] LABS: THYROID STIMULATING HORMONE 2.35 uIU/ML (0.55-4.78)
[2024-03-29 18:17] LABS: FREE T4 1.75 NG/DL (0.89-1.76)
== END ==
LOC: M SFHCCLAY 09:58
PROVIDERS: ATTEND Nurse Practitioner Family
DX: J06.9 Acute upper respiratory infection, unspecified (principal); R06.02 Shortness of breath; R07.89 Other chest pain; I48.91 Unspecified atrial fibrillation; E11.22 Type 2 diabetes mellitus with diabetic chronic kidney disease

== ENCOUNTER → 2024-04-01 | Outpatient (REF) | payer MEDICARE, MEDICAID ==
[2024-04-01 18:47] LABS: BASO # 0.1 10^3/uL (0.0-0.2); BASO % 0.4 % (0.0-1.0); EOS % 0.3 % (0.0-3.0); HEMATOCRIT 48.6 % (36.0-47.0); HEMOGLOBIN 15.7 g/dl (12.0-15.5); LYMPH % 24.7 % (24.0-44.0); MEAN CORPUSCULAR HEMOGLOBIN 31.8 pg (27.0-33.0); MEAN CORPUSCULAR HGB CONC 32.3 g/dl (32.0-36.5); MEAN CORPUSCULAR VOLUME 98.4 fl (80.0-96.0); MONO # 0.8 10^3/uL (0.0-0.8); MONO % 6.6 % (2.0-8.0); NEUTROPHILS # 8.1 10^3/uL (1.5-8.5); NEUTROPHILS % 67.5 % (36.0-66.0); PLATELET COUNT, AUTOMATED 177 10^3/uL (150-450); RED BLOOD COUNT 4.94 10^6/uL (4.00-5.40)
[2024-04-01 18:59] LABS: ALBUMIN 3.6 G/DL (3.2-5.2); BILIRUBIN,TOTAL 0.8 MG/DL (0.3-1.2); CALCIUM LEVEL 9.7 MG/DL (8.3-10.6); CREATININE FOR GFR 1.98 MG/DL (0.55-1.30); GLOMERULAR FILTRATION RATE 25.6 (>32); MAGNESIUM LEVEL 1.6 MG/DL (1.8-2.4); POTASSIUM SERUM 4.3 MMOL/L (3.5-5.1); TOTAL PROTEIN 6.9 G/DL (5.7-8.2)
== END ==
LOC: M SFHCCLAY 12:21
PROVIDERS: ATTEND Nurse Practitioner Family
DX: R11.2 Nausea with vomiting, unspecified (principal); Z87.19 Personal history of other diseases of the digestive system; R63.0 Anorexia; R63.4 Abnormal weight loss

== ENCOUNTER 2024-04-02 09:45 | Emergency (ER) | payer MEDICARE, MEDICAID ==
[~2024-04-02] VITALS: Ht 162.6 cm; Wt 70.7 kg
[~2024-04-02 09:45] MED LIST changes: -CIPR250T26 PO
[2024-04-02 12:42] LABS: BASO # 0.1 10^3/uL (0.0-0.2); BASO % 0.5 % (0.0-1.0); EOS % 0.2 % (0.0-3.0); HEMATOCRIT 49.2 % (36.0-47.0); HEMOGLOBIN 16.6 g/dl (12.0-15.5); LYMPH # 4.2 10^3/uL (1.5-5.0); LYMPH % 34.3 % (24.0-44.0); MEAN CORPUSCULAR HEMOGLOBIN 32.9 pg (27.0-33.0); MEAN CORPUSCULAR HGB CONC 33.7 g/dl (32.0-36.5); MEAN CORPUSCULAR VOLUME 97.4 fl (80.0-96.0); MONO # 0.7 10^3/uL (0.0-0.8); NEUTROPHILS # 7.2 10^3/uL (1.5-8.5); NEUTROPHILS % 58.5 % (36.0-66.0); PLATELET COUNT, AUTOMATED 181 10^3/uL (150-450); RED BLOOD COUNT 5.05 10^6/uL (4.00-5.40); WHITE BLOOD COUNT 12.3 10^3/uL (4.0-10.0)
[2024-04-02 13:06] LABS: ALBUMIN 3.6 G/DL (3.2-5.2); BILIRUBIN,DIRECT 0.3 MG/DL (<0.4); BILIRUBIN,TOTAL 0.8 MG/DL (0.3-1.2); CALCIUM LEVEL 10.2 MG/DL (8.3-10.6); CREATININE FOR GFR 1.91 MG/DL (0.55-1.30); GLOMERULAR FILTRATION RATE 26.6 (>32); POTASSIUM SERUM 4.4 MMOL/L (3.5-5.1); TOTAL PROTEIN 7.3 G/DL (5.7-8.2)
[2024-04-02] MEDS ORDERED: CIPR250T26 PO (16:22)
[2024-04-02 16:30] VITALS: BP 105/63; TEMP 97.8; O2SAT 95
[2024-04-05] MEDS ORDERED: SULF1TAB23 PO (08:09)
== END 2024-04-02 16:49 | disposition home or self-care (01) ==
LOC: M ED 09:45
DX: N30.00 Acute cystitis without hematuria (principal); I48.91 Unspecified atrial fibrillation; E11.9 Type 2 diabetes mellitus without complications; I10 Essential (primary) hypertension; K21.9 Gastro-esophageal reflux disease without esophagitis; K57.90 Diverticulosis of intestine, part unspecified, without perforation or abscess without bleeding; N28.1 Cyst of kidney, acquired; K44.9 Diaphragmatic hernia without obstruction or gangrene; Z79.01 Long term (current) use of anticoagulants; Z79.899 Other long term (current) drug therapy; Z88.0 Allergy status to penicillin; Z88.8 Allergy status to other drugs, medicaments and biological substances

== ENCOUNTER → 2024-04-08 | Outpatient (REF) | payer MEDICARE, MEDICAID ==
[~2024-04-08] MED LIST changes: +CIPR250T26 PO; +SULF1TAB23 PO
[2024-04-08 18:25] LABS: HEMATOCRIT 46.6 % (36.0-47.0); HEMOGLOBIN 15.5 g/dl (12.0-15.5); MEAN CORPUSCULAR HEMOGLOBIN 32.2 pg (27.0-33.0); MEAN CORPUSCULAR HGB CONC 33.3 g/dl (32.0-36.5); MEAN CORPUSCULAR VOLUME 96.9 fl (80.0-96.0); PLATELET COUNT, AUTOMATED 143 10^3/uL (150-450); RED BLOOD COUNT 4.81 10^6/uL (4.00-5.40)
[2024-04-08 18:26] LABS: ALBUMIN 3.2 G/DL (3.2-5.2); BILIRUBIN,TOTAL 0.5 MG/DL (0.3-1.2); CALCIUM LEVEL 9.3 MG/DL (8.3-10.6); CREATININE FOR GFR 1.7 MG/DL (0.55-1.30); GLOMERULAR FILTRATION RATE 30.5 (>32); POTASSIUM SERUM 3.9 MMOL/L (3.5-5.1); TOTAL PROTEIN 6.1 G/DL (5.7-8.2)
== END ==
LOC: M SFHCCLAY 09:44
PROVIDERS: ATTEND Nurse Practitioner Family
DX: R11.2 Nausea with vomiting, unspecified (principal); Z87.19 Personal history of other diseases of the digestive system; R63.0 Anorexia; R63.4 Abnormal weight loss; N17.9 Acute kidney failure, unspecified; N30.01 Acute cystitis with hematuria

== ENCOUNTER → 2024-04-19 | Outpatient (REF) | payer MEDICARE, MEDICAID ==
[2024-04-19 12:59] LABS: BASO % 0.5 % (0.0-1.0); EOS # 0.1 10^3/uL (0.0-0.5); EOS % 1.6 % (0.0-3.0); HEMATOCRIT 42.3 % (36.0-47.0); HEMOGLOBIN 13.9 g/dl (12.0-15.5); LYMPH # 2.8 10^3/uL (1.5-5.0); LYMPH % 34.6 % (24.0-44.0); MEAN CORPUSCULAR HEMOGLOBIN 32.4 pg (27.0-33.0); MEAN CORPUSCULAR HGB CONC 32.9 g/dl (32.0-36.5); MEAN CORPUSCULAR VOLUME 98.6 fl (80.0-96.0); MONO # 0.5 10^3/uL (0.0-0.8); MONO % 6.5 % (2.0-8.0); NEUTROPHILS # 4.5 10^3/uL (1.5-8.5); NEUTROPHILS % 56.5 % (36.0-66.0); PLATELET COUNT, AUTOMATED 171 10^3/uL (150-450); RED BLOOD COUNT 4.29 10^6/uL (4.00-5.40)
[2024-04-19 13:25] LABS: ALBUMIN 3.4 G/DL (3.2-5.2); BILIRUBIN,TOTAL 0.5 MG/DL (0.3-1.2); CALCIUM LEVEL 9.4 MG/DL (8.3-10.6); CREATININE FOR GFR 1.1 MG/DL (0.55-1.30); GLOMERULAR FILTRATION RATE 50.4 (>32); POTASSIUM SERUM 5.2 MMOL/L (3.5-5.1); TOTAL PROTEIN 6.2 G/DL (5.7-8.2)
== END ==
LOC: M SFHCCLAY 07:05
PROVIDERS: ATTEND Nurse Practitioner Family
DX: N18.30 Chronic kidney disease, stage 3 unspecified (principal); I12.9 Hypertensive chronic kidney disease with stage 1 through stage 4 chronic kidney disease, or unspecified chronic kidney disease

== ENCOUNTER → 2024-04-25 | Outpatient (REF) | payer MEDICARE, MEDICAID | LOC: M SFHCCLAY 16:48 | PROVIDERS: ATTEND Nurse Practitioner Family | DX: N30.00 Acute cystitis without hematuria (principal) ==

== ENCOUNTER → 2024-05-09 | Outpatient (REF) | payer MEDICARE, MEDICAID ==
[2024-05-09 10:54] LABS: ALBUMIN 3.4 G/DL (3.2-5.2); BILIRUBIN,TOTAL 0.7 MG/DL (0.3-1.2); CALCIUM LEVEL 9.4 MG/DL (8.3-10.6); CREATININE FOR GFR 1.17 MG/DL (0.55-1.30); GLOMERULAR FILTRATION RATE 46.9 (>32); POTASSIUM SERUM 4.1 MMOL/L (3.5-5.1); TOTAL PROTEIN 6.2 G/DL (5.7-8.2)
== END ==
LOC: M SFHCCLAY 06:59
PROVIDERS: ATTEND Nurse Practitioner Family
DX: N30.00 Acute cystitis without hematuria (principal)

== ENCOUNTER → 2024-06-11 | Outpatient (REF) | payer MEDICARE, MEDICAID ==
[2024-06-11 17:24] LABS: BASO # 0.1 10^3/uL (0.0-0.2); BASO % 0.8 % (0.0-1.0); EOS # 0.1 10^3/uL (0.0-0.5); EOS % 1.2 % (0.0-3.0); HEMATOCRIT 45.4 % (36.0-47.0); HEMOGLOBIN 15.2 g/dl (12.0-15.5); LYMPH # 2.5 10^3/uL (1.5-5.0); LYMPH % 28.6 % (24.0-44.0); MEAN CORPUSCULAR HEMOGLOBIN 32.8 pg (27.0-33.0); MEAN CORPUSCULAR HGB CONC 33.5 g/dl (32.0-36.5); MEAN CORPUSCULAR VOLUME 98.1 fl (80.0-96.0); MONO # 0.5 10^3/uL (0.0-0.8); NEUTROPHILS # 5.6 10^3/uL (1.5-8.5); NEUTROPHILS % 63.2 % (36.0-66.0); PLATELET COUNT, AUTOMATED 161 10^3/uL (150-450); RED BLOOD COUNT 4.63 10^6/uL (4.00-5.40); WHITE BLOOD COUNT 8.9 10^3/uL (4.0-10.0)
[2024-06-11 17:35] LABS: ALBUMIN 3.6 G/DL (3.2-5.2); BILIRUBIN,TOTAL 0.7 MG/DL (0.3-1.2); CALCIUM LEVEL 9.2 MG/DL (8.3-10.6); CHOLESTEROL RISK RATIO 2.95 (<5); CREATININE FOR GFR 1.17 MG/DL (0.55-1.30); GLOMERULAR FILTRATION RATE 46.9 (>32); HDL CHOLESTEROL 45.7 MG/DL (>40); LDL CHOLESTEROL 69.9 MG/DL (<100); NON-HDL-C 89.3 MG/DL; PERCENT SATURATION 29.8 % (13.2-45.0); POTASSIUM SERUM 4.4 MMOL/L (3.5-5.1); THYROID STIMULATING HORMONE 1.747 uIU/ML (0.55-4.78); TOTAL PROTEIN 6.6 G/DL (5.7-8.2)
[2024-06-11 17:36] LABS: FREE T4 1.31 NG/DL (0.89-1.76)
[2024-06-11 17:52] LABS: HEMOGLOBIN A1c 6.1 % (4.0-6.0)
== END ==
LOC: M SFHCCLAY 09:44
PROVIDERS: ATTEND Nurse Practitioner Family
DX: Z00.00 Encounter for general adult medical examination without abnormal findings (principal); I11.0 Hypertensive heart disease with heart failure; E11.9 Type 2 diabetes mellitus without complications; J45.20 Mild intermittent asthma, uncomplicated; E78.00 Pure hypercholesterolemia, unspecified; I48.91 Unspecified atrial fibrillation; D50.9 Iron deficiency anemia, unspecified; K57.92 Diverticulitis of intestine, part unspecified, without perforation or abscess without bleeding

== ENCOUNTER → 2024-12-11 | Outpatient (REF) | payer MEDICARE, MEDICAID ==
[2024-12-11 12:42] LABS: ALT/SGPT 23.0 U/L (7.0-40); AST/SGOT 24.0 U/L (<34); CALCIUM LEVEL 9.5 MG/DL (8.3-10.6); CARBON DIOXIDE LEVEL 29.0 MMOL/L (20-31); CHLORIDE LEVEL 102.0 MMOL/L (98-107); CHOLESTEROL LEVEL 129.0 MG/DL (<200); CHOLESTEROL RISK RATIO 3.55 (<5); CREATININE FOR GFR 1.16 MG/DL (0.55-1.30); GLOMERULAR FILTRATION RATE 46.2 (>32); LDL CHOLESTEROL 67.5 MG/DL (<100); NON-HDL-C 92.7 MG/DL; POTASSIUM SERUM 4.5 MMOL/L (3.5-5.1); SODIUM LEVEL 142.0 MMOL/L (136-145); TRIGLYCERIDES LEVEL 126.0 MG/DL (<150)
[2024-12-11 12:45] LABS: ESTIMATED AVERAGE GLUCOSE 126.0 MG/DL (60-110)
== END ==
LOC: M SFHCCLAY 09:13
PROVIDERS: ATTEND Nurse Practitioner Family
DX: I10 Essential (primary) hypertension (principal); E11.9 Type 2 diabetes mellitus without complications; J45.20 Mild intermittent asthma, uncomplicated; E78.00 Pure hypercholesterolemia, unspecified; I48.91 Unspecified atrial fibrillation; D50.9 Iron deficiency anemia, unspecified; I50.9 Heart failure, unspecified